=== PATIENT | female | born 1945 | race Caucasian/White ===

== ENCOUNTER → 2018-07-28 | Outpatient (CLI) | payer MEDICARE ==
--- NOTE | 2018-07-28 13:31 | XR ---
EXAMINATION TYPE: XR chest 2V DATE OF EXAM: 07/28/2018 COMPARISON: NONE HISTORY: Cough TECHNIQUE: Frontal and lateral views of the chest are obtained. FINDINGS: There is no focal air space opacity, pleural effusion, or pneumothorax seen. The cardiac silhouette size is within normal limits. There is a spinal curvature. Prominent lung volumes suggest underlying COPD. Bronchial wall thickening is present. Thoracic spondylosis is present. The aorta is dense. The osseous structures are intact. IMPRESSION: Correlate for bronchitis, reactive airways disease.
== END | disposition home or self-care (01) ==
LOC: RADXRMAIN 12:01
PROVIDERS: ATTEND Family Medicine
DX: R05 Cough (principal)
CPT/HCPCS: 71046

== ENCOUNTER → 2018-09-18 | Outpatient (CLI) | payer MEDICARE ==
--- NOTE | 2018-09-18 14:33 | MR ---
EXAMINATION TYPE: MR knee RT wo con DATE OF EXAM: 09/18/2018 COMPARISON: None HISTORY: Rt knee pain TECHNIQUE: Multiplanar, multisequence imaging of the right knee is performed without IV contrast. FINDINGS: There is extensive susceptibility artifact from postsurgical change of the patella severely limiting the examination. MEDIAL MENISCUS: There is truncation and slight blunting of the posterior horn with possible tear of the free edge of the posterior horn of the medial meniscus. LATERAL MENISCUS: The anterior horn is absent, possibly due to prior meniscectomy or tear. Posterior horn appears intact. CRUCIATE LIGAMENTS: Anterior cruciate ligament is nonvisualized on the sagittal view and uncertain to be continuous on the coronal view. Posterior cruciate ligament appears intact and unremarkable. COLLATERAL LIGAMENTS: The medial collateral ligament and lateral collateral ligament complex are inta ct and unremarkable. EXTENSOR MECHANISM: Markedly limited given susceptibility artifact EFFUSION: No significant suprapatellar joint effusion. POPLITEAL CYST: Small popliteal cyst is seen. TRICOMPARTMENT SPACES: There are marginal bicompartmental osteophytes that are moderate. Patella is n ondiagnostic. CARTILAGE: Nondiagnostic given the extensive susceptibility artifact from the prior patellar surgery. BONE MARROW SIGNAL: Focal bone marrow edema is seen of the tibial plateau to the medial tibial eminen juan. IMPRESSION: Exam is extremely limited given prior surgery of the patella/right knee creating susceptibility artif act and limiting visualization. 1. There is a probable radial tear of the free edge of the posterior horn of the medial meniscus. 2. Anterior horn of the lateral meniscus appears absent, possibly due to prior meniscectomy, correlat e with prior surgery. Alternatively displaced tear would be considered in the absence of prior surgic al intervention. 3. Anterior cruciate ligament is nondiagnostic and not well-visualized. Posterior cruciate ligament i s unremarkable. 4. Focal bone marrow edema of the tibia centrally deep to the medial tibial eminences.
== END | disposition home or self-care (01) ==
LOC: RADMRIMAIN 13:35
PROVIDERS: ATTEND Family Medicine
DX: M89.9 Disorder of bone, unspecified (principal)

== ENCOUNTER → 2018-10-07 | Outpatient (CLI) | payer MEDICARE ==
--- NOTE | 2018-10-07 13:50 | MM ---
Reason for exam: screening (asymptomatic). History: Patient is postmenopausal. Family history of breast cancer in sister at age 50. Physical Findings: A clinical breast exam by your physician is recommended on an annual basis and results should be correlated with mammographic findings. MG 3D Screening Mammo W/Cad Bilateral CC and MLO view(s) were taken. The breast tissue is heterogeneously dense. This may lower the sensitivity of mammography. There is no discrete abnormality. ASSESSMENT: Negative, BI-RAD 1 RECOMMENDATION: Routine screening mammogram of both breasts in 1 year.
== END | disposition home or self-care (01) ==
LOC: RADMAMWWP 12:52
PROVIDERS: ATTEND Family Medicine
DX: Z12.31 Encounter for screening mammogram for malignant neoplasm of breast (principal)
CPT/HCPCS: 77063; 77067

== ENCOUNTER → 2022-07-09 | Outpatient (CLI) | payer MEDICARE ==
--- NOTE | 2022-07-09 15:21 | XR ---
EXAMINATION TYPE: XR ribs bilat w pa chest xray DATE OF EXAM: 07/09/2022 CLINICAL HISTORY: Chest and bilateral rib pain after recent fall injury. TECHNIQUE: Single frontal view of the chest is obtained. A frontal and oblique images of the bilatera l ribs. COMPARISON: Chest x-ray July 28, 2018 FINDINGS: There is new right mid lung linear atelectasis and/or scarring. There is bilateral basilar opacity favoring atelectasis. No pleural effusion or pneumothorax is seen bilaterally. The cardiac si lhouette size is stable and within normal limits. The osseous structures are intact. Dedicated images of the bilateral ribs show acute minimally displaced fractures involving the anterio r left 10th rib. No acute displaced right-sided rib fractures. Overlying soft tissue is unremarkable bilaterally. IMPRESSION: 1. Acute minimally displaced fracture anterior left 10th rib. No acute displaced right-sided rib frac tures. 2. New patchy bibasilar atelectasis and right mid lung linear atelectasis and/or scarring.
== END | disposition home or self-care (01) ==
LOC: RADXRMAIN 14:37
PROVIDERS: ATTEND Internal Medicine
DX: S22.32XA Fracture of one rib, left side, initial encounter for closed fracture (principal); R07.82 Intercostal pain; J98.11 Atelectasis
CPT/HCPCS: 71111

== ENCOUNTER → 2022-07-25 | Outpatient (CLI) | payer MEDICARE ==
[2022-07-25 10:17] LABS: Basophils % (A) 0 %; Eosinophils # (A) 0.2 k/uL (0-0.7); Eosinophils % (A) 2 %; HCT 42.3 % (34.0-46.0); Lymphocytes % (A) 12 %; MCH 29.2 pg (25.0-35.0); MCHC 33.1 g/dL (31.0-37.0); Mean Platelet Volume 8.5; Monocytes # (A) 0.5 k/uL (0-1.0); Monocytes % (A) 6 %; Neutrophils # (A) 6.2 k/uL (1.3-7.7); Neutrophils % (A) 77 %; Platelet Count 261 k/uL (150-450); RBC 4.81 m/uL (3.80-5.40)
[2022-07-25 10:34] LABS: ALT 19 U/L (4-34); AST 24 U/L (14-36); African American GFR (CKD) >90 (>60 ml/min/1.73 sqM); Albumin 4.1 g/dL (3.5-5.0); Albumin/Globulin Ratio 1.5; Alkaline Phosphatase 134 U/L (38-126); Anion Gap 9 mmol/L; Blood Urea Nitrogen 13 mg/dL (7-17); Calcium 9.5 mg/dL (8.4-10.2); Carbon Dioxide 26 mmol/L (22-30); Chloride 105 mmol/L (98-107); Globulin 2.7 g/dL; Glucose 95 mg/dL (74-99); Non-African American GFR(CKD) 86 (>60 ml/min/1.73 sqM); Potassium 4.5 mmol/L (3.5-5.1); Sodium 140 mmol/L (137-145); Total Bilirubin 0.9 mg/dL (0.2-1.3); Total Protein 6.8 g/dL (6.3-8.2)
== END | disposition home or self-care (01) ==
LOC: LABWHC1 09:26
PROVIDERS: ATTEND Internal Medicine
DX: R07.81 Pleurodynia (principal)
CPT/HCPCS: 36415; 80053; 84484; 85025; 85379

== ENCOUNTER → 2022-07-25 | Outpatient (CLI) | payer MEDICARE ==
--- NOTE | 2022-07-25 12:57 | CT ---
EXAMINATION TYPE: CT angio chest DATE OF EXAM: 07/25/2022 12:29 PM COMPARISON: X-ray 07/09/2022 HISTORY: elevated d-dimer, recent rib fx CT DLP: 251.9 mGycm Automated exposure control for dose reduction was used. CONTRAST: CTA scan of the thorax is performed with IV Contrast, patient injected with 60cc mL of Isovue 370, pu lmonary embolism protocol. . FINDINGS: LUNGS: The lungs are grossly clear, there is no concerning pneumonia identified. There is no pleura l effusion or pneumothorax seen. The tracheobronchial tree is patent. Benign calcified granuloma rig ht lower lobe. Areas of subsegmental consolidation most typical of scarring or atelectasis bilaterall y lower lobes. One Gonzáles subpleural nodule image 54 right upper lobe mild biapical pleural thickenin g. There is a 4 mm nodule right upper lobe. MEDIASTINUM: There is satisfactory enhancement of the pulmonary artery and its branches, there is no CT evidence for pulmonary embolism. There are no greater than 1 cm hilar or mediastinal lymph nodes. Calcified lymph nodes are seen involving the hilum. No pericardial effusion is seen. OTHER: Multilevel hypertrophic and degenerative changes. There is splenic granuloma. There is a larg e hiatal hernia and there is a scoliosis.. IMPRESSION: 1. Mildly displaced acute fracture anterolateral left 10th rib 2. Subsegmental consolidation bilaterally most typical of scarring or atelectasis. 3. Calcified granuloma right lower lobe. Additional calcified 4 mm which is 103 4. Large hiatal hernia.
== END | disposition home or self-care (01) ==
LOC: RADCTMAIN 11:48
PROVIDERS: ATTEND Internal Medicine
DX: S22.32XA Fracture of one rib, left side, initial encounter for closed fracture (principal); K44.9 Diaphragmatic hernia without obstruction or gangrene; J84.10 Pulmonary fibrosis, unspecified; R79.1 Abnormal coagulation profile
CPT/HCPCS: 71275; Q9967

== ENCOUNTER → 2022-08-16 | Outpatient (CLI) | payer MEDICARE ==
--- NOTE | 2022-08-17 06:17 | XR ---
EXAMINATION TYPE: XR chest 2V DATE OF EXAM: 08/16/2022 COMPARISON: CTA chest May 27, 2022 HISTORY: Difficulty in breathing. TECHNIQUE: Frontal and lateral views of the chest are obtained. FINDINGS: There is mild chronic parenchymal changes bilaterally without suspicious focal air space o pacity, pleural effusion, or pneumothorax seen. The cardiac silhouette size is stable and within nor mal limits. Small to moderate sized hiatal hernia is redemonstrated. Underlying scoliosis is redemons trated. IMPRESSION: No suspicious acute pulmonary process.
== END | disposition home or self-care (01) ==
LOC: RADXRMAIN 16:18
PROVIDERS: ATTEND Internal Medicine
DX: R07.82 Intercostal pain (principal); R06.00 Dyspnea, unspecified
CPT/HCPCS: 71046

== ENCOUNTER → 2022-09-06 | Outpatient (CLI) | payer MEDICARE ==
--- NOTE | 2022-09-07 18:28 | MM ---
Reason for Exam: Screening (asymptomatic). Last mammogram was performed 3 year(s) and 11 month(s) ago. Patient History: Menarche at age 13. First Full-Term at age 15. Postmenopausal. Patient has history of breast feeding. Sister had breast cancer, age 50. Risk Values: Lory 5 year model risk: 2.9%. NCI Lifetime model risk: 4.8%. Prior Study Comparison: 10/07/2018 Bilateral Screening Mammogram, [facility]. Tissue Density: There are scattered fibroglandular densities. Findings: Analyzed By CAD. There is no suspicious group of microcalcifications or new suspicious mass in either breast. Overall Assessment: Negative, BI-RAD 1 Management: Screening Mammogram of both breasts in 1 year. . Patient should continue monthly self-breast exams. A clinical breast exam by your physician is recommended on an annual basis. This exam should not preclude additional follow-up of suspicious palpable abnormalities. Note on Lory scores and lifetime risk: 1. A Lory score greater than 3% is considered moderate risk. If this is the case, consider specialist referral to assess eligibility for a risk reducing agent. 2. If overall lifetime risk for the development of breast cancer is 20% or higher, the patient may qualify for future screening with alternating mammogram and breast MRI. Electronically signed and approved by: Jessika Hadley M.D. Radiologist
== END | disposition home or self-care (01) ==
LOC: RADMAMWWP 15:47
PROVIDERS: ATTEND Internal Medicine
DX: Z12.31 Encounter for screening mammogram for malignant neoplasm of breast (principal); I10 Essential (primary) hypertension; Z80.3 Family history of malignant neoplasm of breast; Z78.0 Asymptomatic menopausal state
CPT/HCPCS: 77063; 77067

== ENCOUNTER → 2023-02-25 | Outpatient (CLI) | payer MEDICARE ==
--- NOTE | 2023-02-25 15:01 | XR ---
EXAMINATION TYPE: XR thoracic spine 2V DATE OF EXAM: 02/25/2023 COMPARISON: None HISTORY: Thoracic spine pain, fall TECHNIQUE: 3 view thoracic spine FINDINGS: Mild degenerative disc changes are present. Spondylosis is present. A scoliosis is present. There are 12 thoracic type vertebral bodies. Pedicles are intact. Vertebral body heights are preserv ed IMPRESSION: 1. Chronic changes with scoliosis and degenerative disc changes. No acute osseous abnormality eviden t
== END | disposition home or self-care (01) ==
LOC: RADXRMAIN 14:26
PROVIDERS: ATTEND Internal Medicine
DX: M51.34 Other intervertebral disc degeneration, thoracic region (principal); M47.814 Spondylosis without myelopathy or radiculopathy, thoracic region; M41.84 Other forms of scoliosis, thoracic region
CPT/HCPCS: 72070

== ENCOUNTER → 2023-03-22 | Outpatient (CLI) | payer MEDICARE ==
[~2023-03-22] MED LIST: SODIUM CHLORIDE 0.9% 500 ML 500 ML in EMPTY BAG 1 BAG IV PRN; ZOLEDRONIC ACID 5 MG in SODIUM CHLORIDE 0.9% 100 ML IV NR
[2023-03-22 13:31] VITALS: BP 126/72; PULSE 93; RESP 16; TEMP 98.1
== END ==
LOC: PROCWHC3 12:50
PROVIDERS: ATTEND Internal Medicine
DX: M81.0 Age-related osteoporosis without current pathological fracture (principal)
CPT/HCPCS: 96365; J3489

== ENCOUNTER → 2023-07-11 | Outpatient (CLI) | payer MEDICARE ==
[2023-07-12 03:01] LABS: Reticulocyte % 1.08 % (0.10-1.80)
[2023-07-12 03:39] LABS: % Iron Saturation 3.39 (12.00-45.00); Carcinoembryonic Antigen 2.1 ng/mL (0.0-4.9); Ferritin 12.2 ng/mL (10.0-291.0)
[2023-07-12 12:33] LABS: Free Kappa Lt Chain Qnt, Serum 2.26 mg/dL (0.33-1.94); Free Lambda Lt Chain Qnt, Seru 1.99 mg/dL (0.57-2.63)
== END | disposition home or self-care (01) ==
LOC: LABWHC1 15:10
PROVIDERS: ATTEND Internal Medicine
DX: I34.0 Nonrheumatic mitral (valve) insufficiency (principal); M81.0 Age-related osteoporosis without current pathological fracture; M17.9 Osteoarthritis of knee, unspecified; E78.2 Mixed hyperlipidemia; K21.9 Gastro-esophageal reflux disease without esophagitis; R91.1 Solitary pulmonary nodule
CPT/HCPCS: 36415; 82378; 82607; 82728; 82746; 83010; 83540; 83550; 83615; 83880; 83883; 84165; 85045

== ENCOUNTER → 2023-07-17 | Outpatient (CLI) | payer MEDICARE ==
[2023-07-17 09:30] LABS: African American GFR (CKD) >90 (>60 ml/min/1.73 sqM); Blood Urea Nitrogen 12 mg/dL (7-17); Non-African American GFR(CKD) 88 (>60 ml/min/1.73 sqM)
--- NOTE | 2023-07-17 21:27 | NM ---
EXAMINATION TYPE: NM bone scan whole body DATE OF EXAM: 07/17/2023 COMPARISON: CT chest, CT abdomen and pelvis HISTORY: Anemia Delayed whole-body scanning was performed following the injection of 22.6 mCi Tc 99m MDP. Images wer e acquired 3.5 hours post injection. FINDINGS: There is a left hip prosthesis. Some uptake at the distal stem of the left hip prosthesis c an be normal with a prosthesis present. There is increased radiotracer at the lateral greater trochan ter. Underlying fracture is not excluded. No definite abnormality identified on the CT abdomen and pe lvis images. However, a series very limited due to significant beam hardening artifact at this level. There is a right knee prosthesis. There is a focus of radiotracer accumulation within the medial posterior 11th right rib. 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 There is increased radiotracer within the posterior right L3-4 and L4-5 region likely degenerative in nature within the scoliotic lumbar spine. Some focal uptake appears to be within the proximal sternu m near the sternomanubrial junction. This appears to correlate with a prior fracture which may have i ncomplete healing. IMPRESSION: 1. Radiotracer accumulation within the sternum and posterior right medial 11th rib correlate with arielle or fractures. 2. Uptake within the left greater trochanter of uncertain etiology.
--- NOTE | 2023-07-19 16:32 | CT ---
EXAMINATION TYPE: CT chest wo con CT DLP: combined 1025.6 mGycm, Automated exposure control for dose reduction was used. DATE OF EXAM: 07/17/2023 11:50 AM COMPARISON: Chest radiograph from same day. Multiple CTs of the chest with most recent on . CLINICAL INDICATION:Female, 78 years old with history of R91.1 RUL pulmonary nodule; PHH, anemia, ruben g nodule TECHNIQUE: Multiple axial images were obtained through the chest. Sagittal and coronal reformats were created for review. Contrast used: mL of (None if empty) Oral contrast used: (None if empty) FINDINGS: LUNGS/ PLEURA: 2 mm nodule identified on acquisition. Previously discussed 4 mm nodules are reidentif ied. Calcified granulomas reidentified in the right lung. Right lower lobe. 3 mm nodule, Image 28 in the right middle lobe appears substantially smaller AIRWAY: Patent and unremarkable. HEART: Size within normal limits. MEDIASTINUM: No gross evidence of adenopathy. VASCULATURE: No aortic aneurysm. MUSCULOSKELETAL: No acute osseous abnormalities SOFT TISSUES/LYMPH NODES: Unremarkable. LOWER NECK: No significant findings. UPPER ABDOMEN: Gastric pull-through versus IMPRESSION: Stable tiny nodules. No further follow-up required per guidelines Follow up recommendations for incidental pulmonary nodules, if there are any, are per Fleischner?s [employer] or [employer]. [email or web address]=us
--- NOTE | 2023-07-22 17:15 | CT ---
EXAMINATION TYPE: CT abdomen pelvis w con CT DLP: combined 1025.6 mGycm, Automated exposure control for dose reduction was used. DATE OF EXAM: 07/17/2023 11:50 AM COMPARISON: CT abdomen pelvis most recent from CLINICAL INDICATION:Female, 78 years old with history of D64.9 anemia; anemia TECHNIQUE: Axial CT abdomen pelvis w con;Sagittal and coronal reformats were created on a separate w orkstation. Contrast used:100 mL of Isovue 300 with IV Contrast, (none if empty) Oral contrast used: with Oral Contrast (none if empty) FINDINGS: LOWER CHEST: Calcified granuloma right lung base. Platelike atelectasis right base posteriorly. ABDOMEN LIVER: Faintly seen calcified granuloma In the right lung. Calcified granulomas spleen indicating hea led granulomatous disease. No active process. GALLBLADDER AND BILE DUCTS: Unremarkable. PANCREAS: Unremarkable. SPLEEN: Healed Granulomatous disease. Acute process. ADRENAL GLANDS: Unremarkable. KIDNEYS AND URETERS: No evidence of hydronephrosis or renal calculus. The ureters are unremarkable. PELVIS BLADDER: Unremarkable REPRODUCTIVE: Unremarkable. ABDOMEN & PELVIS STOMACH AND BOWEL: Stomach and duodenum are unremarkable. No evidence of bowel obstruction. Divertic ulosis. PERITONEUM/RETROPERITONEUM: No evidence of pneumoperitoneum or free fluid. VASCULATURE: No evidence of aortic aneurysm. MUSCULOSKELETAL: No acute osseous abnormalities. Left Hip arthroplasty. Multilevel vacuum disc and en dplate spondylosis. Disc osteophyte complexes LYMPH NODES: No gross evidence for lymphadenopathy. SOFT TISSUE/ABDOMINAL WALL: Unremarkable IMPRESSION: 1. No acute process detected.
== END | disposition home or self-care (01) ==
LOC: RADNMMAIN 08:44
PROVIDERS: ATTEND Internal Medicine
DX: D64.9 Anemia, unspecified (principal); R91.1 Solitary pulmonary nodule; R91.8 Other nonspecific abnormal finding of lung field; Z96.642 Presence of left artificial hip joint; Z96.651 Presence of right artificial knee joint
CPT/HCPCS: 82565; 84520; 71250; 74177; 36415; 78306; A9503; Q9967

== ENCOUNTER → 2023-07-18 | Outpatient (CLI) | payer MEDICARE ==
--- NOTE | 2023-07-18 20:19 | US ---
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 TECHNIQUE: Carotid duplex ultrasound examination. Indirect Doppler criteria was utilized. FINDINGS: EXAM MEASUREMENTS: RIGHT: Peak Systolic Velocity (PSV) cm/sec ----- Right CCA: 72.4 ----- Right ICA: 81.2 ----- Right ECA: 149.5 ICA/CCA ratio: 1.1 RIGHT: End Diastole cm/sec ----- Right CCA: 13.1 ----- Right ICA: 21.9 ----- Right ECA: 9.7 LEFT: Peak Systolic Velocity (PSV) cm/sec ----- Left CCA: 79.8 ----- Left ICA: 96.8 ----- Left ECA: 79.7 ICA/CCA ratio: 1.2 LEFT: End Diastole cm/sec ----- Left CCA: 17.1 ----- Left ICA: 20.8 ----- Left ECA: 11.1 VERTEBRALS (direction of flow): Right Vertebral: Antegrade Left Vertebral: Antegrade Rhythm: Normal CREDIT OPERATIONS SPECIALIST NOTES: Mild plaque bilateral bifurcation. Elevated velocity seen right ECA. IMPRESSION: 1. Atheromatous plaquing without significant flow-limiting stenosis internal carotid arteries. 2. There may be some moderate narrowing of the right external carotid artery based on velocities Criteria for Assigning % of Stenosis / Diameter reduction (Estimation based on the indirect measurements of the internal carotid artery velocities (ICA PSV). 1. Normal (no stenosis)=ICA PSV < 125 cm/s: ratio < 2.0: ICA EDV<40 cm/s. 2. Less than 50% stenosis=ICA PSV < 125 cm/s: ratio < 2.0: ICA EDV<40 cm/s. 3. 50 to 69% stenosis=ICA PSV of 125 to 230 cm/s: ration 2.0 ? 4.0: ICA EDV 40-100 cm/s. 4. Greater than 70% stenosis to near occlusion= ICA PSV > 230 cm/s: ratio > 4.0: ICA EDV > 100 cm/s. 5. Near occlusion= ICA PSV velocities may be low or undetectable: variable ratio and ICA EDV. 6. Total occlusion=unable to detect flow.
== END | disposition home or self-care (01) ==
LOC: RADUSWWP 14:01
PROVIDERS: ATTEND Internal Medicine
DX: I65.23 Occlusion and stenosis of bilateral carotid arteries (principal); I34.0 Nonrheumatic mitral (valve) insufficiency
CPT/HCPCS: 93880

== ENCOUNTER → 2023-09-10 | Outpatient (CLI) | payer MEDICARE ==
--- NOTE | 2023-09-19 13:37 | MM ---
Reason for Exam: Screening (asymptomatic). Last screening mammogram was performed 12 month(s) ago. Patient History: Menarche at age 13. First Full-Term at age 15. Postmenopausal. Patient has history of breast feeding. Sister had breast cancer, age 50. Risk Values: Lory 5 year model risk: 2.8%. NCI Lifetime model risk: 4.3%. Prior Study Comparison: 10/07/2018 Bilateral Screening Mammogram, [facility]. 09/06/2022 Bilateral MG 3D screening mammo w/cad, [facility]. Tissue Density: There are scattered areas of fibroglandular density. Findings: Analyzed By CAD. Subareolar focal asymmetry on the right remains unchanged. No significant change from prior exams. There is no suspicious group of microcalcifications or new suspicious mass in either breast. Overall Assessment: Benign, BI-RAD 2 Management: Screening Mammogram of both breasts in 1 year. . Patient should continue monthly self-breast exams. A clinical breast exam by your physician is recommended on an annual basis. This exam should not preclude additional follow-up of suspicious palpable abnormalities. Note on Lory scores and lifetime risk: 1. A Lory score greater than 3% is considered moderate risk. If this is the case, consider specialist referral to assess eligibility for a risk reducing agent. 2. If overall lifetime risk for the development of breast cancer is 20% or higher, the patient may qualify for future screening with alternating mammogram and breast MRI. Electronically signed and approved by: Jessika Hadley M.D. Radiologist
== END | disposition home or self-care (01) ==
LOC: RADMAMWWP 13:37
PROVIDERS: ATTEND Internal Medicine
DX: Z12.31 Encounter for screening mammogram for malignant neoplasm of breast (principal); Z80.3 Family history of malignant neoplasm of breast; Z78.0 Asymptomatic menopausal state
CPT/HCPCS: 77067

== ENCOUNTER → 2023-09-19 | Outpatient (CLI) | payer MEDICARE | END | disposition home or self-care (01) | LOC: RADMAMWWP 12:48 | PROVIDERS: ATTEND Internal Medicine | DX: R92.8 Other abnormal and inconclusive findings on diagnostic imaging of breast (principal) ==

== ENCOUNTER 2023-10-06 04:57 | Inpatient (IN) | payer MEDICARE ==
[2023-10-06] MEDS: PIPERACILLIN-TAZOBACTAM 3.375 GM in SODIUM CHLORIDE 0.9% 100 ML IVPB STA (05:29)
[2023-10-06 06:17] LABS: Prothrombin Time 10.8 sec (10.0-12.5)
[2023-10-06 06:19] LABS: Basophils % (A) 0 %; Eosinophils % (A) 1 %; HCT 37.3 % (34.0-46.0); HGB 11.8 gm/dL (11.4-16.0); Hypochromasia Marked; Lymphocytes # (A) 1.7 k/uL (1.0-4.8); Lymphocytes % (A) 31 %; MCH 27.3 pg (25.0-35.0); MCHC 31.6 g/dL (31.0-37.0); MCV 86.4 fL (80.0-100.0); Mean Platelet Volume 11.3; Monocytes # (A) 0.1 k/uL (0-1.0); Monocytes % (A) 2 %; Neutrophils # (A) 3.3 k/uL (1.3-7.7); Neutrophils % (A) 61 %; Platelet Count 174 k/uL (150-450); RBC 4.32 m/uL (3.80-5.40); RDW 15.6 % (11.5-15.5); WBC 5.3 k/uL (3.8-10.6)
[2023-10-06 06:39] LABS: ALT 23 U/L (4-34); African American GFR (CKD) 84 (>60 ml/min/1.73 sqM); Anion Gap 14 mmol/L; Blood Urea Nitrogen 18 mg/dL (7-17); Calcium 8.7 mg/dL (8.4-10.2); Carbon Dioxide 19 mmol/L (22-30); Chloride 104 mmol/L (98-107); Glucose 116 mg/dL (74-99); Non-African American GFR(CKD) 73 (>60 ml/min/1.73 sqM); Sodium 137 mmol/L (137-145)
[2023-10-06 06:41] LABS: AST 61 U/L (14-36); Albumin 4.5 g/dL (3.5-5.0); Alkaline Phosphatase 101 U/L (38-126); Potassium 5.1 mmol/L (3.5-5.1); Total Bilirubin 1.1 mg/dL (0.2-1.3); Total Protein 7.3 g/dL (6.3-8.2)
[2023-10-06 06:42] LABS: Partial Thromboplastin Time 16.7 sec (22.0-30.0)
[2023-10-06 06:47] LABS: NT-Pro-B-Type Natriuretic Pept 60 pg/mL
[2023-10-06] MEDS: AZITHROMYCIN 500 MG in SODIUM CHLORIDE 0.9% 250 ML IVPB STA (06:52)
[2023-10-06] MEDS: SODIUM CHLORIDE 0.9% 1,000 ML IV ONE (06:58)
[2023-10-06] MEDS: SODIUM CHLORIDE 0.9% 500 ML 500 ML IV STA (06:58)
--- NOTE | 2023-10-06 07:18 | XR ---
EXAMINATION TYPE: XR chest 1V portable DATE OF EXAM: 10/06/2023 5:13 AM CLINICAL INDICATION:Female, 78 years old with history of dyspnea; COMPARISON: Chest radiographs from 11/09/2022. TECHNIQUE: XR chest 1V portable Frontal view of the chest. FINDINGS: Lungs/Pleura: Left-sided airspace opacities. There is no evidence of pleural effusion, right focal co nsolidation, or pneumothorax. Pulmonary vascularity: Unremarkable. Heart/mediastinum: Cardiomediastinal silhouette is unremarkable. Musculoskeletal: No acute osseous pathology. IMPRESSION: Left predominant airspace opacities correlate for pneumonia.
[2023-10-06] MEDS: SODIUM CHLORIDE 0.9% 1,000 ML IV STA (07:34)
--- NOTE | 2023-10-06 08:17 | ED ---
SOB HPI - General Chief Complaint: Shortness of Breath Stated Complaint: HAYDE Time Seen by Provider: 10/06/23 05:02 Source: patient, EMS Mode of arrival: EMS Limitations: altered mental status - History of Present Illness Initial Comments: Patient is an 78-year-old woman arriving by ambulance to have evaluation for cough and shortness of breath. History comes from both the patient and her . She started to have a cough approximately 1 week ago. Over the past few days she was coughing more frequently and starting to bring up some sputum. Over the course of last night into this morning she was becoming progressively more short of breath. The patient denies history of previous pulmonary disease. Denies history of congestive heart failure or heart disease. She was not sure if she had fever or not. MD Complaint: shortness of breath, cough Onset/Timin -: week(s) Consistency: constant Improves With: nothing Worsens With: nothing Associated Symptoms: cough, sputum production Treatments Prior to Arrival: oxygen - Related Data Home Oxygen Therapy: No Home Medications Medication Instructions Recorded Confirmed Atorvastatin [Lipitor] 40 mg PO DAILY 11/06/22 10/06/23 Bimatoprost [[place]umigan 0.01% Ophth 1 drop BOTH EYES HS 11/06/22 10/06/23 Soln] Calcium Carbonate [Calcium] 600 mg PO HS 11/06/22 10/06/23 Cholecalciferol [Vitamin D3 (25 25 mcg PO DAILY 11/06/22 10/06/23 Mcg = 1000 Iu)] Cranberry 4200 Mg 4,200 mg PO DAILY 11/06/22 10/06/23 Escitalopram [Lexapro] 5 mg PO HS 11/06/22 10/06/23 Gabapentin 300 mg PO TID 11/06/22 10/06/23 Ezetimibe [Zetia] 10 mg PO DAILY 10/06/23 10/06/23 HYDROcodone/APAP 5-325MG [[place] 1 tab PO BID PRN 10/06/23 10/06/23 5-325] Lansoprazole [Prevacid] 30 mg PO DAILY 10/06/23 10/06/23 Zoledronic Acid 5Mg/100Ml Pmx 1 dose IVPB Q365D 10/06/23 10/06/23 [Reclast] Previous Rx's Medication Instructions Recorded Amoxic-Pot Clav 875-125Mg 1 tab PO Q12HR 7 Days #14 tab 10/13/23 [Augmentin 875-125] Apixaban [Eliquis] 5 mg PO BID #60 tab 10/13/23 Aspirin 81 mg PO HS tab 10/13/23 Diltiazem Oral [Cardizem*] 30 mg PO TID 30 Days #90 tab 10/13/23 Furosemide [Lasix] 40 mg PO DAILY #30 tab 10/13/23 Nystatin 100,000 Unit/ml Susp 500,000 unit PO QID 7 Days #473 ml 10/13/23 [Mycostatin Oral Susp] Allergies Allergy/AdvReac Type Severity Reaction Status Date / Time No Known Allergies Allergy Verified 10/06/23 11:20 Review of Systems ROS Statement: Those systems with pertinent positive or pertinent negative responses have been documented in the HPI. ROS Other: All systems not noted in ROS Statement are negative. Constitutional: Reports: weakness Respiratory: Reports: cough, dyspnea Cardiovascular: Denies: chest pain, palpitations, edema, syncope Gastrointestinal: Denies: abdominal pain, nausea, vomiting, diarrhea Genitourinary: Denies: dysuria, hematuria Musculoskeletal: Denies: back pain Skin: Denies: rash Neurological: Denies: headache, weakness, numbness Past Medical History Past Medical History: Hyperlipidemia Additional Past Medical History / Comment(s): chronic back pain History of Any Multi-Drug Resistant Organisms: None Reported Past Surgical History: Hysterectomy, Orthopedic Surgery, Tonsillectomy Additional Past Surgical History / Comment(s): bilat knee sx, foot sx x2 Past Anesthesia/Blood Transfusion Reactions: No Reported Reaction Past Psychological History: Depression Smoking Status: Former smoker - Past Family History Sister(s) Family Medical History: Cancer General Exam Limitations: altered mental status General appearance: obtunded, in distress Head exam: Present: atraumatic, normocephalic Eye exam: Present: normal appearance. Absent: scleral icterus, conjunctival injection ENT exam: Present: mucous membranes dry Neck exam: Present: normal inspection Respiratory exam: Present: respiratory distress, rales (Left greater than right), rhonchi. Absent: wheezes, stridor, accessory muscle use Cardiovascular Exam: Present: normal rhythm, tachycardia, normal heart sounds. Absent: systolic murmur, diastolic murmur, rubs, gallop GI/Abdominal exam: Present: soft. Absent: distended, tenderness, guarding, rebound, rigid, mass Extremities exam: Present: normal inspection, normal capillary refill. Absent: pedal edema, calf tenderness Back exam: Present: normal inspection. Absent: CVA tenderness (R), CVA tenderness (L) Neurological exam: Present: altered, CN II-XII intact, other (Patient is somnolent but arousable.). Absent: motor sensory deficit Skin exam: Present: warm, dry, intact, normal color. Absent: rash Course Vital Signs 10/06/23 10/06/23 10/06/23 04:58 05:16 05:21 Temperature 100.2 F H Pulse Rate 121 H 122 H Pulse Rate [ Ash Handler ] Respiratory 27 H 23 Rate Blood Pressure 144/119 128/85 Blood Pressure [Right Arm] O2 Sat by Pulse 89 L 100 Oximetry Fraction of 100 Inspired Oxygen (FIO2) 10/06/23 10/06/23 10/06/23 06:00 06:29 07:02 Temperature 101.3 F H 99.2 F Pulse Rate 126 H 99 Pulse Rate [ Ash Handler ] Respiratory 24 20 Rate Blood Pressure 125/63 108/59 Blood Pressure [Right Arm] O2 Sat by Pulse 98 100 Oximetry Fraction of Inspired Oxygen (FIO2) 10/06/23 10/06/23 10/06/23 07:31 07:59 09:25 Temperature 99 F Pulse Rate 97 90 Pulse Rate [ Ash Handler ] Respiratory 18 15 Rate Blood Pressure 112/63 115/64 Blood Pressure [Right Arm] O2 Sat by Pulse 100 96 Oximetry Fraction of 100 Inspired Oxygen (FIO2) 10/06/23 10/06/23 10/06/23 11:24 11:59 12:09 Temperature 99.3 F Pulse Rate 94 91 Pulse Rate [ 92 Ash Handler ] Respiratory 18 18 18 Rate Blood Pressure Blood Pressure 111/57 [Right Arm] O2 Sat by Pulse 95 Oximetry Fraction of Inspired Oxygen (FIO2) 10/06/23 10/06/23 10/06/23 14:00 15:24 15:34 Temperature Pulse Rate 93 91 Pulse Rate [ Ash Handler ] Respiratory 18 18 18 Rate Blood Pressure Blood Pressure [Right Arm] O2 Sat by Pulse Oximetry Fraction of Inspired Oxygen (FIO2) 10/06/23 10/06/23 10/07/23 16:00 21:48 00:01 Temperature 98.4 F 99.7 F H 97.7 F Pulse Rate 86 85 Pulse Rate [ 96 Ash Handler ] Respiratory 18 18 21 Rate Blood Pressure 115/44 106/52 Blood Pressure 112/55 [Right Arm] O2 Sat by Pulse 93 L 96 97 Oximetry Fraction of Inspired Oxygen (FIO2) 10/07/23 02:02 Temperature Pulse Rate 80 Pulse Rate [ Ash Handler ] Respiratory 20 Rate Blood Pressure 105/52 Blood Pressure [Right Arm] O2 Sat by Pulse 99 Oximetry Fraction of Inspired Oxygen (FIO2) Medical Decision Making - Medical Decision Making Patient is an 78-year-old woman arriving for cough, shortness of breath getting progressively worse. On arrival she is in respiratory distress and initially placed on BiPAP. The patient's vital signs began to improve, she became less tachypneic, the tachycardia resolved, and her oxygen saturations improved. The patient did subsequently have an episode of vomiting and as her level of consciousness was fluctuating, it was not safe to keep her on the BiPAP with vomiting. The patient's Chest x-ray did show left-sided pneumonia, as interpreted by myself. The patient started on antibiotics and sepsis bolus. Case discussed with admitting physician Was pt. sent in by a medical professional or institution (, PA, [facility], urgent care, hospital, or half-way...) When possible be specific @ -[No] Did you speak to anyone other than the patient for history (EMS, parent, family, police, friend...)? What history was obtained from this source @ -[The patient's gave considerable portion of the history Did you review nursing and triage notes (agree or disagree)? Why? @ -[I reviewed and agree with nursing and triage notes] Were old charts reviewed (outside hosp., previous admission, EMS record, old EKG, old radiological studies, urgent care reports/EKG's, half-way records)? Report findings @ -[No old charts were reviewed] Differential Diagnosis (chest pain, altered mental status, abdominal pain women, abdominal pain men, vaginal bleeding, weakness, fever, dyspnea, syncope, headache, dizziness, GI bleed, back pain, seizure, CVA, palpatations, mental health, musculoskeletal)? @ -[Differential Dyspnea: Coronary syndrome, arrhythmia, tamponade, asthma, COPD, pulmonary embolism, pneumonia, pneumothorax, pulmonary effusion, anaphylaxis, diabetic ketoacidosis, flailed chest, pulmonary contusion, diaphragmatic rupture, anemia, neuromuscular, this is not meant to be an all-inclusive list. EKG interpreted by me (3pts min.). @ -[I interpreted acute pneumonia as above] X-rays interpreted by me (1pt min.). @ -[I interpreted as above CT interpreted by me (1pt min.). @ -[None done] U/S interpreted by me (1pt. min.). @ -[None done] What testing was considered but not performed or refused? (CT, X-rays, U/S, labs)? Why? @ -[None] What meds were considered but not given or refused? Why? @ -[None] Did you discuss the management of the patient with other professionals (professionals i.e. , PA, [facility], lab, RT, psych nurse, forensic social worker, research computing specialist, teacher, truant officer, case advocate)? Give summary @ -[Case discussed with admitting physician and also with the mule spinner service and their treatment recommendations are incorporated Was smoking cessation discussed for >3mins.? @ -[No] Was critical care preformed (if so, how long)? @ -[Yes 30 minutes Were there social determinants of health that impacted care today? How? (Homelessness, low income, unemployed, alcoholism, drug addiction, transportation, low edu. Level, literacy, decrease access to med. care, half-way, rehab)? @ -[No] Was there de-escalation of care discussed even if they declined (Discuss DNR or withdrawal of care, Hospice)? DNR status @ -[No] What co-morbidities impacted this encounter? (DM, HTN, Smoking, COPD, CAD, Cancer, CVA, ARF, Chemo, Hep., AIDS, mental health diagnosis, sleep apnea, morbid obesity)? @ -[None] Was patient admitted / discharged? Hospital course, mention meds given and route, prescriptions, significant lab abnormalities, going to OR and other pertinent info. @ -[As above Undiagnosed new problem with uncertain prognosis? @ -[No] Drug Therapy requiring intensive monitoring for toxicity (Heparin, Nitro, Insulin, Cardizem)? @ -[No] Were any procedures done? @ -[No] Diagnosis/symptom? @ -[Acute pneumonia Sepsis Lactic acidosis Acute, or Chronic, or Acute on Chronic? @ -[Acute Uncomplicated (without systemic symptoms) or Complicated (systemic symptoms)? @ -[Complicated by mental status change Side effects of treatment? @ -[No] Exacerbation, Progression, or Severe Exacerbation? @ -[No] Poses a threat to life or bodily function? How? (Chest pain, [place], [place], pneumonia, PE, COPD, DKA, ARF, appy, cholecystitis, CVA, Diverticulitis, Homicidal, Suicidal, threat to staff... and all critical care pts) @ -[Yes - Lab Data Result diagrams: 10/13/23 05:50 10/13/23 05:50 Lab Results 10/06/23 10/06/23 10/06/23 Range/Units 05:16 05:16 05:16 WBC 5.3 (3.8-10.6) k/uL RBC 4.32 (3.80-5.40) m/uL Hgb 11.8 (11.4-16.0) gm/dL Hct 37.3 (34.0-46.0) % MCV 86.4 (80.0-100.0) fL MCH 27.3 (25.0-35.0) pg MCHC 31.6 (31.0-37.0) g/dL RDW 15.6 H (11.5-15.5) % Plt Count 174 (150-450) k/uL MPV 11.3 Neutrophils % 61 % Lymphocytes % 31 % Monocytes % 2 % Eosinophils % 1 % Basophils % 0 % Neutrophils # 3.3 (1.3-7.7) k/uL Lymphocytes # 1.7 (1.0-4.8) k/uL Monocytes # 0.1 (0-1.0) k/uL Eosinophils # 0.0 (0-0.7) k/uL Basophils # 0.0 (0-0.2) k/uL Hypochromasia Marked PT 10.8 (10.0-12.5) sec INR 1.0 (<1.2) APTT 16.7 L (22.0-30.0) sec Sodium 137 (137-145) mmol/L Potassium 5.1 (3.5-5.1) mmol/L Chloride 104 (98-107) mmol/L Carbon Dioxide 19 L (22-30) mmol/L Anion Gap 14 mmol/L BUN 18 H (7-17) mg/dL Creatinine 0.77 (0.52-1.04) mg/dL Est GFR (CKD-EPI)AfAm 84 (>60 ml/min/1.73 sqM) Est GFR (CKD-EPI)NonAf 73 (>60 ml/min/1.73 sqM) Glucose 116 H (74-99) mg/dL Lactic Ac Sepsis Rflx Plasma Lactic Acid Ayo (0.7-2.0) mmol/L Calcium 8.7 (8.4-10.2) mg/dL Total Bilirubin 1.1 (0.2-1.3) mg/dL AST 61 H (14-36) U/L ALT 23 (4-34) U/L Alkaline Phosphatase 101 (38-126) U/L Troponin I (0.000-0.034) ng/mL NT-Pro-B Natriuret Pep 60 pg/mL Total Protein 7.3 (6.3-8.2) g/dL Albumin 4.5 (3.5-5.0) g/dL Influenza Type A (PCR) (Not Detectd) Influenza Type B (PCR) (Not Detectd) RSV (PCR) (Not Detectd) SARS-CoV-2 (PCR) (Not Detectd) 10/06/23 10/06/23 10/06/23 Range/Units 05:16 05:16 05:16 WBC (3.8-10.6) k/uL RBC (3.80-5.40) m/uL Hgb (11.4-16.0) gm/dL Hct (34.0-46.0) % MCV (80.0-100.0) fL MCH (25.0-35.0) pg MCHC (31.0-37.0) g/dL RDW (11.5-15.5) % Plt Count (150-450) k/uL MPV Neutrophils % % Lymphocytes % % Monocytes % % Eosinophils % % Basophils % % Neutrophils # (1.3-7.7) k/uL Lymphocytes # (1.0-4.8) k/uL Monocytes # (0-1.0) k/uL Eosinophils # (0-0.7) k/uL Basophils # (0-0.2) k/uL Hypochromasia PT (10.0-12.5) sec INR (<1.2) APTT (22.0-30.0) sec Sodium (137-145) mmol/L Potassium (3.5-5.1) mmol/L Chloride (98-107) mmol/L Carbon Dioxide (22-30) mmol/L Anion Gap mmol/L BUN (7-17) mg/dL Creatinine (0.52-1.04) mg/dL Est GFR (CKD-EPI)AfAm (>60 ml/min/1.73 sqM) Est GFR (CKD-EPI)NonAf (>60 ml/min/1.73 sqM) Glucose (74-99) mg/dL Lactic Ac Sepsis Rflx Plasma Lactic Acid Ayo 5.2 H* (0.7-2.0) mmol/L Calcium (8.4-10.2) mg/dL Total Bilirubin (0.2-1.3) mg/dL AST (14-36) U/L ALT (4-34) U/L Alkaline Phosphatase (38-126) U/L Troponin I <0.012 (0.000-0.034) ng/mL NT-Pro-B Natriuret Pep pg/mL Total Protein (6.3-8.2) g/dL Albumin (3.5-5.0) g/dL Influenza Type A (PCR) Not Detected (Not Detectd) Influenza Type B (PCR) Not Detected (Not Detectd) RSV (PCR) Not Detected (Not Detectd) SARS-CoV-2 (PCR) Not Detected (Not Detectd) 10/06/23 Range/Units 06:45 WBC (3.8-10.6) k/uL RBC (3.80-5.40) m/uL Hgb (11.4-16.0) gm/dL Hct (34.0-46.0) % MCV (80.0-100.0) fL MCH (25.0-35.0) pg MCHC (31.0-37.0) g/dL RDW (11.5-15.5) % Plt Count (150-450) k/uL MPV Neutrophils % % Lymphocytes % % Monocytes % % Eosinophils % % Basophils % % Neutrophils # (1.3-7.7) k/uL Lymphocytes # (1.0-4.8) k/uL Monocytes # (0-1.0) k/uL Eosinophils # (0-0.7) k/uL Basophils # (0-0.2) k/uL Hypochromasia PT (10.0-12.5) sec INR (<1.2) APTT (22.0-30.0) sec Sodium (137-145) mmol/L Potassium (3.5-5.1) mmol/L Chloride (98-107) mmol/L Carbon Dioxide (22-30) mmol/L Anion Gap mmol/L BUN (7-17) mg/dL Creatinine (0.52-1.04) mg/dL Est GFR (CKD-EPI)AfAm (>60 ml/min/1.73 sqM) Est GFR (CKD-EPI)NonAf (>60 ml/min/1.73 sqM) Glucose (74-99) mg/dL Lactic Ac Sepsis Rflx Y Plasma Lactic Acid Ayo (0.7-2.0) mmol/L Calcium (8.4-10.2) mg/dL Total Bilirubin (0.2-1.3) mg/dL AST (14-36) U/L ALT (4-34) U/L Alkaline Phosphatase (38-126) U/L Troponin I (0.000-0.034) ng/mL NT-Pro-B Natriuret Pep pg/mL Total Protein (6.3-8.2) g/dL Albumin (3.5-5.0) g/dL Influenza Type A (PCR) (Not Detectd) Influenza Type B (PCR) (Not Detectd) RSV (PCR) (Not Detectd) SARS-CoV-2 (PCR) (Not Detectd) Disposition Clinical Impression: Pneumonia, Sepsis Disposition: ADMITTED IP TO THIS HOSP Condition: Stable Is patient prescribed a controlled substance at d/c from ED?: No
[2023-10-06] MEDS: FAMOTIDINE 20 MG/2 ML VIAL IV SCH (08:46)
[2023-10-06] MEDS: CHOLECALCIFEROL 25 MCG (1000 IU) TABLET PO SCH (08:47)
[2023-10-06] MEDS: DOCUSATE 100 MG CAP PO SCH (08:47)
[2023-10-06] MEDS: ATORVASTATIN 40 MG TAB PO SCH (08:47)
[2023-10-06] MEDS: GABAPENTIN 300 MG CAP PO PRN (10:07)
[2023-10-06] MEDS: ALBUTEROL NEBULIZED 2.5 MG/3 ML INHALATION SCH (11:58)
--- NOTE | 2023-10-06 12:20 | P.HPIM ---
History of Present Illness H&P Date: 10/06/23 Chief Complaint: Left sided pneumonia. HISTORY OF PRESENT ILLNESS: This is an 78 -year-old female with a previous medical history significant for hyperlipidemia, GERD with esophagitis, osteoarthritis, patient was in her usual state of health till about 2 days ago when she had a coughing episode while she was eating, according to her she probably choked on her food, and she was complaining of some indigestion at that time, patient felt better after few hours, and last night she was having fever and chills and she was coughing quite a bit of phlegm associated with increased sore throat, so she was brought into the emergency department at [facility] today because of shortness of breath, and because is not feeling good, she appeared to be quite drowsy, she denies any sick contact, she denies any diarrhea, she did have 1 episode of vomiting, she does cough up some black stuff, she did receive Pepto- Bismol from her earlier yesterday, patient was seen and evaluated in the emergency department, she was in respiratory distress, she did have lactic acidosis with a lactic acid of 5.6, she was given IV fluid resuscitation, her chest x-ray showed significant pneumonia in the left side involving the upper lobe and lower lobe, patient was started on oxygen at 4 L nasal cannula, her oxygen saturation was around 95%, patient appears to be breathing shallower, pulmonary consultation was obtained from Dr. Peng, patient did receive Zithromax as well as Zosyn in the ER, she will need to be admitted to the hospital for further evaluation recommendation she will be started nebulized treatment in the form of Albuterol 3ml nebulization 4 times every day, also she will be started on Mucinex 600 mg orally twice every day, she will have sputum culture, we will check urine Legionella antigen, mycoplasma antibody IgG and IgM, I will broaden the antibiotic to rule out any MRSA pneumonia started on vancomycin 1000 mg x 1 and pharmacy to dose its peak and trough, and as stated earlier pulmonary consultation for further evaluation and recommendation for possible ICU care, I will consult infectious disease as well Dr. Mo. REVIEW OF SYSTEMS: Constitutional: positive for fever, positive for chills, no night sweats. No weight change. positive for weakness, positive for fatigue and lethargy lethargy. No daytime sleepiness. HEENT: No headache. No blurred vision or double vision, no loss of vision. No loss of Hearing, no ringing in the ears, no dizziness. No nasal drainage or congestion. No epistaxis. No sore throat. Lungs: positive for shortness of breath, positive for coughing , positive for sputum production. No wheezing. Reports dyspnea with activity. Cardiovascular: No chest pain, no lower extremity edema. No palpitations. No paroxysmal nocturnal dyspnea. No orthopnea. No lightheadedness or dizziness. No syncopal episodes. Abdominal: Reports no abdominal pain. No nausea, vomiting. No diarrhea. No constipation. No bloody or tarry stools reports loss of appetite. Genitourinary: No dysuria, increased frequency, urgency. No urinary retention. Musculoskeletal: No myalgias. No muscle weakness, no gait dysfunction, no frequent falls. positive for back pain. No neck pain, positive for left hip pain Integumentary: No wounds, no lesions. No rash or pruritus. No unusual bruising. No change in hair or nails. Neurologic: No aphasia. No facial droop. positive for change in mentation. No head injury. No headache. No paralysis. No paresthesia. Psychiatric: No depression. No anxiety. No mood swings. Endocrine: No abnormal blood sugars. No weight change. PAST MEDICAL HISTORY: Hyperlipidemia. GERD Osteoarthritis Hiatal Hernia Moderate AI Moderate MR PAST SURGICAL HISTORY: Right total knee arthroplasty 2016 Partial hysterectomy. Tonsillectomy. Lrft Hemiarthroplasty 2022 SOCIAL HISTORY: Patient used to smoke about half a pack every day since the age of 9 and she quit at the age of 18 she denies any alcohol ingestion no drug use or abuse, she lives with her . FAMILY HISTORY: Father at age of 63 from congestive heart failure, mother at age of 85 from natural causes, patient patient had 4 brothers one at 6 month old one at age of 63 from some sort of cancer and one an extended care facility due to MS and one still living in [facility]. Patient had 6 sisters one of lung cancer and one of breast cancer with bone metastases, one from diabetes complications with coma and one with SLE patient has 2 sons one with spinal surgery and had pituitary tumor as well status post surgery and one with hypertension. Patient had 2 daughters one at the age of 58 from Covid and COPD and one lives in [place] with chronic medical illnesses, Fibromyalgia, scoliosis. PHYSICAL EXAMINATION: General: 78-year-old female laying down in bed in respiratory distress. HEENT: Head is atraumatic, normocephalic, pupils were equal round reactive to light and recommendation, extraocular muscle movement were intact, sclera nonict akira, conjunctivae were pale, mucous membranes of the mouth are somewhat dry. Neck: Supple, no JVP, normal carotid upstroke bilaterally, no lymphadenopathy. Chest: Decreased breath sounds at the bases, few rhonchi, positive for egophony to the left lung, positive for rapid shallow breathing, positive for minimal intercostal retractions. Heart: First heart sound is normal, second heart sounds normal there is DARREN 2/6 located at the left sternal border Abdomen: Soft, nontender, nondistended, positive bowel sounds. Extremities: There is no edema no calf tenderness DP +2 bilaterally Neurologic examination: Patient is stuporous, opens her eyes in response to verbal stimuli, she is moving all her extremities, but appears to have metabolic encephalopathy likely to underlying sepsis. ASSESSMENT AND PLAN: 1. Acute hypoxemic respiratory failure due to multilobar left sided pneumonia likely gram-negative pneumonia rule out MRSA pneumonia with sepsis present on admission. Start the patient on vancomycin 1 g pharmacy to dose its peak and trough, continue Zosyn 3.375 g IV piggyback every 8 hours, sputum culture, mycoplasma IgG and IgM, urine Legionella antigen, start the patient on Mucinex 6 00 mg orally twice every day, continue oxygen support, pulmonary consultation appreciated, infectious disease consultation, we will monitor the patient very closely in a telemetry unit. 2. Lactic acidosis likely due to pneumonia with severe sepsis. Continue IV fluid resuscitation, continue IV antibiotic, we will broaden the spectrum of antibiotic in the form of vancomycin and Zosyn for now, we will await infectious disease consultation continue to monitor the patient very closely repeat lactic acid in the next 6 hours. 3. Hyperlipidemia. Continue patient on atorvastatin 40 mg once every day, monitor the patient with a panel keep the patient LDL 55-70. 4. Anxiety/depressive disorder. Continue patient on Lexapro 5 mg orally once every day. 5. Vitamin D deficiency. Continue vitamin D supplement. 6. Osteoarthritis. Continue current pain management. 7. GERD with hiatal hernia. Continue patient on famotidine 20 mg IV push every 12 hours, Protonix 40 mg orally once every day. 8. Spondylosis of the lumbar spine. Continue current pain management with gabapentin 300 mg orally 3 times every day. 9. DVT prophylaxis. Start the patient on Lovenox 40 mg subcutaneous every 24 hours. 10. GI prophylaxis. Continue Protonix 40 mg orally once every day as well as famotidine 20 mg IV push every 12 hours. 11. Admit to inpatient. Estimated length of stay 2 midnights. 12. Patient is full code. Past Medical History Past Medical History: Hyperlipidemia Additional Past Medical History / Comment(s): chronic back pain, hiatal hernia, hyperlipidemia, Previous hip fracure and chronic nerve pain History of Any Multi-Drug Resistant Organisms: None Reported Past Surgical History: Hysterectomy, Orthopedic Surgery, Tonsillectomy Additional Past Surgical History / Comment(s): bilat knee sx, foot sx x2 Past Anesthesia/Blood Transfusion Reactions: No Reported Reaction Past Psychological History: Depression Smoking Status: Former smoker - Past Family History Sister(s) Family Medical History: Cancer Medications and Allergies Home Medications Medication Instructions Recorded Confirmed Type Atorvastatin [Lipitor] 40 mg PO DAILY 11/06/22 10/06/23 History Bimatoprost [Lumigan 0.01% Ophth 1 drop BOTH EYES HS 11/06/22 10/06/23 History Soln] Calcium Carbonate [Calcium] 600 mg PO HS 11/06/22 10/06/23 History Cholecalciferol [Vitamin D3 (25 25 mcg PO DAILY 11/06/22 10/06/23 History Mcg = 1000 Iu)] Cranberry 4200 Mg 4,200 mg PO DAILY 11/06/22 10/06/23 History Escitalopram [Lexapro] 5 mg PO HS 11/06/22 10/06/23 History Gabapentin 300 mg PO TID 11/06/22 10/06/23 History Ezetimibe [Zetia] 10 mg PO DAILY 10/06/23 10/06/23 History HYDROcodone/APAP 5-325MG [Ensign 1 tab PO BID PRN 10/06/23 10/06/23 History 5-325] Lansoprazole [Prevacid] 30 mg PO DAILY 10/06/23 10/06/23 History Zoledronic Acid 5Mg/100Ml Pmx 1 dose IVPB Q365D 10/06/23 10/06/23 History [Reclast] Allergies Allergy/AdvReac Type Severity Reaction Status Date / Time No Known Allergies Allergy Verified 10/06/23 11:20 Physical Exam Vitals: Vital Signs Temp Pulse Pulse Resp BP BP Pulse Ox 10/06/23 11:24 99.3 F 92 18 111/57 95 10/06/23 09:25 99 F 90 15 115/64 96 10/06/23 07:59 10/06/23 07:31 97 18 112/63 100 10/06/23 07:02 99.2 F 99 20 108/59 100 10/06/23 06:29 101.3 F H 10/06/23 06:00 126 H 24 125/63 98 10/06/23 05:21 122 H 23 128/85 100 10/06/23 05:16 10/06/23 04:58 100.2 F H 121 H 27 H 144/119 89 L FiO2 10/06/23 11:24 10/06/23 09:25 10/06/23 07:59 100 10/06/23 07:31 10/06/23 07:02 10/06/23 06:29 10/06/23 06:00 10/06/23 05:21 10/06/23 05:16 100 10/06/23 04:58 Intake and Output 10/05/23 10/06/23 10/06/23 22:59 06:59 14:59 Other: Weight 80 kg Results CBC & Chem 7: 10/06/23 05:16 10/06/23 05:16 Labs: Abnormal Lab Results - Last 24 Hours (Table) 10/06/23 10/06/23 10/06/23 Range/Units 05:16 05:16 05:16 RDW 15.6 H (11.5-15.5) % APTT 16.7 L (22.0-30.0) sec Carbon Dioxide 19 L (22-30) mmol/L BUN 18 H (7-17) mg/dL Glucose 116 H (74-99) mg/dL Plasma Lactic Acid Ayo (0.7-2.0) mmol/L AST 61 H (14-36) U/L 10/06/23 10/06/23 Range/Units 05:16 09:12 RDW (11.5-15.5) % APTT (22.0-30.0) sec Carbon Dioxide (22-30) mmol/L BUN (7-17) mg/dL Glucose (74-99) mg/dL Plasma Lactic Acid Ayo 5.2 H* 2.6 H* (0.7-2.0) mmol/L AST (14-36) U/L
--- NOTE | 2023-10-06 13:00 | P.CNPUL ---
History of Present Illness Consult date: 10/06/23 Reason for consult: dyspnea History of present illness: This is a 78-year-old female patient who got sick within the past 24 hours. According to the , the patient had an episode of choking on food material at home few days back. Over the past 24 hours, she felt weak, lethargic and she was also having increased congested cough. No history of lung disease. No previous episodes of pneumonia. No previous history of aspiration. Chest x-ray shows an extensive airspace disease in the left lower lobe. Hemodynamically stable. White cell 5.3, normal coagulation profile, BUN is 18 with a creatinine of 0.7. Initial lactic acid level was at 5.2 dropped down to 2.6. The viral screen has been negative. Troponins are negative. LFTs are normal. Electrolytes show a component of non-anion gap metabolic acidosis with a serum bicarb of 19, BUN of 18 with a creatinine of 0.77. The patient is currently on Zosyn and Zithromax. She is currently on oxygen at 5 L with a pulse ox of 95%. She is lethargic and she is able to communicate. Family is at the bedside. Review of Systems Constitutional: Reports fatigue Eyes: denies as per HPI, denies blurred vision, denies bulging eye, denies decreased vision, denies diplopia, denies discharge, denies dry eye, denies irritation, denies itching, denies pain, denies photophobia, denies loss of peripheral vision, denies loss of vision, denies tunnel vision/blind spots Ears: deny: decreased hearing, ear discharge, earache, tinnitus Ears, nose, mouth and throat: Reports as per HPI Breasts: absent: as per HPI, change in shape, gynecomastia, masses, nipple discharge, pain, skin changes, swelling Cardiovascular: Reports decreased exercise tolerance, Reports dyspnea on exertion Respiratory: Reports cough Gastrointestinal: Reports heartburn Genitourinary: Reports as per HPI Menstruation: Reports as per HPI Musculoskeletal: Reports as per HPI Musculoskeletal: absent: ankle pain, ankle stiffness, ankle swelling, as per HPI, elbow pain, elbow stiffness, elbow swelling, foot pain, foot stiffness, foot swelling, hand pain, hand stiffness, hand swelling, hip pain, hip sti ffness, hip swelling, knee pain, knee stiffness, knee swelling, shoulder pain, shoulder stiffness, shoulder swelling, wrist pain, wrist stiffness, wrist swelling Integumentary: Reports as per HPI Neurological: Reports as per HPI Psychiatric: Reports as per HPI Hematologic/Lymphatic: Reports as per HPI Allergic/Immunologic: Reports as per HPI Past Medical History Past Medical History: Hyperlipidemia Additional Past Medical History / Comment(s): chronic back pain, hiatal hernia, hyperlipidemia, Previous hip fracure and chronic nerve pain History of Any Multi-Drug Resistant Organisms: None Reported Past Surgical History: Hysterectomy, Orthopedic Surgery, Tonsillectomy Additional Past Surgical History / Comment(s): bilat knee sx, foot sx x2 Past Anesthesia/Blood Transfusion Reactions: No Reported Reaction Past Psychological History: Depression Smoking Status: Former smoker - Past Family History Sister(s) Family Medical History: Cancer Medications and Allergies Home Medications Medication Instructions Recorded Confirmed Type Atorvastatin [Lipitor] 40 mg PO DAILY 11/06/22 10/06/23 History Bimatoprost [Lumigan 0.01% Ophth 1 drop BOTH EYES HS 11/06/22 10/06/23 History Soln] Calcium Carbonate [Calcium] 600 mg PO HS 11/06/22 10/06/23 History Cholecalciferol [Vitamin D3 (25 25 mcg PO DAILY 11/06/22 10/06/23 History Mcg = 1000 Iu)] Cranberry 4200 Mg 4,200 mg PO DAILY 11/06/22 10/06/23 History Escitalopram [Lexapro] 5 mg PO HS 11/06/22 10/06/23 History Gabapentin 300 mg PO TID 11/06/22 10/06/23 History Ezetimibe [Zetia] 10 mg PO DAILY 10/06/23 10/06/23 History HYDROcodone/APAP 5-325MG [Maize 1 tab PO BID PRN 10/06/23 10/06/23 History 5-325] Lansoprazole [Prevacid] 30 mg PO DAILY 10/06/23 10/06/23 History Zoledronic Acid 5Mg/100Ml Pmx 1 dose IVPB Q365D 10/06/23 10/06/23 History [Reclast] Allergies Allergy/AdvReac Type Severity Reaction Status Date / Time No Known Allergies Allergy Verified 10/06/23 11:20 Physical Exam Vitals: Vital Signs Temp Pulse Resp BP Pulse Ox FiO2 10/06/23 09:25 99 F 90 15 115/64 96 10/06/23 07:59 100 10/06/23 07:31 97 18 112/63 100 10/06/23 07:02 99.2 F 99 20 108/59 100 10/06/23 06:29 101.3 F H 10/06/23 06:00 126 H 24 125/63 98 10/06/23 05:21 122 H 23 128/85 100 10/06/23 05:16 100 10/06/23 04:58 100.2 F H 121 H 27 H 144/119 89 L Intake and Output 10/05/23 10/06/23 10/06/23 22:59 06:59 14:59 Other: Weight 80 kg Currently on 5 L of oxygen by nasal cannula, lethargic and sleepy and arousable and communicates. Head exam was generally normal. There was no scleral icterus or corneal arcus. Mucous membranes were moist. Neck was supple and without jugular venous distension, thyromegaly, or carotid bruits. Carotids were easily palpable bilaterally. There was no adenopathy. Lung sounds reveal crackles in the left lung base Cardiac exam revealed the PMI to be normally situated and sized. The rhythm was regular and no extrasystoles were noted during several minutes of auscultation. The first and second heart sounds were normal and physiologic splitting of the second heart sound was noted. There were no murmurs, rubs, clicks, or gallops. Abdominal exam revealed normal bowel sounds. The abdomen was soft, non-tender, and without masses, organomegaly, or appreciable enlargement of the abdominal aorta. Examination of the extremities revealed easily palpable radial, femoral and pedal pulses. There was no cyanosis, clubbing or edema. Examination of the skin revealed no evidence of significant rashes, suspicious appearing nevi or other concerning lesions. Neurologically the patient has no focal neurological deficit. There is obvious diminished level of alertness. She is arousable. She communicates. Results - Laboratory Findings CBC and BMP: 10/06/23 05:16 10/06/23 05:16 PT/INR, D-dimer PT 10.8 sec (10.0-12.5) 10/06/23 05:16 INR 1.0 (<1.2) 10/06/23 05:16 Abnormal lab findings: Abnormal Labs 10/06/23 10/06/23 10/06/23 05:16 05:16 05:16 RDW 15.6 H APTT 16.7 L Carbon Dioxide 19 L BUN 18 H Glucose 116 H Plasma Lactic Acid Ayo AST 61 H 10/06/23 10/06/23 05:16 09:12 RDW APTT Carbon Dioxide BUN Glucose Plasma Lactic Acid Ayo 5.2 H* 2.6 H* AST - Diagnostic Findings Chest x-ray: image reviewed Assessment and Plan Plan: Acute pneumonia involving the left lower lobe. Consider bacterial pneumonia which could be either community-acquired or of an aspiration type. The patient did have an episode of choking on food material a few days prior to this current event. Acute hypoxic violet failure, the patient is currently on 5 L oxygen by nasal cannula Diminished level of consciousness secondary to above Hiatal hernia as noted on the CAT scan of the chest that was done few months back maintained on PPI Hyperlipidemia Degenerative arthritis Chronic neuropathic pain maintained on Neurontin Mild lactic acidosis, improving Plan Titrate oxygen flow to maintain saturation above 90% Sputum Gram stain and culture Blood cultures Continue Zosyn and Zithromax Obtain a follow-up chest x-ray in the morning Start the patient on Bentyl nebulized treatments 4 times a day IV fluids Monitor lactic acid level which is essentially improving Will continue to follow
[2023-10-06] MEDS: VANCOMYCIN 1,500 MG in SODIUM CHLORIDE 0.9% 500 ML 500 ML IVPB ONE (13:14)
[2023-10-06] MEDS: PIPERACILLIN-TAZOBACTAM 3.375 GM in SODIUM CHLORIDE 0.9% 100 ML IVPB SCH (16:24)
[2023-10-06] MEDS: GABAPENTIN 300 MG CAP PO SCH (16:25)
[2023-10-06] MEDS: VANCOMYCIN 1,000 MG in SODIUM CHLORIDE 0.9% 250 ML IVPB STA (20:02)
[2023-10-06] MEDS: ESCITALOPRAM 5 MG TAB PO SCH (21:57)
[2023-10-06] MEDS: CALCIUM CARBONATE 500 MG CHEWABLE PO SCH (21:58)
[2023-10-06] MEDS: ASPIRIN 81 MG PO SCH (21:59)
--- NOTE | 2023-10-06 22:35 | P.CONS ---
History of Present Illness - Reason for Consult Consult date: 10/06/23 Sepsis, pneumonia Requesting physician: Nate Betancourt - Chief Complaint Increasing shortness of breath and cough x few days - History of Present Illness Patient is a 78-year-old female with a past medical history significant for hyperlipidemia chronic back pain abdomen hernia presenting to the hospital for evaluation of increasing shortness of breath and cough symptoms has been going on for about a week cough has been moderate intensity and bringing up some sputum denies any hemoptysis or pleuritic chest pain did have worsening shortness of breath for the patient was brought into the hospital on arrival to the ER patient did have a fever of 101.3 degrees Fahrenheit patient was tachycardic but not hypotensive or hypoxic currently on 2 L nasal cannula ox ygen did have elevated lactic acid white count of 7.3 creatinine was 0.77 AST mildly elevated influenza RSV COVID testing was negative patient did have a chest x-ray left predominant airspace opacity correlate for pneumonia patient has been admitted to the hospital started on vancomycin and [place] infectious disease was consulted for further management of antibiotic therapy Review of Systems Positive point and negatives has been mentioned in the HPI, complete review of systems was performed and all other systems are negative Past Medical History Past Medical History: Hyperlipidemia Additional Past Medical History / Comment(s): chronic back pain, hiatal hernia, hyperlipidemia, Previous hip fracure and chronic nerve pain History of Any Multi-Drug Resistant Organisms: None Reported Past Surgical History: Hysterectomy, Orthopedic Surgery, Tonsillectomy Additional Past Surgical History / Comment(s): bilat knee sx, foot sx x2 Past Anesthesia/Blood Transfusion Reactions: No Reported Reaction Past Psychological History: Depression Smoking Status: Former smoker - Past Family History Sister(s) Family Medical History: Cancer Medications and Allergies Home Medications Medication Instructions Recorded Confirmed Type Atorvastatin [Lipitor] 40 mg PO DAILY 11/06/22 10/06/23 History Bimatoprost [Lumigan 0.01% Ophth 1 drop BOTH EYES HS 11/06/22 10/06/23 History Soln] Calcium Carbonate [Calcium] 600 mg PO HS 11/06/22 10/06/23 History Cholecalciferol [Vitamin D3 (25 25 mcg PO DAILY 11/06/22 10/06/23 History Mcg = 1000 Iu)] Cranberry 4200 Mg 4,200 mg PO DAILY 11/06/22 10/06/23 History Escitalopram [Lexapro] 5 mg PO HS 11/06/22 10/06/23 History Gabapentin 300 mg PO TID 11/06/22 10/06/23 History Ezetimibe [Zetia] 10 mg PO DAILY 10/06/23 10/06/23 History HYDROcodone/APAP 5-325MG [Penrose 1 tab PO BID PRN 10/06/23 10/06/23 History 5-325] Lansoprazole [Prevacid] 30 mg PO DAILY 10/06/23 10/06/23 History Zoledronic Acid 5Mg/100Ml Pmx 1 dose IVPB Q365D 10/06/23 10/06/23 History [Reclast] Amoxic-Pot Clav 875-125Mg 1 tab PO Q12HR 7 Days #14 tab 10/13/23 Rx [Augmentin 875-125] Apixaban [Eliquis] 5 mg PO BID #60 tab 10/13/23 Rx Aspirin 81 mg PO HS tab 10/13/23 Rx Diltiazem Oral [Cardizem*] 30 mg PO TID 30 Days #90 tab 10/13/23 Rx Furosemide [Lasix] 40 mg PO DAILY #30 tab 10/13/23 Rx Nystatin 100,000 Unit/ml Susp 500,000 unit PO QID 7 Days #473 ml 10/13/23 Rx [Mycostatin Oral Susp] Allergies Allergy/AdvReac Type Severity Reaction Status Date / Time No Known Allergies Allergy Verified 10/06/23 11:20 Physical Exam Vitals: Vital Signs Temp Pulse Pulse Resp BP BP Pulse Ox 10/06/23 11:24 99.3 F 92 18 111/57 95 10/06/23 09:25 99 F 90 15 115/64 96 10/06/23 07:59 10/06/23 07:31 97 18 112/63 100 10/06/23 07:02 99.2 F 99 20 108/59 100 10/06/23 06:29 101.3 F H 10/06/23 06:00 126 H 24 125/63 98 10/06/23 05:21 122 H 23 128/85 100 10/06/23 05:16 10/06/23 04:58 100.2 F H 121 H 27 H 144/119 89 L FiO2 10/06/23 11:24 10/06/23 09:25 10/06/23 07:59 100 10/06/23 07:31 10/06/23 07:02 10/06/23 06:29 10/06/23 06:00 10/06/23 05:21 10/06/23 05:16 100 10/06/23 04:58 Intake and Output 10/05/23 10/06/23 10/06/23 22:59 06:59 14:59 Other: Weight 80 kg GENERAL DESCRIPTION: Elderly female lying in bed, no distress. No tachypnea or accessory muscle of respiration use. HEENT: Shows Pallor , no scleral icterus. Oral mucous membrane is dry. No pharyngeal erythema or thrush NECK: Trachea central, no thyromegaly. LUNGS: Unlabored breathing. Coarse breath sounds bilaterally HEART: S1, S2, regular rate and rhythm. No loud murmur ABDOMEN: Soft, no tenderness , guarding or rigidity, no organomegaly EXTREMITIES: No edema of feet. SKIN: No rash, no masses palpable. NEUROLOGICAL: The patient is awake, alert, oriented x3, mood and affect normal. Results CBC & Chem 7: 10/13/23 05:50 10/13/23 05:50 Labs: Abnormal Lab Results - Last 24 Hours (Table) 10/06/23 10/06/23 10/06/23 Range/Units 05:16 05:16 05:16 RDW 15.6 H (11.5-15.5) % APTT 16.7 L (22.0-30.0) sec Carbon Dioxide 19 L (22-30) mmol/L BUN 18 H (7-17) mg/dL Glucose 116 H (74-99) mg/dL Plasma Lactic Acid Ayo (0.7-2.0) mmol/L AST 61 H (14-36) U/L 10/06/23 10/06/23 Range/Units 05:16 09:12 RDW (11.5-15.5) % APTT (22.0-30.0) sec Carbon Dioxide (22-30) mmol/L BUN (7-17) mg/dL Glucose (74-99) mg/dL Plasma Lactic Acid Ayo 5.2 H* 2.6 H* (0.7-2.0) mmol/L AST (14-36) U/L Assessment and Plan (1) Pneumonia Status: Acute Code(s): J18.9 - PNEUMONIA, UNSPECIFIED ORGANISM SNOMED Co de(s): 808543068 (2) Sepsis Status: Acute Code(s): A41.9 - SEPSIS, UNSPECIFIED ORGANISM SNOMED Code(s): 76942820 Plan: 1patient presented to hospital with sepsis in this patient who did have a fever tachycardia elevated lactic acid source likely pneumonia with a question of community-acquired versus resistant gram-negative/gram-positive pathogen 2-try to obtain a sputum for Gram stain culture check a CRP and a procalcitonin 3-continue with the vancomycin however switch Zosyn to cefepime to decrease risk of nephrotoxicity Will follow on a clinical condition and cultures to further adjust medication if needed Thank you for this consultation will follow this patient along with you Time with Patient: Greater than 30
[2023-10-06 23:34] LABS: Appearance,Urine Clear (Clear); Bilirubin,Urine Negative (Negative); Blood,Urine Negative (Negative); Color,Urine Light Yellow; Glucose,Urine (UA) Negative (Negative); Hyaline Casts,Urine 1 /lpf (0-2); Ketones,Urine Negative (Negative); Leukocyte Esterase,Urine Moderate (Negative); Nitrite,Urine Negative (Negative); Protein,Urine Negative (Negative); RBC,Urine 1 /hpf (0-5); Specific Gravity,Urine 1.018 (1.001-1.035); Squamous Epithelial Cell,Urine 2 /hpf (0-4); Urobilinogen,Urine <2.0 mg/dL (<2.0); WBC,Urine 14 /hpf (0-5)
[2023-10-07] MEDS: LATANOPROST 0.005% OPHTH DROPS 2.5 ML BTL BOTH EYES SCH (00:12)
[2023-10-07] MEDS: CEFEPIME 2 GM in SODIUM CHLORIDE 0.9% 100 ML IVPB SCH ×2 (00:24→09:20)
[2023-10-07 03:20] LABS: ALT 20 U/L (4-34); AST 42 U/L (14-36); African American GFR (CKD) 89 (>60 ml/min/1.73 sqM); Albumin 2.6 g/dL (3.5-5.0); Alkaline Phosphatase 43 U/L (38-126); Anion Gap 4 mmol/L; Blood Urea Nitrogen 20 mg/dL (7-17); Calcium 7.4 mg/dL (8.4-10.2); Carbon Dioxide 22 mmol/L (22-30); Chloride 108 mmol/L (98-107); Glucose 93 mg/dL (74-99); Non-African American GFR(CKD) 77 (>60 ml/min/1.73 sqM); Potassium 4.2 mmol/L (3.5-5.1); Sodium 134 mmol/L (137-145); Total Bilirubin 0.8 mg/dL (0.2-1.3); Total Protein 4.6 g/dL (6.3-8.2)
[2023-10-07 03:53] LABS: Basophils % (A) 0 %; Eosinophils % (A) 0 %; HCT 27.7 % (34.0-46.0); Hypochromasia Marked; Lymphocytes % (A) 7 %; MCH 26.8 pg (25.0-35.0); MCHC 31.7 g/dL (31.0-37.0); MCV 84.6 fL (80.0-100.0); Mean Platelet Volume 9.2; Monocytes # (A) 0.7 k/uL (0-1.0); Monocytes % (A) 5 %; Neutrophils % (A) 87 %; Platelet Count 183 k/uL (150-450); RBC 3.28 m/uL (3.80-5.40); RDW 15.8 % (11.5-15.5); WBC 14.9 k/uL (3.8-10.6)
[2023-10-07 03:56] LABS: HGB 8.8 gm/dL (11.4-16.0)
[2023-10-07] MEDS: SODIUM CHLORIDE 0.9% 1,000 ML IV SCH (06:08)
[2023-10-07] MEDS: VANCOMYCIN 1,500 MG in SODIUM CHLORIDE 0.9% 500 ML 500 ML IVPB SCH (06:08)
--- NOTE | 2023-10-07 07:45 | XR ---
EXAMINATION TYPE: XR chest 1V DATE OF EXAM: 10/07/2023 COMPARISON: 10/06/2023 INDICATION: Left lower lobe pneumonia, short of breath TECHNIQUE: Single frontal view of the chest is obtained. FINDINGS: The heart size is normal. The pulmonary vasculature is normal. There is an infiltrate in the left mid lung field. Infiltrate through the left lung is significantly improved over the interval. IMPRESSION: 1. Improving left lung infiltrate. Continued follow-up is recommended
[2023-10-07] MEDS ORDERED: PANTOPRAZOLE 40 MG TABLET PO SCH (09:00)
[2023-10-07] MEDS: PANTOPRAZOLE 40 MG/10 ML VIAL IVP SCH (09:21)
[2023-10-07] MEDS: ENOXAPARIN 40 MG/0.4 ML SYRINGE SQ SCH (09:21)
--- NOTE | 2023-10-07 15:34 | P.PN ---
Subjective Progress Note Date: 10/07/23 Principal diagnosis: Acute left lower lobe pneumonia: Community-acquired, although possible aspiration pneumonia is in the differential. This is a 78-year-old female patient who got sick within the past 24 hours. According to the , the patient had an episode of choking on food material at home few days back. Over the past 24 hours, she felt weak, lethargic and she was also having increased congested cough. No history of lung disease. No previous episodes of pneumonia. No previous history of aspiration. Chest x-ray shows an extensive airspace disease in the left lower lobe. Hemodynamically stable. White cell 5.3, normal coagulation profile, BUN is 18 with a creatinine of 0.7. Initial lactic acid level was at 5.2 dropped down to 2.6. The viral screen has been negative. Troponins are negative. LFTs are normal. Electrolytes show a component of non-anion gap metabolic acidosis with a serum bicarb of 19, BUN of 18 with a creatinine of 0.77. The patient is currently on Zosyn and Zithromax. She is currently on oxygen at 5 L with a pulse ox of 95%. She is lethargic and she is able to communicate. Family is at the bedside. Patient was evaluated today on 10/07/2023, feeling much better since admission, breathing a lot easier, chest x-ray is actually showing improvement in her left lower lobe infiltrate continues to have leukocytosis with WBC count of 14.9 hemoglobin is 8.8 electrolytes are normal renal profile is normal, clinically however the patient is feeling better, O2 saturation is 100% on 2 L nasal cannula it was 93% on room air sputum cultures and blood cultures remain negative so far for Objective - Vital Signs Vital signs: Vital Signs Temp 99.2 F 10/07/23 11:53 Pulse 96 10/07/23 15:25 Resp 20 10/07/23 15:25 BP 114/62 10/07/23 11:53 Pulse Ox 100 10/07/23 11:53 FiO2 100 10/06/23 07:59 Intake & Output 10/06/23 10/07/23 10/07/23 18:59 06:59 18:59 Intake Total 960 Output Total 0 650 Balance 0 -650 960 Weight 80 kg Intake: Oral 960 Output: Urine 0 650 Straight 650 Other: # Voids 1 # Bowel Movements 1 - Exam General: Revealed 78-year-old female in no distress Skin: Skin is warm and dry and no rashes or lesions are noted. Eye: Pupils are equal, round and reactive to light, extra-ocular movements are intact; there is normal conjunctiva bilaterally. Ears, nose, mouth and throat: There are moist mucous membranes and no oral lesions. Neck: The neck is supple, there is no tenderness or JVD. Cardiovascular: There is a regular rate and rhythm. No murmur, rub or gallop is appreciated. Respiratory: Minimal fine crackles at the left base no rhonchi no wheezes Gastrointestinal: Soft, non-distended, non-tender abdomen without masses or organomegaly noted. There is no rebound or guarding present. Bowel sounds are unremarkable. Back: There is no tenderness to palpation in the midline. There is no obvious deformity. Musculoskeletal: Normal ROM, no tenderness, There is no pedal edema. There is no calf tenderness or swelling. No cords were appreciated. Neurological: CN II-XII intact, Cranial nerves III through XII are intact. There are no obvious motor or sensory deficits. Coordination appears grossly intact. Speech is normal. Psychiatric: Cooperative, appropriate mood & affect, normal judgment. - Labs CBC & Chem 7: 10/07/23 02:32 10/07/23 02:32 Labs: Abnormal Lab Results - Last 24 Hours (Table) 10/06/23 10/06/23 10/06/23 Range/Units 11:47 17:28 20:14 WBC (3.8-10.6) k/uL RBC (3.80-5.40) m/uL Hgb (11.4-16.0) gm/dL Hct (34.0-46.0) % RDW (11.5-15.5) % Neutrophils # (1.3-7.7) k/uL Sodium (137-145) mmol/L Chloride (98-107) mmol/L BUN (7-17) mg/dL Plasma Lactic Acid Ayo 3.4 H* 3.4 H* (0.7-2.0) mmol/L Calcium (8.4-10.2) mg/dL AST (14-36) U/L Total Protein (6.3-8.2) g/dL Albumin (3.5-5.0) g/dL Procalcitonin 22.70 H (0.02-0.09) ng/mL Ur Leukocyte Esterase (Negative) Urine WBC (0-5) /hpf Urine WBC Clumps (None) /hpf 10/06/23 10/06/23 10/07/23 Range/Units 22:45 23:00 02:32 WBC 14.9 H (3.8-10.6) k/uL RBC 3.28 L (3.80-5.40) m/uL Hgb 8.8 L D (11.4-16.0) gm/dL Hct 27.7 L (34.0-46.0) % RDW 15.8 H (11.5-15.5) % Neutrophils # 13.0 H (1.3-7.7) k/uL Sodium (137-145) mmol/L Chloride (98-107) mmol/L BUN (7-17) mg/dL Plasma Lactic Acid Ayo 2.1 H* (0.7-2.0) mmol/L Calcium (8.4-10.2) mg/dL AST (14-36) U/L Total Protein (6.3-8.2) g/dL Albumin (3.5-5.0) g/dL Procalcitonin (0.02-0.09) ng/mL Ur Leukocyte Esterase Moderate H (Negative) Urine WBC 14 H (0-5) /hpf Urine WBC Clumps Rare H (None) /hpf 10/07/23 Range/Units 02:32 WBC (3.8-10.6) k/uL RBC (3.80-5.40) m/uL Hgb (11.4-16.0) gm/dL Hct (34.0-46.0) % RDW (11.5-15.5) % Neutrophils # (1.3-7.7) k/uL Sodium 134 L (137-145) mmol/L Chloride 108 H (98-107) mmol/L BUN 20 H (7-17) mg/dL Plasma Lactic Acid Ayo (0.7-2.0) mmol/L Calcium 7.4 L (8.4-10.2) mg/dL AST 42 H (14-36) U/L Total Protein 4.6 L (6.3-8.2) g/dL Albumin 2.6 L (3.5-5.0) g/dL Procalcitonin (0.02-0.09) ng/mL Ur Leukocyte Esterase (Negative) Urine WBC (0-5) /hpf Urine WBC Clumps (None) /hpf Microbiology - Last 24 Hours (Table) 10/06/23 05:16 Blood Culture - Preliminary Blood 10/06/23 05:01 Blood Culture - Preliminary Blood 10/06/23 18:49 Gram Stain - Preliminary Sputum Assessment and Plan Assessment: Impression: Acute left lower lobe pneumonia, possible community-acquired pneumonia although based on the clinical history I am suspecting that we may be dealing with an episode of aspiration pneumonia. Acute hypoxic respiratory failure secondary to above History of hiatal hernia Dyslipidemia Degenerative joint disease Chronic neuropathic pain Recommendation: Continue antibiotics, patient is receiving cefepime and Zithromax she did receive Zosyn on admission, still receiving vancomycin, antibiotics being addressed by ID on the case. Continue bronchodilators continue GI and DVT prophylaxis Will continue to follow repeat chest x-ray in the next 48 hours. Time with Patient: Less than 30
[2023-10-07 16:42] LABS: ABG Base Excess -2.2 mmol/L; ABG HCO3 21 mmol/L (21-25); ABG PCO2 30 mmHg (35-45); ABG PH 7.46 (7.35-7.45); ABG TCO2 22 mmol/L (19-24); Allen Test Performed? Yes
[2023-10-07 16:50] LABS: ABG PO2 43 mmHg (83-108)
--- NOTE | 2023-10-07 17:21 | P.PN ---
Subjective Progress Note Date: 10/07/23 HISTORY OF PRESENT ILLNESS: This is an 78 -year-old female with a previous medical history sign ificant for hyperlipidemia, GERD with esophagitis, osteoarthritis, patient was in her usual state of health till about 2 days ago when she had a coughing episode while she was eating, according to her she probably choked on her food, and she was complaining of some indigestion at that time, patient felt better after few hours, and last night she was having fever and chills and she was coughing quite a bit of phlegm associated with increased sore throat, so she was brought into the emergency department at [facility] today because of shortness of breath, and because is not feeling good, she appeared to be quite drowsy, she denies any sick contact, she denies any diarrhea, she did have 1 episode of vomiting, she does cough up some black stuff, she did receive Pepto- Bismol from her earlier yesterday, patient was seen and evaluated in the emergency department, she was in respiratory distress, she did have lactic acidosis with a lactic acid of 5.6, she was given IV fluid resuscitation, her chest x-ray showed significant pneumonia in the left side involving the upper lobe and lower lobe, patient was started on oxygen at 4 L nasal cannula, her oxygen saturation was around 95%, patient appears to be breathing shallower, pulmonary consultation was obtained from Dr. Peng, patient did receive Zithromax as well as Zosyn in the ER, she will need to be admitted to the hospital for further evaluation recommendation she will be started nebulized treatment in the form of Albuterol 3ml nebulization 4 times every day, also she will be started on Mucinex 600 mg orally twice every day, she will have sputum culture, we will check urine Legionella antigen, mycoplasma antibody IgG and IgM, I will broaden the antibiotic to rule out any MRSA pneumonia started on vancomycin 1000 mg x 1 and pharmacy to dose its peak and trough, and as stated earlier pulmonary consultation for further evaluation and recommendation for possible ICU care, I will consult infectious disease as well Dr. Mo. 10/06: Patient continues to be somewhat short of breath, she continues to be on o xygen support, she appears to be pale, she appears to be confused, she appears in severe sepsis, I have asked the nursing staff to order blood gases, and lactic acid, she will be transferred to the intensive care unit for further evaluation and recommendation, continue IV fluid resuscitation, continue patient on IV antibiotic in the form of vancomycin as well as cefepime per infectious disease recommendation, we will continue to monitor the patient very closely, I believe the patient will end up on the ventilator due to her altered level of consciousness. REVIEW OF SYSTEMS: Constitutional: positive for fever, positive for chills, no night sweats. No weight change. positive for weakness, positive for fatigue and lethargy lethargy. No daytime sleepiness. HEENT: No headache. No blurred vision or double vision, no loss of vision. No loss of Hearing, no ringing in the ears, no dizziness. No nasal drainage or congestion. No epistaxis. No sore throat. Lungs: positive for shortness of breath, positive for coughing , positive for sputum production. No wheezing. Reports dyspnea with activity. Cardiovascular: No chest pain, no lower extremity edema. No palpitations. No paroxysmal nocturnal dyspnea. No orthopnea. No lightheadedness or dizziness. No syncopal episodes. Abdominal: Reports no abdominal pain. No nausea, vomiting. No diarrhea. No constipation. No bloody or tarry stools reports loss of appetite. Genitourinary: No dysuria, increased frequency, urgency. No urinary retention. Musculoskeletal: No myalgias. No muscle weakness, no gait dysfunction, no dale quent falls. positive for back pain. No neck pain, positive for left hip pain Integumentary: No wounds, no lesions. No rash or pruritus. No unusual bruising. No change in hair or nails. Neurologic: No aphasia. No facial droop. positive for change in mentation. No head injury. No headache. No paralysis. No paresthesia. Psychiatric: No depression. No anxiety. No mood swings. Endocrine: No abnormal blood sugars. No weight change. PHYSICAL EXAMINATION: General: 78-year-old female laying down in bed in respiratory distress. HEENT: Head is atraumatic, normocephalic, pupils were equal round reactive to light and recommendation, extraocular muscle movement were intact, sclera nonicteric, conjunctivae were pale, mucous membranes of the mouth are somewhat dry. Neck: Supple, no JVP, normal carotid upstroke bilaterally, no lymphadenopathy. Chest: Decreased breath sounds at the bases, few rhonchi, positive for egophony to the left lung, positive for rapid shallow breathing, positive for minimal intercostal retractions. Heart: First heart sound is normal, second heart sounds normal there is DARREN 2/6 located at the left sternal border Abdomen: Soft, nontender, nondistended, positive bowel sounds. Extremities: There is no edema no calf tenderness DP +2 bilaterally Neurologic examination: Patient is stuporous, opens her eyes in response to verbal stimuli, she is moving all her extremities, but appears to have metabolic encephalopathy likely to underlying sepsis. ASSESSMENT AND PLAN: 1. Acute hypoxemic respiratory failure due to multilobar left sided pneumonia likely gram-negative pneumonia rule out MRSA pneumonia with severe sepsis present on admission. Continue vancomycin, continue cefepime 2 g IV piggyback every 12 hours, sputum culture, await for the result of the blood culture, await the further results of the mycoplasma IgG and IgM, await the result of Legionella antigen, I believe the patient may have a MRSA pneumonia, blood gases will be obtained, lactic acid will be checked again, transfer the patient in the ICU pulmonary will be notified. 2. Lactic acidosis likely due to pneumonia with severe sepsis. Continue IV fluid resuscitation, continue IV antibiotic, we will broaden the spectrum of antibiotic in the form of vancomycin and cefepime for now, we will await infectious disease consultation continue to monitor the patient very closely repeat lactic acid in the next 6 hours. 3. Metabolic encephalopathy due to severe sepsis due to underlying pneumonia. Continue IV fluid resuscitation, continue IV antibiotic, continue to monitor the patient very closely, blood gases will be obtained, patient will be transferred to the intensive care unit. 4. Hyperlipidemia. Continue patient on atorvastatin 40 mg once every day, monitor the patient with a panel keep the patient LDL 55-70. 5. Anxiety/depressive disorder. Continue patient on Lexapro 5 mg orally once every day. 6. Vitamin D deficiency. Continue vitamin D supplement. 7. Osteoarthritis. Continue current pain management. 8. GERD with hiatal hernia. Continue patient on famotidine 20 mg IV push every 12 hours, Protonix 40 mg orally once every day. 9. Spondylosis of the lumbar spine. Discontinue gabapentin due to metabolic encephalopathy. 10. DVT prophylaxis. Continue Lovenox 40 mg subcutaneous every 24 hours. 11. GI prophylaxis. Continue Protonix 40 mg IV push every 12 hours. 12. Transfer the patient in the ICU. 13. Guarded prognosis. Objective - Vital Signs Vital signs: Vital Signs Temp 99.2 F 10/07/23 16:25 Pulse 95 10/07/23 16:25 Resp 22 10/07/23 16:25 BP 118/64 10/07/23 16:25 Pulse Ox 91 L 10/07/23 16:25 FiO2 100 10/06/23 07:59 Intake & Output 10/06/23 10/07/23 10/07/23 18:59 06:59 18:59 Intake Total 960 Output Total 0 650 500 Balance 0 -650 460 Weight 80 kg Intake: Oral 960 Output: Urine 0 650 500 Straight 650 Other: Voiding Method Toilet Bedpan # Voids 1 # Bowel Movements 1 - Labs CBC & Chem 7: 10/07/23 02:32 10/07/23 02:32 Labs: Abnormal Lab Results - Last 24 Hours (Table) 10/06/23 10/06/23 10/06/23 Range/Units 11:47 17:28 20:14 WBC (3.8-10.6) k/uL RBC (3.80-5.40) m/uL Hgb (11.4-16.0) gm/dL Hct (34.0-46.0) % RDW (11.5-15.5) % Neutrophils # (1.3-7.7) k/uL ABG pH (7.35-7.45) ABG pCO2 (35-45) mmHg ABG pO2 (83-108) mmHg ABG O2 Saturation (94-97) % Sodium (137-145) mmol/L Chloride (98-107) mmol/L BUN (7-17) mg/dL Plasma Lactic Acid Ayo 3.4 H* 3.4 H* (0.7-2.0) mmol/L Calcium (8.4-10.2) mg/dL AST (14-36) U/L Total Protein (6.3-8.2) g/dL Albumin (3.5-5.0) g/dL Procalcitonin 22.70 H (0.02-0.09) ng/mL Ur Leukocyte Esterase (Negative) Urine WBC (0-5) /hpf Urine WBC Clumps (None) /hpf 10/06/23 10/06/23 10/07/23 Range/Units 22:45 23:00 02:32 WBC 14.9 H (3.8-10.6) k/uL RBC 3.28 L (3.80-5.40) m/uL Hgb 8.8 L D (11.4-16.0) gm/dL Hct 27.7 L (34.0-46.0) % RDW 15.8 H (11.5-15.5) % Neutrophils # 13.0 H (1.3-7.7) k/uL ABG pH (7.35-7.45) ABG pCO2 (35-45) mmHg ABG pO2 (83-108) mmHg ABG O2 Saturation (94-97) % Sodium (137-145) mmol/L Chloride (98-107) mmol/L BUN (7-17) mg/dL Plasma Lactic Acid Ayo 2.1 H* (0.7-2.0) mmol/L Calcium (8.4-10.2) mg/dL AST (14-36) U/L Total Protein (6.3-8.2) g/dL Albumin (3.5-5.0) g/dL Procalcitonin (0.02-0.09) ng/mL Ur Leukocyte Esterase Moderate H (Negative) Urine WBC 14 H (0-5) /hpf Urine WBC Clumps Rare H (None) /hpf 10/07/23 10/07/23 Range/Units 02:32 16:36 WBC (3.8-10.6) k/uL RBC (3.80-5.40) m/uL Hgb (11.4-16.0) gm/dL Hct (34.0-46.0) % RDW (11.5-15.5) % Neutrophils # (1.3-7.7) k/uL ABG pH 7.46 H (7.35-7.45) ABG pCO2 30 L (35-45) mmHg ABG pO2 43 L* (83-108) mmHg ABG O2 Saturation 83.0 L (94-97) % Sodium 134 L (137-145) mmol/L Chloride 108 H (98-107) mmol/L BUN 20 H (7-17) mg/dL Plasma Lactic Acid Ayo (0.7-2.0) mmol/L Calcium 7.4 L (8.4-10.2) mg/dL AST 42 H (14-36) U/L Total Protein 4.6 L (6.3-8.2) g/dL Albumin 2.6 L (3.5-5.0) g/dL Procalcitonin (0.02-0.09) ng/mL Ur Leukocyte Esterase (Negative) Urine WBC (0-5) /hpf Urine WBC Clumps (None) /hpf Microbiology - Last 24 Hours (Table) 10/06/23 05:16 Blood Culture - Preliminary Blood 10/06/23 05:01 Blood Culture - Preliminary Blood 10/06/23 18:49 Gram Stain - Preliminary Sputum
[2023-10-07 17:22] LABS: Glucose,Whole Blood 136 mg/dL (70-110)
[2023-10-07] MEDS: ACETAMINOPHEN TAB 325 MG TAB PO PRN (17:42)
[2023-10-08] MEDS: DILTIAZEM 125 MG in SODIUM CHLORIDE 0.9% 100 ML IV SCH (05:13)
[2023-10-08 06:09] LABS: Anisocytosis Slight; Basophils % (A) 0 %; Eosinophils % (A) 0 %; HCT 28.8 % (34.0-46.0); Hypochromasia Moderate; Lymphocytes # (A) 0.7 k/uL (1.0-4.8); Lymphocytes % (A) 5 %; MCH 26.1 pg (25.0-35.0); MCHC 31.1 g/dL (31.0-37.0); MCV 83.8 fL (80.0-100.0); Mean Platelet Volume 9.1; Monocytes # (A) 0.7 k/uL (0-1.0); Monocytes % (A) 5 %; Neutrophils # (A) 12.3 k/uL (1.3-7.7); Neutrophils % (A) 89 %; Platelet Count 131 k/uL (150-450); RBC 3.43 m/uL (3.80-5.40); WBC 13.8 k/uL (3.8-10.6)
[2023-10-08 06:18] LABS: ALT 21 U/L (4-34); AST 40 U/L (14-36); African American GFR (CKD) >90 (>60 ml/min/1.73 sqM); Albumin 2.7 g/dL (3.5-5.0); Alkaline Phosphatase 63 U/L (38-126); Anion Gap 6 mmol/L; Blood Urea Nitrogen 15 mg/dL (7-17); Calcium 7.5 mg/dL (8.4-10.2); Carbon Dioxide 17 mmol/L (22-30); Chloride 112 mmol/L (98-107); Glucose 97 mg/dL (74-99); Non-African American GFR(CKD) >90 (>60 ml/min/1.73 sqM); Potassium 3.6 mmol/L (3.5-5.1); Sodium 135 mmol/L (137-145); Total Protein 4.7 g/dL (6.3-8.2)
[2023-10-08] MEDS ORDERED: Potassium Replacement Protocol 1 EACH MISC MISCELLANE PRN ×2 (06:22→06:23)
[2023-10-08] MEDS: POTASSIUM CHLORIDE ER 20 MEQ TAB.ER PO SCH (06:41)
--- NOTE | 2023-10-08 07:33 | XR ---
EXAMINATION TYPE: XR chest 1V portable DATE OF EXAM: 10/08/2023 COMPARISON: 10/07/2023 INDICATION: Left lower lobe pneumonia TECHNIQUE: Single frontal view of the chest is obtained. FINDINGS: The heart size is normal. The pulmonary vasculature is indistinct. There is worsening of the left mid and lower lung field infiltrate. IMPRESSION: 1. Worsening infiltrates in the left mid and lower lung field can't be compatible with pneumonia. Con tinued follow-up is recommended
--- NOTE | 2023-10-08 07:42 | P.CRDCN ---
History of Present Illness Consult date: 10/08/23 History of present illness: History of Present Illness: The patient is an 78-year-old female with no prior documented history of CAD who presented with symptoms of cough, aspiration pneumonia and weakness. She was transferred to the ICU and had atrial fibrillation with episodes of rapid ventricular response. She is not aware of the arrhythmia. She has no prior cardiac history. She has fractured her hip about a year ago but prior to that has been active without any symptoms of chest discomfort or dyspnea. She denies any history of dizziness, palpitations or syncope. Her breathing is better. She denies any significant peripheral edema, no PND or orthopnea. She was started on IV Cardizem. On admission she was lethargic but appears to be awake and alert today with no complaints. She is a non-smoker, she has a history of hyperlipidemia. Medications: At home she is on Zetia 10 mg daily, Lipitor 40 mg daily, calcium carbonate, Prevacid, Lexapro, gabapentin Review of Systems: Respiratory: No history of asthma, bronchitis or recent cough. GI: No nausea or vomiting . No history of peptic ulcer disease. No recent GI bleed. : No hematuria or dysuria. Nervous System: No stroke or seizure. Physical Examination: 78-year-old female, alert oriented no apparent distress,Blood pressure 118/80, Heart rate 90 Head: Normocephalic. Eyes: Sclerae nonicteric. Neck: Good carotid upstroke, no bruit, no jugular venous distention. Lungs: Few crackles at the base on the left side Heart: Irregular rate and rhythm, S1-S2, no S3, no rub. Systolic ejection murmur at the base. Abdomen: Soft nontender, positive bowel sounds no organomegaly. Extremities: No edema, intact distal pulses. Labs: WBC 13.8, hemoglobin 9.0, platelets 131. Potassium 3.6, BUN 15, creatinine 1.49. Plasma lactic acid 1.7. On admission it was 5.2. Her troponin less than 0.012 on admission and NT proBNP of 60. Procalcitonin 22.7. Chest x-ray with infiltrate in the left mid and lower lung EKG: On admission sinus tachycardia with left axis deviation and poor R wave progression Impression: 1. Aspiration pneumonia, hemodynamically stable 2. Atrial fibrillation, new onset with rapid ventricle response. [id number] score 3 3. History of hyperlipidemia Plan: 1. Change to oral Cardizem 2. Initiate anticoagulation 3. Obtain an echocardiogram with Doppler 4. Check thyroid function test 5. Her atrial fibrillation could be related to her pneumonia, if she persists in atrial fibrillation the option of rhythm control can be addressed after stabilization. 6. Depending on her progress further recommendations will be made. Thank you for this consult we will follow with you. Past Medical History Past Medical History: Hyperlipidemia Additional Past Medical History / Comment(s): chronic back pain, hiatal hernia, hyperlipidemia, Previous hip fracure and chronic nerve pain History of Any Multi-Drug Resistant Organisms: None Reported Past Surgical History: Hysterectomy, Orthopedic Surgery, Tonsillectomy Additional Past Surgical History / Comment(s): bilat knee sx, foot sx x2 Past Anesthesia/Blood Transfusion Reactions: No Reported Reaction Past Psychological History: Depression Smoking Status: Former smoker - Past Family History Sister(s) Family Medical History: Cancer Medications and Allergies Home Medications Medication Instructions Recorded Confirmed Type Atorvastatin [Lipitor] 40 mg PO DAILY 11/06/22 10/06/23 History Bimatoprost [Lumigan 0.01% Ophth 1 drop BOTH EYES HS 11/06/22 10/06/23 History Soln] Calcium Carbonate [Calcium] 600 mg PO HS 11/06/22 10/06/23 History Cholecalciferol [Vitamin D3 (25 25 mcg PO DAILY 11/06/22 10/06/23 History Mcg = 1000 Iu)] Cranberry 4200 Mg 4,200 mg PO DAILY 11/06/22 10/06/23 History Escitalopram [Lexapro] 5 mg PO HS 11/06/22 10/06/23 History Gabapentin 300 mg PO TID 11/06/22 10/06/23 History Ezetimibe [Zetia] 10 mg PO DAILY 10/06/23 10/06/23 History HYDROcodone/APAP 5-325MG [[place] 1 tab PO BID PRN 10/06/23 10/06/23 History 5-325] Lansoprazole [Prevacid] 30 mg PO DAILY 10/06/23 10/06/23 History Zoledronic Acid 5Mg/100Ml Pmx 1 dose IVPB Q365D 10/06/23 10/06/23 History [Reclast] Allergies Allergy/AdvReac Type Severity Reaction Status Date / Time No Known Allergies Allergy Verified 10/06/23 11:20 Physical Exam Vitals: Vital Signs Temp Pulse Pulse Resp BP BP Pulse Ox 10/08/23 07:00 96 26 H 118/80 95 10/08/23 06:00 104 H 27 H 110/78 95 10/08/23 05:00 118 H 32 H 135/71 96 10/08/23 04:00 81 28 H 133/69 97 10/08/23 03:00 24 132/62 10/08/23 02:00 75 15 124/63 96 10/08/23 01:00 71 23 118/58 97 10/08/23 00:02 70 13 118/58 97 10/08/23 00:00 79 79 16 117/59 96 10/07/23 23:30 69 25 H 117/59 97 10/07/23 23:00 98.3 F 73 23 115/52 98 10/07/23 22:30 85 31 H 115/52 95 10/07/23 22:00 78 22 122/54 10/07/23 21:30 90 19 122/54 96 10/07/23 21:00 80 26 H 116/55 10/07/23 20:30 98.6 F 81 18 111/61 10/07/23 20:25 76 18 10/07/23 20:19 78 18 10/07/23 20:00 78 79 19 116/72 10/07/23 19:30 98.0 F 78 16 116/70 10/07/23 19:00 81 11 L 120/54 10/07/23 18:30 86 23 125/52 98 10/07/23 18:00 92 20 119/55 99 10/07/23 17:30 90 27 H 126/57 98 10/07/23 17:19 101.2 F H 96 28 H 10/07/23 16:25 99.2 F 95 22 118/64 91 L 10/07/23 15:36 99 18 10/07/23 15:25 96 20 10/07/23 14:00 95 22 10/07/23 11:53 99.2 F 100 16 114/62 100 10/07/23 11:35 84 18 10/07/23 11:26 88 18 10/07/23 08:00 100.3 F H 95 22 112/53 93 L 10/07/23 07:57 88 18 10/07/23 07:45 84 18 Intake and Output 10/07/23 10/08/23 10/08/23 22:59 06:59 14:59 Intake Total 1000 1050 100 Output Total 750 600 1 Balance 250 450 99 Intake: IV 500 800 100 0.9 500 800 100 Intake, IV Titration 500 Amount Vancomycin 1,500 mg In 500 Sodium Chloride 0.9% 500 ml 500 ml @ 167 mls/hr IVPB Q16H [facility] Rx#: [id number] Oral 250 Output: Urine 750 600 1 Other: Voiding Method External Catheter External Catheter # Bowel Movements 1 Weight 84.005 kg Results 10/08/23 05:33 10/08/23 05:33 Cardiac Enzymes 10/08/23 Range/Units 05:33 AST 40 H (14-36) U/L CBC 10/08/23 Range/Units 05:33 WBC 13.8 H (3.8-10.6) k/uL RBC 3.43 L (3.80-5.40) m/uL Hgb 9.0 L (11.4-16.0) gm/dL Hct 28.8 L (34.0-46.0) % Plt Count 131 L (150-450) k/uL Comprehensive Metabolic Panel 10/08/23 Range/Units 05:33 Sodium 135 L (137-145) mmol/L Potassium 3.6 (3.5-5.1) mmol/L Chloride 112 H (98-107) mmol/L Carbon Dioxide 17 L (22-30) mmol/L BUN 15 (7-17) mg/dL Creatinine 0.49 L (0.52-1.04) mg/dL Glucose 97 (74-99) mg/dL Calcium 7.5 L (8.4-10.2) mg/dL AST 40 H (14-36) U/L ALT 21 (4-34) U/L Alkaline Phosphatase 63 (38-126) U/L Total Protein 4.7 L (6.3-8.2) g/dL Albumin 2.7 L (3.5-5.0) g/dL Current Medications Generic Name Dose Route Start Last Admin Trade Name Freq PRN Reason Stop Dose Admin Acetaminophen 650 mg 10/07/23 17:38 10/08/23 05:15 Acetaminophen Tab 325 Mg Tab PO 650 mg Q4HR PRN Administration Fever and/ or Pain Albuterol Sulfate 2.5 mg 10/06/23 12:00 10/07/23 20:19 Albuterol Nebulized 2.5 Mg/3 Ml INHALATION 2.5 mg RT-QID [facility] Administration Aspirin 81 mg 10/06/23 21:00 10/07/23 20:38 Aspirin 81 Mg PO 81 mg HS D[facility] Administration Atorvastatin Calcium 40 mg 10/06/23 09:00 10/07/23 09:21 Atorvastatin 40 Mg Tab PO 40 mg DAILY [facility] Administration Calcium Carbonate/Glycine 500 mg 10/06/23 21:00 10/06/23 22:00 Calcium Carbonate 500 Mg Chewable PO 500 mg HS D[facility] Administration Cholecalciferol 25 mcg 10/06/23 09:00 10/07/23 09:21 Cholecalciferol 25 Mcg (1000 Iu) Tablet PO 25 mcg DAILY [facility] Administration Docusate Sodium 100 mg 10/06/23 09:00 10/07/23 20:38 Docusate 100 Mg Cap PO 100 mg BID D[facility] Administration Enoxaparin Sodium 40 mg 10/07/23 09:00 10/07/23 09:21 Enoxaparin 40 Mg/0.4 Ml Syringe SQ 40 mg DAILY D[facility] Administration Escitalopram Oxalate 5 mg 10/06/23 21:00 10/07/23 20:39 Escitalopram 5 Mg Tab PO 5 mg HS DULCE Administration Famotidine 20 mg 10/06/23 09:00 10/07/23 20:40 Famotidine 20 Mg/2 Ml Vial IV 20 mg BID DULCE Administration Vancomycin HCl 1,500 mg/ 500 mls @ 167 mls/hr 10/07/23 05:00 10/07/23 20:38 Sodium Chloride IVPB 167 mls/hr Q16H [facility] Administration Sodium Chloride 1,000 mls @ 100 mls/hr 10/07/23 05:45 10/08/23 06:43 Saline 0.9% IV 100 mls/hr .Q10H [facility] Administration Cefepime HCl 2 gm/ Sodium 100 mls @ 25 mls/hr 10/07/23 12:00 10/07/23 23:52 Chloride IVPB 25 mls/hr Q12H [facility] Administration Protocol Diltiazem HCl 125 mg/ Sodium 125 mls @ 0 mls/hr 10/08/23 05:00 10/08/23 05:13 Chloride IV 5 mls/hr .Q0M DULCE 5 mls/hr Administration Protocol Per Protocol Latanoprost 1 drops 10/06/23 21:00 10/07/23 20:38 Latanoprost 0.005% Ophth Drops 2.5 Ml Btl BOTH EYES 1 drops HS DULCE Administration Miscellaneous Information 0 each 10/08/23 12:00 Vancomycin Trough Due 1 Each Misc MISCELLANE 10/08/23 12:01 DIRECTED ONE Miscellaneous Information 1 each 10/08/23 06:22 Potassium Replacement Protocol 1 Each Misc MISCELLANE DAILY PRN Per Protocol Protocol Miscellaneous Information 1 each 10/08/23 06:23 Potassium Replacement Protocol 1 Each Misc MISCELLANE DAILY PRN Per Protocol Protocol Pantoprazole Sodium 40 mg 10/07/23 09:00 10/07/23 20:47 Pantoprazole 40 Mg/10 Ml Vial IVP 40 mg BID DULCE Administration Intake and Output 10/07/23 10/08/23 10/08/23 22:59 06:59 14:59 Intake Total 1000 1050 100 Output Total 750 600 1 Balance 250 450 99 Intake: IV 500 800 100 0.9 500 800 100 Intake, IV Titration 500 Amount Vancomycin 1,500 mg In 500 Sodium Chloride 0.9% 500 ml 500 ml @ 167 mls/hr IVPB Q16H [facility] Rx#: [id number] Oral 250 Output: Urine 750 600 1 Other: Voiding Method External Catheter External Catheter # Bowel Movements 1 Weight 84.005 kg 10/08/23 05:33 10/08/23 05:33
--- NOTE | 2023-10-08 09:07 | P.PN ---
Subjective Progress Note Date: 10/07/23 Principal diagnosis: Reason for follow-up is pneumonia and Patient is a 78-year-old female with a past medical history significant for hyperlipidemia chronic back pain abdomen hernia presenting to the hospital for evaluation of increasing shortness of breath and cough patient has been diagnosed with sepsis secondary pneumonia and admitted to hospital. On today's evaluation that is 10/07/2023, the patient did have improvement her fever pattern did have a low-grade fever 100.3 F this morning patient is currently on a 2 L nasal cannula oxygen patient complains of some shortness of breath but no worsening cough or sputum production no nausea vomiting abdominal pain or diarrhea. Patient white count is up to 14.9 today creatinine is 0.74, procalcitonin is 22.70 blood and sputum cultures currently pending Objective - Vital Signs Vital signs: Vital Signs Temp 99.2 F 10/07/23 11:53 Pulse 100 10/07/23 11:53 Resp 16 10/07/23 11:53 BP 114/62 10/07/23 11:53 Pulse Ox 100 10/07/23 11:53 FiO2 100 10/06/23 07:59 Intake & Output 10/06/23 10/07/23 10/07/23 18:59 06:59 18:59 Intake Total 780 Output Total 0 650 Balance 0 -650 780 Weight 80 kg Intake: Oral 780 Output: Urine 0 650 Straight 650 Other: # Voids 1 # Bowel Movements 1 - Exam GENERAL DESCRIPTION: An elderly female lying in bed in no distress RESPIRATORY SYSTEM: Unlabored breathing , decreased breath sounds at bases HEART: S1 S2 regular rate and rhythm , ABDOMEN: Soft , no tenderness EXTREMITIES: No edema feet - Labs CBC & Chem 7: 10/08/23 05:33 10/08/23 05:33 Labs: Abnormal Lab Results - Last 24 Hours (Table) 10/06/23 10/06/23 10/06/23 Range/Units 11:47 14:31 17:28 WBC (3.8-10.6) k/uL RBC (3.80-5.40) m/uL Hgb (11.4-16.0) gm/dL Hct (34.0-46.0) % RDW (11.5-15.5) % Neutrophils # (1.3-7.7) k/uL Sodium (137-145) mmol/L Chloride (98-107) mmol/L BUN (7-17) mg/dL Plasma Lactic Acid Ayo 3.0 H* 3.4 H* (0.7-2.0) mmol/L Calcium (8.4-10.2) mg/dL AST (14-36) U/L Total Protein (6.3-8.2) g/dL Albumin (3.5-5.0) g/dL Procalcitonin 22.70 H (0.02-0.09) ng/mL Ur Leukocyte Esterase (Negative) Urine WBC (0-5) /hpf Urine WBC Clumps (None) /hpf 10/06/23 10/06/23 10/06/23 Range/Units 20:14 22:45 23:00 WBC (3.8-10.6) k/uL RBC (3.80-5.40) m/uL Hgb (11.4-16.0) gm/dL Hct (34.0-46.0) % RDW (11.5-15.5) % Neutrophils # (1.3-7.7) k/uL Sodium (137-145) mmol/L Chloride (98-107) mmol/L BUN (7-17) mg/dL Plasma Lactic Acid Ayo 3.4 H* 2.1 H* (0.7-2.0) mmol/L Calcium (8.4-10.2) mg/dL AST (14-36) U/L Total Protein (6.3-8.2) g/dL Albumin (3.5-5.0) g/dL Procalcitonin (0.02-0.09) ng/mL Ur Leukocyte Esterase Moderate H (Negative) Urine WBC 14 H (0-5) /hpf Urine WBC Clumps Rare H (None) /hpf 10/07/23 10/07/23 Range/Units 02:32 02:32 WBC 14.9 H (3.8-10.6) k/uL RBC 3.28 L (3.80-5.40) m/uL Hgb 8.8 L D (11.4-16.0) gm/dL Hct 27.7 L (34.0-46.0) % RDW 15.8 H (11.5-15.5) % Neutrophils # 13.0 H (1.3-7.7) k/uL Sodium 134 L (137-145) mmol/L Chloride 108 H (98-107) mmol/L BUN 20 H (7-17) mg/dL Plasma Lactic Acid Ayo (0.7-2.0) mmol/L Calcium 7.4 L (8.4-10.2) mg/dL AST 42 H (14-36) U/L Total Protein 4.6 L (6.3-8.2) g/dL Albumin 2.6 L (3.5-5.0) g/dL Procalcitonin (0.02-0.09) ng/mL Ur Leukocyte Esterase (Negative) Urine WBC (0-5) /hpf Urine WBC Clumps (None) /hpf Microbiology - Last 24 Hours (Table) 10/06/23 18:49 Gram Stain - Preliminary Sputum Assessment and Plan (1) Leukocytosis Current Visit: Yes Status: Acute Code(s): D72.829 - ELEVATED WHITE BLOOD CELL COUNT, UNSPECIFIED SNOMED Code(s): 923567312 (2) Pneumonia Current Visit: Yes Status: Acute Code(s): J18.9 - PNEUMONIA, UNSPECIFIED ORGANISM SNOMED Code(s): 356361953 Plan: 1patient presented to hospital with sepsis in this patient who did have a fever tachycardia elevated lactic acid source likely pneumonia with a question of community-acquired versus resistant gram-negative/gram-positive pathogen 2-did have elevated procalcitonin of 22 blood and sputum cultures currently pe nding 3-patient to continue with the vancomycin and cefepime while waiting for the culture to finalize Dictation was produced using [employer] dictation software. please excuse any grammatical, word or spelling errors. Time with Patient: Less than 30
[2023-10-08] MEDS: APIXABAN 5 MG TAB PO SCH (09:16)
[2023-10-08] MEDS: DILTIAZEM ORAL 30 MG TAB PO SCH (09:16)
--- NOTE | 2023-10-08 11:28 | P.GSCN ---
History of Present Illness Consult date: 10/08/23 History of present illness: CHIEF COMPLAINT: Shortness of breath HISTORY OF PRESENT ILLNESS: This is a 78-year-old female who presented with cough and shortness of breath x 1 week. She was found to have evidence of pneumonia with sepsis. She required transfer to the ICU yesterday due to A-fib with RVR. Patient has converted to sinus rhythm. She is followed by cardiology service. Patient apparently had 1 episode of coffee-ground emesis in the ER. She did have a 3 g drop of hemoglobin. Hemoglobin 11.8 on admission down to 8.8. Currently 9.0. She denies any abdominal pain. Patient did receive IV fluid bolus and has been on IV maintenance fluids. Patient does report taking Pepto-Bismol at home. She denies any black stools. Denies any blood in her sto ols. She has never had a EGD. She denies having colonoscopy. She has had Cologuard testing which patient reports has been normal. She denies any NSAID use. She did have a brown bowel movement. She was febrile yesterday. She is on antibiotics for pneumonia. PAST MEDICAL HISTORY: Hyperlipidemia, chronic back pain PAST SURGICAL HISTORY: Hysterectomy, orthopedic surgery, tonsillectomy MEDICATIONS: See below ALLERGIES: See below SOCIAL HISTORY: No illicit drug use. REVIEW OF SYSTEMS: CONSTITUTIONAL: Denies fever or chills. HEENT: Denies blurred vision, vision changes, or eye pain. Denies hemoptysis CARDIOVASCULAR: Denies chest pain or pressure. RESPIRATORY: No shortness of breath. GASTROINTESTINAL: See HPI for pertinent findings HEMATOLOGIC: Denies bleeding disorders. GENITOURINARY: Denies any blood in urine or increased urinary frequency. SKIN: Denies pruitis. Denies rash. PHYSICAL EXAM: VITAL SIGNS: Reviewed GENERAL: Well-developed in no acute distress. Pale HEENT: No sclera icterus. Extraocular movements grossly intact. Moist buccal mucosa. Head is atraumatic, normocephalic. No nasal drainage. ABDOMEN: Soft. Nondistended. Nontender NEUROLOGIC: Alert and oriented. Cranial nerves II through XII grossly intact. LABORATORY DATA: WBC 14.9 down to 13.8 Hgb 11.8 down to 8.8 currently 9.0 platelets 131 Sodium 135 potassium 3.6 creatinine 0.49 Lactic acid 2.1 down to 1.7 IMAGING: Chest x-ray reports worsening infiltrates in the left mid and lower lung smith. ASSESSMENT: 1. Coffee-ground emesis x 1 2. Anemia 3. Pneumonia 4. New onset of A-fib PLAN: -Patient scheduled for EGD tomorrow with Dr. Nelson -Hold on starting Eliquis -Continue to monitor for any signs or symptoms of bleeding -Continue to monitor hemoglobin -Continue IV Protonix -Continue IV fluids Physician Installation Manager note has been reviewed by physician. Signing provider agrees with the documented findings, assessment, and plan of care. Past Medical History Past Medical History: Hyperlipidemia Additional Past Medical History / Comment(s): chronic back pain, hiatal hernia, hyperlipidemia, Previous hip fracure and chronic nerve pain History of Any Multi-Drug Resistant Organisms: None Reported Past Surgical History: Hysterectomy, Orthopedic Surgery, Tonsillectomy Additional Past Surgical History / Comment(s): bilat knee sx, foot sx x2 Past Anesthesia/Blood Transfusion Reactions: No Reported Reaction Past Psychological History: Depression Smoking Status: Former smoker - Past Family History Sister(s) Family Medical History: Cancer Medications and Allergies Home Medications Medication Instructions Recorded Confirmed Type Atorvastatin [Lipitor] 40 mg PO DAILY 11/06/22 10/06/23 History Bimatoprost [Lumigan 0.01% Ophth 1 drop BOTH EYES HS 11/06/22 10/06/23 History Soln] Calcium Carbonate [Calcium] 600 mg PO HS 11/06/22 10/06/23 History Cholecalciferol [Vitamin D3 (25 25 mcg PO DAILY 11/06/22 10/06/23 History Mcg = 1000 Iu)] Cranberry 4200 Mg 4,200 mg PO DAILY 11/06/22 10/06/23 History Escitalopram [Lexapro] 5 mg PO HS 11/06/22 10/06/23 History Gabapentin 300 mg PO TID 11/06/22 10/06/23 History Ezetimibe [Zetia] 10 mg PO DAILY 10/06/23 10/06/23 History HYDROcodone/APAP 5-325MG [[place] 1 tab PO BID PRN 10/06/23 10/06/23 History 5-325] Lansoprazole [Prevacid] 30 mg PO DAILY 10/06/23 10/06/23 History Zoledronic Acid 5Mg/100Ml Pmx 1 dose IVPB Q365D 10/06/23 10/06/23 History [Reclast] Allergies Allergy/AdvReac Type Severity Reaction Status Date / Time No Known Allergies Allergy Verified 10/06/23 11:20 Surgical - Exam Vital Signs Temp Pulse Resp BP Pulse Ox 100.2 F H 121 H 27 H 144/119 89 L 10/06/23 04:58 10/06/23 04:58 10/06/23 04:58 10/06/23 04:58 10/06/23 04:58 Results - Labs 10/08/23 05:33 10/08/23 05:33 Abnormal Lab Results - Last 24 Hours (Table) 10/07/23 10/07/23 10/08/23 Range/Units 16:36 17:20 05:33 WBC 13.8 H (3.8-10.6) k/uL RBC 3.43 L (3.80-5.40) m/uL Hgb 9.0 L (11.4-16.0) gm/dL Hct 28.8 L (34.0-46.0) % RDW 16.0 H (11.5-15.5) % Plt Count 131 L (150-450) k/uL Neutrophils # 12.3 H (1.3-7.7) k/uL Lymphocytes # 0.7 L (1.0-4.8) k/uL ABG pH 7.46 H (7.35-7.45) ABG pCO2 30 L (35-45) mmHg ABG pO2 43 L* (83-108) mmHg ABG O2 Saturation 83.0 L (94-97) % Sodium (137-145) mmol/L Chloride (98-107) mmol/L Carbon Dioxide (22-30) mmol/L Creatinine (0.52-1.04) mg/dL POC Glucose (mg/dL) 136 H (70-110) mg/dL Calcium (8.4-10.2) mg/dL AST (14-36) U/L Total Protein (6.3-8.2) g/dL Albumin (3.5-5.0) g/dL 10/08/23 Range/Units 05:33 WBC (3.8-10.6) k/uL RBC (3.80-5.40) m/uL Hgb (11.4-16.0) gm/dL Hct (34.0-46.0) % RDW (11.5-15.5) % Plt Count (150-450) k/uL Neutrophils # (1.3-7.7) k/uL Lymphocytes # (1.0-4.8) k/uL ABG pH (7.35-7.45) ABG pCO2 (35-45) mmHg ABG pO2 (83-108) mmHg ABG O2 Saturation (94-97) % Sodium 135 L (137-145) mmol/L Chloride 112 H (98-107) mmol/L Carbon Dioxide 17 L (22-30) mmol/L Creatinine 0.49 L (0.52-1.04) mg/dL POC Glucose (mg/dL) (70-110) mg/dL Calcium 7.5 L (8.4-10.2) mg/dL AST 40 H (14-36) U/L Total Protein 4.7 L (6.3-8.2) g/dL Albumin 2.7 L (3.5-5.0) g/dL Microbiology - Last 24 Hours (Table) 10/06/23 18:49 Gram Stain - Preliminary Sputum Sputum Culture - Preliminary Gram Neg Bacilli 10/06/23 18:49 Nasal Screen MRSA/MSSA - Final Nasopharyngeal Swab 10/07/23 07:56 Gram Stain - Preliminary Sputum 10/06/23 05:16 Blood Culture - Preliminary Blood 10/06/23 05:01 Blood Culture - Preliminary Blood Diabetes panel 10/08/23 Range/Units 05:33 Sodium 135 L (137-145) mmol/L Potassium 3.6 (3.5-5.1) mmol/L Chloride 112 H (98-107) mmol/L Carbon Dioxide 17 L (22-30) mmol/L BUN 15 (7-17) mg/dL Creatinine 0.49 L (0.52-1.04) mg/dL Glucose 97 (74-99) mg/dL Calcium 7.5 L (8.4-10.2) mg/dL AST 40 H (14-36) U/L ALT 21 (4-34) U/L Alkaline Phosphatase 63 (38-126) U/L Total Protein 4.7 L (6.3-8.2) g/dL Albumin 2.7 L (3.5-5.0) g/dL Thyroid panel 10/08/23 Range/Units 05:33 TSH 0.887 (0.465-4.680) mIU/L Calcium panel 10/08/23 Range/Units 05:33 Calcium 7.5 L (8.4-10.2) mg/dL Albumin 2.7 L (3.5-5.0) g/dL Pituitary panel 10/08/23 10/08/23 Range/Units 05:33 05:33 Sodium 135 L (137-145) mmol/L Potassium 3.6 (3.5-5.1) mmol/L Chloride 112 H (98-107) mmol/L Carbon Dioxide 17 L (22-30) mmol/L BUN 15 (7-17) mg/dL Creatinine 0.49 L (0.52-1.04) mg/dL Glucose 97 (74-99) mg/dL Calcium 7.5 L (8.4-10.2) mg/dL TSH 0.887 (0.465-4.680) mIU/L Adrenal panel 10/08/23 Range/Units 05:33 Sodium 135 L (137-145) mmol/L Potassium 3.6 (3.5-5.1) mmol/L Chloride 112 H (98-107) mmol/L Carbon Dioxide 17 L (22-30) mmol/L BUN 15 (7-17) mg/dL Creatinine 0.49 L (0.52-1.04) mg/dL Glucose 97 (74-99) mg/dL Calcium 7.5 L (8.4-10.2) mg/dL Total Bilirubin 1.0 (0.2-1.3) mg/dL AST 40 H (14-36) U/L ALT 21 (4-34) U/L Alkaline Phosphatase 63 (38-126) U/L Total Protein 4.7 L (6.3-8.2) g/dL Albumin 2.7 L (3.5-5.0) g/dL
[2023-10-08] MEDS: CEFEPIME 2 GM in SODIUM CHLORIDE 0.9% 100 ML IVPB SCH (11:43)
[2023-10-08] MEDS: VANCOMYCIN TROUGH DUE 1 EACH MISC MISCELLANE ONE (11:43)
--- NOTE | 2023-10-08 11:58 | P.PN ---
Subjective Progress Note Date: 10/08/23 Principal diagnosis: Acute left lower lobe pneumonia: Community-acquired, although possible aspiration pneumonia is in the differential. This is a 78-year-old female patient who got sick within the past 24 hours. According to the , the patient had an episode of choking on food material at home few days back. Over the past 24 hours, she felt weak, lethargic and she was also having increased congested cough. No history of lung disease. No previous episodes of pneumonia. No previous history of aspiration. Chest x-ray shows an extensive airspace disease in the left lower lobe. Hemodynamically stable. White cell 5.3, normal coagulation profile, BUN is 18 with a creatinine of 0.7. Initial lactic acid level was at 5.2 dropped down to 2.6. The viral screen has been negative. Troponins are negative. LFTs are normal. Electrolytes show a component of non-anion gap metabolic acidosis with a serum bicarb of 19, BUN of 18 with a creatinine of 0.77. The patient is currently on Zosyn and Zithromax. She is currently on oxygen at 5 L with a pulse ox of 95%. She is lethargic and she is able to communicate. Family is at the bedside. Patient was evaluated today on 10/07/2023, feeling much better since admission, breathing a lot easier, chest x-ray is actually showing improvement in her left lower lobe infiltrate continues to have leukocytosis with WBC count of 14.9 hemoglobin is 8.8 electrolytes are normal renal profile is normal, clinically however the patient is feeling better, O2 saturation is 100% on 2 L nasal cannula it was 93% on room air sputum cultures and blood cultures remain negative so far Patient was evaluated today on 10/08/2023, I saw this patient yesterday, and she was doing quite well. She was on 2 L nasal cannula, was not in any distress. However couple of hours after I saw the patient, I was notified by the nurse that her primary care physician is concerned about the patient and she was looking pale she was short of breath, and he recommended immediate transfer to the ICU. I did not get a chance to go and evaluate the patient on the floor again, however based on the insistence of her primary care, I recommended tra nsfer to the ICU, check ABG, and to monitor the patient in the ICU overnight. Shortly after she arrived to the ICU, her pO2 did not seem quite bad, she was relatively hypoxic which is expected considering her pneumonia this was done on 2 L nasal cannula and her ABG showed a pO2 of 43 pCO2 of 3 0 pH of 7.46, remind you patient had extensive pneumonia. In the ICU she was placed on 6 L nasal cannula, she looked very comfortable, she was hemodynamically stable, and in no distress. Hence I kept the patient in the ICU overnight, saw the patient today, she is doing much better, not in any distress, patient had an episode of atrial fibrillation, seen by cardiology, placed on Cardizem, and plan to transition Cardizem to oral instead of IV. Patient did not seem to be in any distress to me, hence I plan to transfer the patient back to the medical floor/3 S. Labs today show WBC of 13.8 hemoglobin of 9, Basic metabolic profile is relatively normal bicarb is 17 BUN is 15 creatinine 0.49 chest x-ray today continues to show extensive left-sided pneumonia involving the left lower lobe, lingula, and to some extent the left upper lobe Objective - Vital Signs Vital signs: Vital Signs Temp 98.0 F 10/08/23 08:00 Pulse 77 10/08/23 11:00 Resp 20 10/08/23 11:00 BP 128/73 10/08/23 11:00 Pulse Ox 99 10/08/23 09:23 FiO2 100 10/06/23 07:59 Intake & Output 10/07/23 10/08/23 10/08/23 18:59 06:59 18:59 Intake Total 1060 1950 300 Output Total 500 850 1 Balance 560 1100 299 Weight 84.005 kg Intake: IV 100 1200 300 0.9 100 1200 300 Intake, IV Titration 500 Amount Vancomycin 1,500 mg In 500 Sodium Chloride 0.9% 500 ml 500 ml @ 167 mls/hr IVPB Q16H [facility] Rx#: [id number] Oral 960 250 Output: Urine 500 850 1 Other: Voiding Method Toilet External Catheter Bedpan # Voids 1 # Bowel Movements 1 1 - Exam General: Revealed 78-year-old female in no distress Skin: Skin is warm and dry and no rashes or lesions are noted. Eye: Pupils are equal, round and reactive to light, extra-ocular movements are intact; there is normal conjunctiva bilaterally. Ears, nose, mouth and throat: There are moist mucous membranes and no oral lesions. Neck: The neck is supple, there is no tenderness or JVD. Cardiovascular: There is a regular rate and rhythm. No murmur, rub or gallop is appreciated. Respiratory: Minimal fine crackles at the left base no rhonchi no wheezes Gastrointestinal: Soft, non-distended, non-tender abdomen without masses or organomegaly noted. There is no rebound or guarding present. Bowel sounds are unremarkable. Back: There is no tenderness to palpation in the midline. There is no obvious deformity. Musculoskeletal: Normal ROM, no tenderness, There is no pedal edema. There is no calf tenderness or swelling. No cords were appreciated. Neurological: CN II-XII intact, Cranial nerves III through XII are intact. There are no obvious motor or sensory deficits. Coordination appears grossly intact. Speech is normal. Psychiatric: Cooperative, appropriate mood & affect, normal judgment. - Labs CBC & Chem 7: 10/08/23 05:33 10/08/23 05:33 Labs: Abnormal Lab Results - Last 24 Hours (Table) 10/07/23 10/07/23 10/08/23 Range/Units 16:36 17:20 05:33 WBC 13.8 H (3.8-10.6) k/uL RBC 3.43 L (3.80-5.40) m/uL Hgb 9.0 L (11.4-16.0) gm/dL Hct 28.8 L (34.0-46.0) % RDW 16.0 H (11.5-15.5) % Plt Count 131 L (150-450) k/uL Neutrophils # 12.3 H (1.3-7.7) k/uL Lymphocytes # 0.7 L (1.0-4.8) k/uL ABG pH 7.46 H (7.35-7.45) ABG pCO2 30 L (35-45) mmHg ABG pO2 43 L* (83-108) mmHg ABG O2 Saturation 83.0 L (94-97) % Sodium (137-145) mmol/L Chloride (98-107) mmol/L Carbon Dioxide (22-30) mmol/L Creatinine (0.52-1.04) mg/dL POC Glucose (mg/dL) 136 H (70-110) mg/dL Calcium (8.4-10.2) mg/dL AST (14-36) U/L Total Protein (6.3-8.2) g/dL Albumin (3.5-5.0) g/dL 10/08/23 Range/Units 05:33 WBC (3.8-10.6) k/uL RBC (3.80-5.40) m/uL Hgb (11.4-16.0) gm/dL Hct (34.0-46.0) % RDW (11.5-15.5) % Plt Count (150-450) k/uL Neutrophils # (1.3-7.7) k/uL Lymphocytes # (1.0-4.8) k/uL ABG pH (7.35-7.45) ABG pCO2 (35-45) mmHg ABG pO2 (83-108) mmHg ABG O2 Saturation (94-97) % Sodium 135 L (137-145) mmol/L Chloride 112 H (98-107) mmol/L Carbon Dioxide 17 L (22-30) mmol/L Creatinine 0.49 L (0.52-1.04) mg/dL POC Glucose (mg/dL) (70-110) mg/dL Calcium 7.5 L (8.4-10.2) mg/dL AST 40 H (14-36) U/L Total Protein 4.7 L (6.3-8.2) g/dL Albumin 2.7 L (3.5-5.0) g/dL Microbiology - Last 24 Hours (Table) 10/06/23 18:49 Gram Stain - Preliminary Sputum Sputum Culture - Preliminary Gram Neg Bacilli 10/06/23 18:49 Nasal Screen MRSA/MSSA - Final Nasopharyngeal Swab 10/07/23 07:56 Gram Stain - Preliminary Sputum 10/06/23 05:16 Blood Culture - Preliminary Blood 10/06/23 05:01 Blood Culture - Preliminary Blood Assessment and Plan Assessment: Impression: Acute left lower lobe pneumonia, possible community-acquired pneumonia although based on the clinical history I am suspecting that we may be dealing with an episode of aspiration pneumonia. Acute hypoxic respiratory failure secondary to above History of hiatal hernia Dyslipidemia Degenerative joint disease Chronic neuropathic pain Coffee-ground emesis, suspect some component of upper GI bleeding New onset atrial fibrillation Recommendation: Will transfer the patient back to the cardiac floor today. Continue Cardizem, patient is now on oral Cardizem as ordered by cardiology Echocardiogram is pending Thyroid studies are pending Patient was seen by general surgery for EGD because of her coffee-ground emesis Continue antibiotics for her left lower lobe pneumonia Continue bronchodilators continue GI and DVT prophylaxis Will continue to follow-up with Time with Patient: Less than 30
--- NOTE | 2023-10-08 12:45 | P.PN ---
Subjective Progress Note Date: 10/08/23 HISTORY OF PRESENT ILLNESS: This is an 78 -year-old female with a previous medical history sign ificant for hyperlipidemia, GERD with esophagitis, osteoarthritis, patient was in her usual state of health till about 2 days ago when she had a coughing episode while she was eating, according to her she probably choked on her food, and she was complaining of some indigestion at that time, patient felt better after few hours, and last night she was having fever and chills and she was coughing quite a bit of phlegm associated with increased sore throat, so she was brought into the emergency department at [facility] today because of shortness of breath, and because is not feeling good, she appeared to be quite drowsy, she denies any sick contact, she denies any diarrhea, she did have 1 episode of vomiting, she does cough up some black stuff, she did receive Pepto- Bismol from her earlier yesterday, patient was seen and evaluated in the emergency department, she was in respiratory distress, she did have lactic acidosis with a lactic acid of 5.6, she was given IV fluid resuscitation, her chest x-ray showed significant pneumonia in the left side involving the upper lobe and lower lobe, patient was started on oxygen at 4 L nasal cannula, her oxygen saturation was around 95%, patient appears to be breathing shallower, pulmonary consultation was obtained from Dr. Peng, patient did receive Zithromax as well as Zosyn in the ER, she will need to be admitted to the hospital for further evaluation recommendation she will be started nebulized treatment in the form of Albuterol 3ml nebulization 4 times every day, also she will be started on Mucinex 600 mg orally twice every day, she will have sputum culture, we will check urine Legionella antigen, mycoplasma antibody IgG and IgM, I will broaden the antibiotic to rule out any MRSA pneumonia started on vancomycin 1000 mg x 1 and pharmacy to dose its peak and trough, and as stated earlier pulmonary consultation for further evaluation and recommendation for possible ICU care, I will consult infectious disease as well Dr. Mo. 10/06: Patient continues to be somewhat short of breath, she continues to be on o xygen support, she appears to be pale, she appears to be confused, she appears in severe sepsis, I have asked the nursing staff to order blood gases, and lactic acid, she will be transferred to the intensive care unit for further evaluation and recommendation, continue IV fluid resuscitation, continue patient on IV antibiotic in the form of vancomycin as well as cefepime per infectious disease recommendation, we will continue to monitor the patient very closely, I believe the patient will end up on the ventilator due to her altered level of consciousness. 10/07: Patient is laying down in bed in no apparent distress, yesterday she went into atrial fibrillation with rapid ventricular response, she initially was started on a Cardizem drip, and after that she was converted back to sinus rhythm, she was seen in consultation by cardiology, she will be started on Eliquis 5 mg orally twice every day for stroke prevention, patient is at 3 L nasal cannula, her oxygen saturation 98%, she is doing better, chest x-ray appears worse, commercial horticulture instructor recommended for the patient to be transferred to the telemetry unit at this time, patient appears in better spirits today, will continue current treatment plan, continue the patient on IV antibiotic in the form of vancomycin as well as cefepime, infectious and pulmonary medicine are following. REVIEW OF SYSTEMS: Constitutional: positive for fever, positive for chills, no night sweats. No weight change. positive for weakness, positive for fatigue and lethargy lethargy. No daytime sleepiness. HEENT: No headache. No blurred vision or double vision, no loss of vision. No loss of Hearing, no ringing in the ears, no dizziness. No nasal drainage or congestion. No epistaxis. No sore throat. Lungs: positive for shortness of breath, positive for coughing , positive for sputum production. No wheezing. Reports dyspnea with activity. Cardiovascular: No chest pain, no lower extremity edema. No palpitations. No paroxysmal nocturnal dyspnea. No orthopnea. No lightheadedness or dizziness. No syncopal episodes. Abdominal: Reports no abdominal pain. No nausea, vomiting. No diarrhea. No constipation. No bloody or tarry stools reports loss of appetite. Genitourinary: No dysuria, increased frequency, urgency. No urinary retention. Musculoskeletal: No myalgias. No muscle weakness, no gait dysfunction, no frequent falls. positive for back pain. No neck pain, positive for left hip pain Integumentary: No wounds, no lesions. No rash or pruritus. No unusual bruising. No change in hair or nails. Neurologic: No aphasia. No facial droop. positive for change in mentation. No head injury. No headache. No paralysis. No paresthesia. Psychiatric: No depression. No anxiety. No mood swings. Endocrine: No abnormal blood sugars. No weight change. PHYSICAL EXAMINATION: General: 78-year-old female laying down in bed in respiratory distress. HEENT: Head is atraumatic, normocephalic, pupils were equal round reactive to light and recommendation, extraocular muscle movement were intact, sclera nonicteric, conjunctivae were pale, mucous membranes of the mouth are somewhat dry. Neck: Supple, no JVP, normal carotid upstroke bilaterally, no lymphadenopathy. Chest: Decreased breath sounds at the bases, few rhonchi, positive for egophony to the left lung, positive for rapid shallow breathing, positive for minimal intercostal retractions. Heart: First heart sound is normal, second heart sounds normal there is DARREN 2/6 located at the left sternal border Abdomen: Soft, nontender, nondistended, positive bowel sounds. Extremities: There is no edema no calf tenderness DP +2 bilaterally Neurologic examination: Patient is stuporous, opens her eyes in response to verbal stimuli, she is moving all her extremities, but appears to have metabolic encephalopathy likely to underlying sepsis. ASSESSMENT AND PLAN: 1. Acute hypoxemic respiratory failure due to multilobar left sided pneumonia likely gram-negative pneumonia rule out MRSA pneumonia with severe sepsis present on admission. Continue vancomycin, continue cefepime 2 g IV piggyback every 12 hours, sputum culture, await for the result of the blood culture, await the further results of the mycoplasma IgG and IgM, await the result of Legionella antigen, I believe the patient may have a MRSA pneumonia, monitor the patient very closely, she is down to 3 L nasal cannula, she can be transferred to a telemetry unit. 2. Lactic acidosis likely due to pneumonia with severe sepsis. Lactic acid is back to normal. 3. Metabolic encephalopathy due to severe sepsis due to underlying pneumonia. She is back to normal discontinue gabapentin. 4. Atrial fibrillation with rapid ventricle response back to sinus rhythm continue with Cardizem 30 mg orally 3 times every day, hold off Eliquis until after EGD tomorrow morning. 5. Coffee-ground emesis with acute symptomatic anemia. Hold off Eliquis for now, patient is scheduled to go for EGD tomorrow morning. 6. Hyperlipidemia. Continue patient on atorvastatin 40 mg once every day, monitor the patient with a panel keep the patient LDL 55-70. 7. Anxiety/depressive disorder. Continue patient on Lexapro 5 mg orally once every day. 8. Vitamin D deficiency. Continue vitamin D supplement. 9. Osteoarthritis. Continue current pain management. 10. GERD with hiatal hernia. Continue patient on Protonix 40 mg IV push every 12 hours, discontinue famotidine. 11. Spondylosis of the lumbar spine. Discontinue gabapentin due to metabolic encephalopathy. 12. DVT prophylaxis. Continue Lovenox for now 40 mg subcutaneous every 24 hours. 13. GI prophylaxis. Continue Protonix 40 mg IV push every 12 hours. 14. Transfer the patient to a telemetry unit. 15. Guarded prognosis. Objective - Vital Signs Vital signs: Vital Signs Temp 98.0 F 10/08/23 08:00 Pulse 77 10/08/23 11:00 Resp 20 10/08/23 11:00 BP 128/73 10/08/23 11:00 Pulse Ox 99 10/08/23 09:23 FiO2 100 10/06/23 07:59 Intake & Output 10/07/23 10/08/23 10/08/23 18:59 06:59 18:59 Intake Total 1060 1950 300 Output Total 500 850 1 Balance 560 1100 299 Weight 84.005 kg Intake: IV 100 1200 300 0.9 100 1200 300 Intake, IV Titration 500 Amount Vancomycin 1,500 mg In 500 Sodium Chloride 0.9% 500 ml 500 ml @ 167 mls/hr IVPB Q16H [facility] Rx#: [id number] Oral 960 250 Output: Urine 500 850 1 Other: Voiding Method Toilet External Catheter Bedpan # Voids 1 # Bowel Movements 1 1 - Labs CBC & Chem 7: 10/08/23 05:33 10/08/23 05:33 Labs: Abnormal Lab Results - Last 24 Hours (Table) 10/07/23 10/07/23 10/08/23 Range/Units 16:36 17:20 05:33 WBC 13.8 H (3.8-10.6) k/uL RBC 3.43 L (3.80-5.40) m/uL Hgb 9.0 L (11.4-16.0) gm/dL Hct 28.8 L (34.0-46.0) % RDW 16.0 H (11.5-15.5) % Plt Count 131 L (150-450) k/uL Neutrophils # 12.3 H (1.3-7.7) k/uL Lymphocytes # 0.7 L (1.0-4.8) k/uL ABG pH 7.46 H (7.35-7.45) ABG pCO2 30 L (35-45) mmHg ABG pO2 43 L* (83-108) mmHg ABG O2 Saturation 83.0 L (94-97) % Sodium (137-145) mmol/L Chloride (98-107) mmol/L Carbon Dioxide (22-30) mmol/L Creatinine (0.52-1.04) mg/dL POC Glucose (mg/dL) 136 H (70-110) mg/dL Calcium (8.4-10.2) mg/dL AST (14-36) U/L Total Protein (6.3-8.2) g/dL Albumin (3.5-5.0) g/dL 10/08/23 Range/Units 05:33 WBC (3.8-10.6) k/uL RBC (3.80-5.40) m/uL Hgb (11.4-16.0) gm/dL Hct (34.0-46.0) % RDW (11.5-15.5) % Plt Count (150-450) k/uL Neutrophils # (1.3-7.7) k/uL Lymphocytes # (1.0-4.8) k/uL ABG pH (7.35-7.45) ABG pCO2 (35-45) mmHg ABG pO2 (83-108) mmHg ABG O2 Saturation (94-97) % Sodium 135 L (137-145) mmol/L Chloride 112 H (98-107) mmol/L Carbon Dioxide 17 L (22-30) mmol/L Creatinine 0.49 L (0.52-1.04) mg/dL POC Glucose (mg/dL) (70-110) mg/dL Calcium 7.5 L (8.4-10.2) mg/dL AST 40 H (14-36) U/L Total Protein 4.7 L (6.3-8.2) g/dL Albumin 2.7 L (3.5-5.0) g/dL Microbiology - Last 24 Hours (Table) 10/06/23 18:49 Gram Stain - Preliminary Sputum Sputum Culture - Preliminary Gram Neg Bacilli 10/06/23 18:49 Nasal Screen MRSA/MSSA - Final Nasopharyngeal Swab 10/07/23 07:56 Gram Stain - Preliminary Sputum 10/06/23 05:16 Blood Culture - Preliminary Blood 10/06/23 05:01 Blood Culture - Preliminary Blood
[2023-10-08 18:29] LABS: Glucose,Whole Blood 111 mg/dL (70-110)
--- NOTE | 2023-10-08 18:43 | XR ---
EXAMINATION TYPE: XR chest 1V portable DATE OF EXAM: 10/08/2023 COMPARISON: 10/08/2023 earlier exam INDICATION: Pneumonia TECHNIQUE: Single frontal view of the chest is obtained semiupright position. FINDINGS: The heart size is normal. The pulmonary vasculature is normal. Consolidation is through the mid and lower lung field. There is may be extending towards the upper lo be and worsening from earlier exam IMPRESSION: 1. Worsening left mid and lower lung field consolidation
[2023-10-08 19:27] LABS: ABG Base Excess -3.8 mmol/L; ABG HCO3 19 mmol/L (21-25); ABG Oxygen Saturation 99.3 % (94-97); ABG PCO2 27 mmHg (35-45); ABG PH 7.46 (7.35-7.45); ABG PO2 120 mmHg (83-108); ABG TCO2 20 mmol/L (19-24); Allen Test Performed? Yes
[2023-10-08] MEDS: GABAPENTIN 300 MG CAP PO SCH (20:05)
[2023-10-08] MEDS: MELATONIN 3 MG TABLET PO SCH (20:05)
[2023-10-09] MEDS: VANCOMYCIN 1,500 MG in SODIUM CHLORIDE 0.9% 500 ML 500 ML IVPB SCH (00:57)
[2023-10-09 05:05] LABS: Mycoplasma IgG Antibody (EIA) 0.88 INDEX (<=0.90); Mycoplasma IgM Antibody 0.04 INDEX (<=0.90)
[2023-10-09 06:11] LABS: Basophils % (A) 0 %; Eosinophils # (A) 0.1 k/uL (0-0.7); Eosinophils % (A) 1 %; HCT 28.5 % (34.0-46.0); HGB 8.8 gm/dL (11.4-16.0); Hypochromasia Moderate; Lymphocytes # (A) 0.5 k/uL (1.0-4.8); Lymphocytes % (A) 4 %; MCH 25.9 pg (25.0-35.0); MCHC 30.9 g/dL (31.0-37.0); MCV 83.9 fL (80.0-100.0); Mean Platelet Volume 9.7; Monocytes # (A) 0.6 k/uL (0-1.0); Monocytes % (A) 5 %; Neutrophils % (A) 88 %; Platelet Count 173 k/uL (150-450); RDW 15.8 % (11.5-15.5); WBC 12.5 k/uL (3.8-10.6)
[2023-10-09 06:25] LABS: African American GFR (CKD) >90 (>60 ml/min/1.73 sqM); Anion Gap 4 mmol/L; Blood Urea Nitrogen 13 mg/dL (7-17); Calcium 7.4 mg/dL (8.4-10.2); Carbon Dioxide 19 mmol/L (22-30); Chloride 113 mmol/L (98-107); Glucose 93 mg/dL (74-99); Non-African American GFR(CKD) >90 (>60 ml/min/1.73 sqM); Potassium 3.4 mmol/L (3.5-5.1); Sodium 136 mmol/L (137-145)
[2023-10-09] MEDS: POTASSIUM CHLORIDE 10 MEQ in WATER FOR INJECTION 1 100ML.BAG IVPB SCH (06:34)
--- NOTE | 2023-10-09 07:27 | CA ---
Transthoracic Echo Report Name: Kristi Espinoza Age: 78 Gender: F : 1945 Exam Date: 10/08/2023 08:51 Exam Location: [facility] Ht (in): 67 Wt (lb): 185 Ordering Physician: Gideon Schmitz MD ([id number]) Attending/Referring Phys: Accessibility Lift Technician Marci Lopez RDCS Procedure CPT: Indications: afib Cardiac Hx: Technical Quality: Technically difficult study Contrast 1: Definity Total Dose (mL): 2 Contrast 2: Total Dose (mL): MEASUREMENTS (Male / Female) Normal Values 2D ECHO LVOT Diameter 2.3 cm LV Diastolic Volume MOD BP 97.4 cm??? 67 - 155 / 56 - 104 cm??? LV Systolic Volume MOD BP 34.7 cm??? 22 - 58 / 19 - 49 cm??? LV Ejection Fraction MOD BP 64.4 % >= 55 % LV Cardiac Index MOD BP 2305.6 cm???/min???m??? LV Diastolic Volume MOD 4C 102.6 cm??? LV Systolic Volume MOD 4C 30.3 cm??? LV Ejection Fraction MOD 4C 70.4 % LV Cardiac Index MOD 4C 2656.9 cm???/min???m??? LV Diastolic Length 4C 7.6 cm LV Systolic Length 4C 6.2 cm LV Diastolic Volume MOD 2C 87.0 cm??? LV Systolic Volume MOD 2C 37.8 cm??? LV Ejection Fraction MOD 2C 56.5 % LV Cardiac Index MOD 2C 1808.8 cm???/min???m??? LV Diastolic Length 2C 8.1 cm LV Systolic Length 2C 6.5 cm LA Volume 61.9 cm??? 18 - 58 / 22 - 52 cm??? LA Volume Index 30.7 cm???/m??? 16 - 28 cm???/m??? DOPPLER AV Peak Velocity 148.1 cm/s AV Peak Gradient 8.8 mmHg AV Mean Velocity 101.9 cm/s AV Mean Gradient 4.6 mmHg AV Velocity Time Integral 34.3 cm LVOT Peak Velocity 117.3 cm/s LVOT Peak Gradient 5.5 mmHg LVOT Velocity Time Integral 25.7 cm LVOT Stroke Volume 105.5 cm??? LVOT Stroke Volume Index 53.9 ml/m??? LVOT Cardiac Index 3877.6 cm???/min???m??? AV Area Cont Eq vti 3.1 cm??? AV Area Cont Eq pk 3.3 cm??? MV Area PHT 4.9 cm??? Mitral E Point Velocity 93.3 cm/s Mitral A Point Velocity 63.1 cm/s Mitral E to A Ratio 1.5 MV Deceleration Time 156.1 ms TR Peak Velocity 259.4 cm/s TR Peak Gradient 26.9 mmHg Right Atrial Pressure 10.0 mmHg Pulmonary Artery Systolic Pressu 36.9 mmHg Right Ventricular Systolic Press 36.9 mmHg PV Peak Velocity 86.1 cm/s PV Peak Gradient 3.0 mmHg FINDINGS Left Ventricle Left ventricular ejection fraction is estimated at 55-60 %. Left ventricular cavity size normal. No obvious regional wall motion abnormalities. Right Ventricle Normal right ventricular size and function. Mildly elevated right ventricular systolic pressure. Right Atrium Normal right atrial size. Left Atrium Mildly increased left atrial volume. Mitral Valve Structurally normal mitral valve. No evidence for mitral valve prolapse. No mitral stenosis. Moderate mitral regurgitation. Aortic Valve Trileaflet aortic valve. No aortic stenosis. Mild aortic regurgitation. Tricuspid Valve Structurally normal tricuspid valve. No tricuspid stenosis. Mild tricuspid regurgitation. Pulmonic Valve Pulmonic valve not well visualized. No pulmonic stenosis. Mild pulmonic regurgitation. Pericardium Trace pericardial effusion. Aorta Aortic annulus normal. Ascending aorta not well visualized. CONCLUSIONS Normal LV systolic function Moderate mitral regurgitation Trace pericardial effusion Previewed by: Dr. Valerio Savage MD (Electronically Signed) Final Date: 09 October 2023 07:26
--- NOTE | 2023-10-09 07:30 | P.PN ---
Subjective Progress Note Date: 10/09/23 PROGRESS NOTE The patient is an 78-year-old female with no prior documented history of CAD who presented with symptoms of cough, aspiration pneumonia and weakness. She was transferred to the ICU and had atrial fibrillation with episodes of rapid ventricular response. She is not aware of the arrhythmia. She has no prior cardiac history. She has fractured her hip about a year ago but prior to that has been active without any symptoms of chest discomfort or dyspnea. She denies any history of dizziness, palpitations or syncope. Her breathing is better. She denies any significant peripheral edema, no PND or orthopnea. She was started on IV Cardizem. On admission she was lethargic but appears to be awake and alert today with no complaints. She is a non-smoker, she has a history of hyperlipidemia. October 08: The patient is feeling well this morning, she feels tired but otherwise has no chest discomfort. She continues to be in sinus mechanism. She continues to have dyspnea and some cough. She had upper GI bleeding and she is scheduled to undergo endoscopy. She had no further episodes of atrial fibrillation. Her echocardiogram revealed a preserved systolic function with moderate mitral regurgitation. Her urinary output has been good. Medications: Aspirin, Lipitor 40 mg daily, cefepime, diltiazem 30 mg p.o. 3 times daily, Neurontin, Protonix, vancomycin PHYSICAL EXAMINATION: Blood pressure 140/70 heart rate 70 LUNGS: Bibasilar crackles more on the left side HEART: Regular rate and rhythm, S1, S2. No S3. Systolic ejection murmur ABDOMEN: Soft, nontender, no organomegaly EXTREMETIES: No edema LAB: Hemoglobin 8.8, WBC 12.5, platelets 173. Potassium 3.4, BUN 13, creatinine 0.48. IMPRESSION: 1. Aspiration pneumonia with hypoxemia, improving 2. Paroxysmal atrial fibrillation, back in sinus mechanism 3. GI bleeding, scheduled for endoscopy. Anticoagulation on hold 4. History of hyperlipidemia PLAN: 1. Depending on the results of her endoscopy the decision will be made regarding anticoagulation 2. Continue oral Cardizem 3. Continue to monitor rhythm 4. Depending on her progress further recommendations will be made Objective - Vital Signs Vital signs: Vital Signs Temp 98.3 F 10/09/23 04:00 Pulse 71 10/09/23 07:00 Resp 26 H 10/09/23 07:00 BP 146/71 10/09/23 07:00 Pulse Ox 99 10/09/23 06:00 FiO2 100 10/06/23 07:59 Intake & Output 10/08/23 10/09/23 10/09/23 18:59 06:59 18:59 Intake Total 1300 1200 Output Total 301 500 Balance 999 700 Weight 86.2 kg Intake: IV 1300 1200 0.9 700 500 Cefepime 2 gm In Sodium 100 200 Chloride 0.9% 100 ml @ 25 mls/hr IVPB Q12H [facility] Rx# :[id number] Vancomycin 1,500 mg In 500 500 Sodium Chloride 0.9% 500 ml 500 ml @ 167 mls/hr IVPB Q16H [facility] Rx#: [id number] Output: Urine 301 500 Other: Voiding Method Bedpan Bedpan # Voids 2 1 # Bowel Movements 1 2 - Labs CBC & Chem 7: 10/09/23 05:45 10/09/23 05:45 Labs: Abnormal Lab Results - Last 24 Hours (Table) 10/08/23 10/08/23 10/09/23 Range/Units 18:28 19:22 05:45 WBC (3.8-10.6) k/uL RBC (3.80-5.40) m/uL Hgb (11.4-16.0) gm/dL Hct (34.0-46.0) % MCHC (31.0-37.0) g/dL RDW (11.5-15.5) % Neutrophils # (1.3-7.7) k/uL Lymphocytes # (1.0-4.8) k/uL ABG pH 7.46 H (7.35-7.45) ABG pCO2 27 L (35-45) mmHg ABG pO2 120 H (83-108) mmHg ABG HCO3 19 L (21-25) mmol/L ABG O2 Saturation 99.3 H (94-97) % Sodium 136 L (137-145) mmol/L Potassium 3.4 L (3.5-5.1) mmol/L Chloride 113 H (98-107) mmol/L Carbon Dioxide 19 L (22-30) mmol/L Creatinine 0.48 L (0.52-1.04) mg/dL POC Glucose (mg/dL) 111 H (70-110) mg/dL Calcium 7.4 L (8.4-10.2) mg/dL 10/09/23 Range/Units 05:45 WBC 12.5 H (3.8-10.6) k/uL RBC 3.40 L (3.80-5.40) m/uL Hgb 8.8 L (11.4-16.0) gm/dL Hct 28.5 L (34.0-46.0) % MCHC 30.9 L (31.0-37.0) g/dL RDW 15.8 H (11.5-15.5) % Neutrophils # 11.0 H (1.3-7.7) k/uL Lymphocytes # 0.5 L (1.0-4.8) k/uL ABG pH (7.35-7.45) ABG pCO2 (35-45) mmHg ABG pO2 (83-108) mmHg ABG HCO3 (21-25) mmol/L ABG O2 Saturation (94-97) % Sodium (137-145) mmol/L Potassium (3.5-5.1) mmol/L Chloride (98-107) mmol/L Carbon Dioxide (22-30) mmol/L Creatinine (0.52-1.04) mg/dL POC Glucose (mg/dL) (70-110) mg/dL Calcium (8.4-10.2) mg/dL Microbiology - Last 24 Hours (Table) 10/07/23 17:58 Blood Culture - Preliminary Blood 10/07/23 07:56 Gram Stain - Preliminary Sputum Sputum Culture - Preliminary Escherichia coli 10/06/23 05:16 Blood Culture - Preliminary Blood 10/06/23 05:01 Blood Culture - Preliminary Blood 10/06/23 18:49 Gram Stain - Preliminary Sputum Sputum Culture - Preliminary Gram Neg Bacilli 10/06/23 18:49 Nasal Screen MRSA/MSSA - Final Nasopharyngeal Swab
--- NOTE | 2023-10-09 07:47 | XR ---
EXAMINATION TYPE: XR chest 1V portable DATE OF EXAM: 10/09/2023 COMPARISON: 10/08/2023 HISTORY: Shortness of breath TECHNIQUE: Frontal and lateral views of the chest are obtained. FINDINGS: Scattered senescent parenchymal changes noted. Hyperinflation compatible with COPD. Patchy infiltrates throughout both lung smith appear to have increased particularly within the right lung. Correlate for underlying pneumonia or aspiration pneumonia. Heart size is stable. Mediastinal structures are stable and grossly unremarkable. No evidence for hilar prominence. Degenerative changes dorsal spine. IMPRESSION: 1. Patchy infiltrates throughout both lung smith appear to have increased particularly within the ri ght lung. Correlate for underlying pneumonia or aspiration pneumonia.
[2023-10-09] MEDS ORDERED: PROPOFOL 10 MG/ML 20 ML VIAL IV ONE (08:19)
[2023-10-09] MEDS ORDERED: LIDOCAINE 1% INJ 10MG/ML (20 ML MDV) ONE (08:19)
[2023-10-09] MEDS: IV FLUID CONTINUATION 1,000 ML IV ONE (08:21)
[2023-10-09] MEDS: LACTATED RINGERS 1,000 ML IV ONE (08:26)
--- NOTE | 2023-10-09 08:38 | P.OP ---
Date of Procedure: 10/09/23 Preoperative Diagnosis: anemia GI bleed Postoperative Diagnosis: antral gastritis Large paraesophageal hiatal hernia Mild esophagitis Procedure(s) Performed: EGD Anesthesia: MAC Surgeon: Yakov Nelson Pathology: other (antrum, esophagus) Condition: stable Disposition: PACU Description of Procedure: the patient's placed on the endoscopy table in the lateral position. She received IV sedation. The gastroscope placed oropharynx passed in the esophagus and into the stomach. Scope some placed through the pylorus. The first and second portion of the duodenum appeared normal. Scope summer back the antrum this. Mildly inflamed. A biopsies performed. Scope was then retroflexed and the remainder the stomach appeared normal. The patient had a large paraesophageal hernia. The hiatal hernia could be seen moving with respiration. The GE junction was at 36 cm. The distal esophagus appeared mildly inflamed. This was biopsied. The proximal esophagus appeared normal. Scope withdrawn for patient.
[2023-10-09] MEDS: FUROSEMIDE 10 MG/ML 4 ML VIAL IV SCH (08:50)
--- NOTE | 2023-10-09 10:43 | P.PN ---
Subjective Progress Note Date: 10/09/23 Principal diagnosis: Acute left lower lobe pneumonia: Community-acquired, although possible aspiration pneumonia is in the differential. This is a 78-year-old female patient who got sick within the past 24 hours. According to the , the patient had an episode of choking on food material at home few days back. Over the past 24 hours, she felt weak, lethargic and she was also having increased congested cough. No history of lung disease. No previous episodes of pneumonia. No previous history of aspiration. Chest x-ray shows an extensive airspace disease in the left lower lobe. Hemodynamically stable. White cell 5.3, normal coagulation profile, BUN is 18 with a creatinine of 0.7. Initial lactic acid level was at 5.2 dropped down to 2.6. The viral screen has been negative. Troponins are negative. LFTs are normal. Electrolytes show a component of non-anion gap metabolic acidosis with a serum bicarb of 19, BUN of 18 with a creatinine of 0.77. The patient is currently on Zosyn and Zithromax. She is currently on oxygen at 5 L with a pulse ox of 95%. She is lethargic and she is able to communicate. Family is at the bedside. Patient was evaluated today on 10/07/2023, feeling much better since admission, breathing a lot easier, chest x-ray is actually showing improvement in her left lower lobe infiltrate continues to have leukocytosis with WBC count of 14.9 hemoglobin is 8.8 electrolytes are normal renal profile is normal, clinically however the patient is feeling better, O2 saturation is 100% on 2 L nasal cannula it was 93% on room air sputum cultures and blood cultures remain negative so far Patient was evaluated today on 10/08/2023, I saw this patient yesterday, and she was doing quite well. She was on 2 L nasal cannula, was not in any distress. However couple of hours after I saw the patient, I was notified by the nurse that her primary care physician is concerned about the patient and she was looking pale she was short of breath, and he recommended immediate transfer to the ICU. I did not get a chance to go and evaluate the patient on the floor again, however based on the insistence of her primary care, I recommended tra nsfer to the ICU, check ABG, and to monitor the patient in the ICU overnight. Shortly after she arrived to the ICU, her pO2 did not seem quite bad, she was relatively hypoxic which is expected considering her pneumonia this was done on 2 L nasal cannula and her ABG showed a pO2 of 43 pCO2 of 3 0 pH of 7.46, remind you patient had extensive pneumonia. In the ICU she was placed on 6 L nasal cannula, she looked very comfortable, she was hemodynamically stable, and in no distress. Hence I kept the patient in the ICU overnight, saw the patient today, she is doing much better, not in any distress, patient had an episode of atrial fibrillation, seen by cardiology, placed on Cardizem, and plan to transition Cardizem to oral instead of IV. Patient did not seem to be in any distress to me, hence I plan to transfer the patient back to the medical floor/3 S. Labs today show WBC of 13.8 hemoglobin of 9, Basic metabolic profile is relatively normal bicarb is 17 BUN is 15 creatinine 0.49 chest x-ray today continues to show extensive left-sided pneumonia involving the left lower lobe, lingula, and to some extent the left upper lobe Patient was evaluated today on 10/09/2023, patient remains in the ICU, patient just came back from EGD which showed mostly erosive gastritis and hiatal hernia. She is on 4 L nasal cannula, hemoglobin today is 8.8, patient remains on vancomycin and cefepime for left lower lobe extensive pneumonia, chest x-ray today is showing evidence of worsening interstitial edema, hence I cut down her IV fluid to KVO, and will give the patient a trial of diuretics/Lasix 40 mg IV push x 1. Clinically the patient seems to feel and to look better than what is noted on the chest x-ray. Echocardiogram on this admission showed good LV function 55 to 60% ejection fraction. Nonetheless the chest x-ray is concerning to me, could be a worsening aspiration pneumonia could also be some interstitial edema, patient does have history of moderate mitral regurgitation which could be a contributing factor to her interstitial edema as noted on the chest x-ray today. Objective - Vital Signs Vital signs: Vital Signs Temp 98.1 F 10/09/23 08:00 Pulse 66 10/09/23 10:00 Resp 20 10/09/23 10:00 BP 140/69 10/09/23 10:00 Pulse Ox 98 10/09/23 09:00 FiO2 100 10/06/23 07:59 Intake & Output 10/08/23 10/09/23 10/09/23 18:59 06:59 18:59 Intake Total 1300 1200 220 Output Total 920 704 8588 Balance 999 700 -805 Weight 86.2 kg Intake: IV 1300 1200 220 0.9 700 500 120 Cefepime 2 gm In Sodium 100 200 Chloride 0.9% 100 ml @ 25 mls/hr IVPB Q12H [facility] Rx# :[id number] Vancomycin 1,500 mg In 500 500 Sodium Chloride 0.9% 500 ml 500 ml @ 167 mls/hr IVPB Q16H [facility] Rx#: [id number] Output: Urine 850 599 0688 Other: Voiding Method Bedpan Bedpan Indwelling Catheter # Voids 2 1 1 # Bowel Movements 1 2 - Exam General: Revealed 78-year-old female in no distress, on 4 L nasal cannula Skin: Skin is warm and dry and no rashes or lesions are noted. Eye: Pupils are equal, round and reactive to light, extra-ocular movements are intact; there is normal conjunctiva bilaterally. Ears, nose, mouth and throat: There are moist mucous membranes and no oral lesions. Neck: The neck is supple, there is no tenderness or JVD. Cardiovascular: There is a regular rate and rhythm. 2/6 systolic murmur at the left lower sternal border Respiratory: Crackles persist bilaterally at the base. Gastrointestinal: Soft, non-distended, non-tender abdomen without masses or organomegaly noted. There is no rebound or guarding present. Bowel sounds are unremarkable. Back: There is no tenderness to palpation in the midline. There is no obvious deformity. Musculoskeletal: Normal ROM, no tenderness, There is no pedal edema. There is no calf tenderness or swelling. No cords were appreciated. Neurological: CN II-XII intact, Cranial nerves III through XII are intact. There are no obvious motor or sensory deficits. Coordination appears grossly intact. Speech is normal. Psychiatric: Cooperative, appropriate mood & affect, normal judgment. - Labs CBC & Chem 7: 10/09/23 05:45 10/09/23 05:45 Labs: Abnormal Lab Results - Last 24 Hours (Table) 10/08/23 10/08/23 10/09/23 Range/Units 18:28 19:22 05:45 WBC (3.8-10.6) k/uL RBC (3.80-5.40) m/uL Hgb (11.4-16.0) gm/dL Hct (34.0-46.0) % MCHC (31.0-37.0) g/dL RDW (11.5-15.5) % Neutrophils # (1.3-7.7) k/uL Lymphocytes # (1.0-4.8) k/uL ABG pH 7.46 H (7.35-7.45) ABG pCO2 27 L (35-45) mmHg ABG pO2 120 H (83-108) mmHg ABG HCO3 19 L (21-25) mmol/L ABG O2 Saturation 99.3 H (94-97) % Sodium 136 L (137-145) mmol/L Potassium 3.4 L (3.5-5.1) mmol/L Chloride 113 H (98-107) mmol/L Carbon Dioxide 19 L (22-30) mmol/L Creatinine 0.48 L (0.52-1.04) mg/dL POC Glucose (mg/dL) 111 H (70-110) mg/dL Calcium 7.4 L (8.4-10.2) mg/dL 10/09/23 Range/Units 05:45 WBC 12.5 H (3.8-10.6) k/uL RBC 3.40 L (3.80-5.40) m/uL Hgb 8.8 L (11.4-16.0) gm/dL Hct 28.5 L (34.0-46.0) % MCHC 30.9 L (31.0-37.0) g/dL RDW 15.8 H (11.5-15.5) % Neutrophils # 11.0 H (1.3-7.7) k/uL Lymphocytes # 0.5 L (1.0-4.8) k/uL ABG pH (7.35-7.45) ABG pCO2 (35-45) mmHg ABG pO2 (83-108) mmHg ABG HCO3 (21-25) mmol/L ABG O2 Saturation (94-97) % Sodium (137-145) mmol/L Potassium (3.5-5.1) mmol/L Chloride (98-107) mmol/L Carbon Dioxide (22-30) mmol/L Creatinine (0.52-1.04) mg/dL POC Glucose (mg/dL) (70-110) mg/dL Calcium (8.4-10.2) mg/dL Microbiology - Last 24 Hours (Table) 10/07/23 07:56 Gram Stain - Final Sputum Sputum Culture - Final Escherichia coli [place] albicans 10/06/23 18:49 Gram Stain - Final Sputum Sputum Culture - Final Escherichia coli 10/07/23 17:58 Blood Culture - Preliminary Blood 10/06/23 05:16 Blood Culture - Preliminary Blood 10/06/23 05:01 Blood Culture - Preliminary Blood 10/06/23 18:49 Nasal Screen MRSA/MSSA - Final Nasopharyngeal Swab Assessment and Plan Assessment: Impression: Acute left lower lobe pneumonia, possible community-acquired pneumonia although based on the clinical history I am suspecting that we may be dealing with an episode of aspiration pneumonia. Acute hypoxic respiratory failure secondary to above History of hiatal hernia Dyslipidemia Degenerative joint disease Chronic neuropathic pain Coffee-ground emesis, secondary to erosive gastritis as noted on EGD New onset atrial fibrillation Moderate mitral regurgitation as noted on echocardiogram Possible acute congestive heart failure, with preserved ejection fraction, Recommendation: Will keep the patient in the ICU for today, 1 more day before transferring to [address] Continue antibiotics Gentle diuresis to be given today and repeat chest x-ray in a.m. Decrease IV fluid to KVO EGD report was noted. Patient had antral gastritis and large paraesophageal hiatal hernia with mild esophagitis Continue bronchodilators continue GI and DVT prophylaxis Will continue to follow-up with Time with Patient: Less than 30
--- NOTE | 2023-10-09 11:55 | P.PN ---
Subjective Progress Note Date: 10/08/23 Principal diagnosis: Reason for follow-up is pneumonia and Patient is a 78-year-old female with a past medical history significant for hyperlipidemia chronic back pain abdomen hernia presenting to the hospital for evaluation of increasing shortness of breath and cough patient has been diagnosed with sepsis secondary pneumonia and admitted to hospital. On today's evaluation that is 10/08/2023, Patient did have resolution of her fever and is afebrile today, patient is currently on 3 L nasal cannula oxygen and denies having any shortness of breath, the patient denies any chest pain or worsening cough, the patient denies any nausea vomiting did not have any abdomin al pain and no diarrhea Patient white count is 13.8 creatinine 0.49 Objective - Vital Signs Vital signs: Vital Signs Temp 98.0 F 10/08/23 08:00 Pulse 80 10/08/23 13:18 Resp 20 10/08/23 11:00 BP 128/73 10/08/23 11:00 Pulse Ox 99 10/08/23 09:23 FiO2 100 10/06/23 07:59 Intake & Output 10/07/23 10/08/23 10/08/23 18:59 06:59 18:59 Intake Total 1060 1950 300 Output Total 500 850 1 Balance 560 1100 299 Weight 84.005 kg Intake: IV 100 1200 300 0.9 100 1200 300 Intake, IV Titration 500 Amount Vancomycin 1,500 mg In 500 Sodium Chloride 0.9% 500 ml 500 ml @ 167 mls/hr IVPB Q16H [facility] Rx#: [id number] Oral 960 250 Output: Urine 500 850 1 Other: Voiding Method Toilet External Catheter Bedpan # Voids 1 # Bowel Movements 1 1 - Exam GENERAL DESCRIPTION: An elderly female lying in bed in no distress RESPIRATORY SYSTEM: Unlabored breathing , decreased breath sounds at bases HEART: S1 S2 regular rate and rhythm , ABDOMEN: Soft , no tenderness EXTREMITIES: No edema feet - Labs CBC & Chem 7: 10/09/23 05:45 10/09/23 05:45 Labs: Abnormal Lab Results - Last 24 Hours (Table) 10/07/23 10/07/23 10/08/23 Range/Units 16:36 17:20 05:33 WBC 13.8 H (3.8-10.6) k/uL RBC 3.43 L (3.80-5.40) m/uL Hgb 9.0 L (11.4-16.0) gm/dL Hct 28.8 L (34.0-46.0) % RDW 16.0 H (11.5-15.5) % Plt Count 131 L (150-450) k/uL Neutrophils # 12.3 H (1.3-7.7) k/uL Lymphocytes # 0.7 L (1.0-4.8) k/uL ABG pH 7.46 H (7.35-7.45) ABG pCO2 30 L (35-45) mmHg ABG pO2 43 L* (83-108) mmHg ABG O2 Saturation 83.0 L (94-97) % Sodium (137-145) mmol/L Chloride (98-107) mmol/L Carbon Dioxide (22-30) mmol/L Creatinine (0.52-1.04) mg/dL POC Glucose (mg/dL) 136 H (70-110) mg/dL Calcium (8.4-10.2) mg/dL AST (14-36) U/L Total Protein (6.3-8.2) g/dL Albumin (3.5-5.0) g/dL 10/08/23 Range/Units 05:33 WBC (3.8-10.6) k/uL RBC (3.80-5.40) m/uL Hgb (11.4-16.0) gm/dL Hct (34.0-46.0) % RDW (11.5-15.5) % Plt Count (150-450) k/uL Neutrophils # (1.3-7.7) k/uL Lymphocytes # (1.0-4.8) k/uL ABG pH (7.35-7.45) ABG pCO2 (35-45) mmHg ABG pO2 (83-108) mmHg ABG O2 Saturation (94-97) % Sodium 135 L (137-145) mmol/L Chloride 112 H (98-107) mmol/L Carbon Dioxide 17 L (22-30) mmol/L Creatinine 0.49 L (0.52-1.04) mg/dL POC Glucose (mg/dL) (70-110) mg/dL Calcium 7.5 L (8.4-10.2) mg/dL AST 40 H (14-36) U/L Total Protein 4.7 L (6.3-8.2) g/dL Albumin 2.7 L (3.5-5.0) g/dL Microbiology - Last 24 Hours (Table) 10/06/23 05:16 Blood Culture - Preliminary Blood 10/06/23 05:01 Blood Culture - Preliminary Blood 10/06/23 18:49 Gram Stain - Preliminary Sputum Sputum Culture - Preliminary Gram Neg Bacilli 10/06/23 18:49 Nasal Screen MRSA/MSSA - Final Nasopharyngeal Swab 10/07/23 07:56 Gram Stain - Preliminary Sputum Assessment and Plan (1) Leukocytosis Current Visit: Yes Status: Acute Code(s): D72.829 - ELEVATED WHITE BLOOD CELL COUNT, UNSPECIFIED SNOMED Code(s): 927510424 (2) Pneumonia Current Visit: Yes Status: Acute Code(s): J18.9 - PNEUMONIA, UNSPECIFIED ORGANISM SNOMED Code(s): 883764116 Plan: 1patient presented to hospital with sepsis in this patient who did have a fever tachycardia elevated lactic acid source likely pneumonia with a question of community-acquired versus resistant gram-negative/gram-positive pathogen 2-did have elevated procalcitonin of 22 blood and sputum cultures currently pending 3-patient did have some pending improvement and will continue with the vancomycin and cefepime while waiting for the culture to finalize Dictation was produced using [employer] dictation software. please excuse any grammatical, word or spelling errors. Time with Patient: Less than 30
--- NOTE | 2023-10-09 11:56 | P.PN ---
Subjective Progress Note Date: 10/09/23 Principal diagnosis: Reason for follow-up is pneumonia and Patient is a 78-year-old female with a past medical history significant for hyperlipidemia chronic back pain abdomen hernia presenting to the hospital for evaluation of increasing shortness of breath and cough patient has been diagnosed with sepsis secondary pneumonia and admitted to hospital. On today's evaluation that is 10/09/2023, patient has been afebrile, patient is breathing comfortably and is currently on 2 L nasal cannula oxygen patient denies having any significant cough no chest pain shortness of breath, patient denies nausea vomiting or diarrhea and no abdominal pain. Patient white count of 12.5 creatinine 0.48 sputum culture with E. coli that is a sensitive pathogen blood culture negative Objective - Vital Signs Vital signs: Vital Signs Temp 98.1 F 10/09/23 08:00 Pulse 76 10/09/23 09:00 Resp 17 10/09/23 09:00 BP 140/69 10/09/23 09:00 Pulse Ox 98 10/09/23 09:00 FiO2 100 10/06/23 07:59 Intake & Output 10/08/23 10/09/23 10/09/23 18:59 06:59 18:59 Intake Total 1300 1200 200 Output Total 301 500 300 Balance 999 700 -100 Weight 86.2 kg Intake: IV 1300 1200 200 0.9 700 500 100 Cefepime 2 gm In Sodium 100 200 Chloride 0.9% 100 ml @ 25 mls/hr IVPB Q12H [facility] Rx# :[id number] Vancomycin 1,500 mg In 500 500 Sodium Chloride 0.9% 500 ml 500 ml @ 167 mls/hr IVPB Q16H [facility] Rx#: [id number] Output: Urine 301 500 300 Other: Voiding Method Bedpan Bedpan Indwelling Catheter # Voids 2 1 1 # Bowel Movements 1 2 - Exam GENERAL DESCRIPTION: An elderly female lying in bed in no distress RESPIRATORY SYSTEM: Unlabored breathing , decreased breath sounds at bases HEART: S1 S2 regular rate and rhythm , ABDOMEN: Soft , no tenderness EXTREMITIES: No edema feet - Labs CBC & Chem 7: 10/09/23 05:45 10/09/23 05:45 Labs: Abnormal Lab Results - Last 24 Hours (Table) 10/08/23 10/08/23 10/09/23 Range/Units 18:28 19:22 05:45 WBC (3.8-10.6) k/uL RBC (3.80-5.40) m/uL Hgb (11.4-16.0) gm/dL Hct (34.0-46.0) % MCHC (31.0-37.0) g/dL RDW (11.5-15.5) % Neutrophils # (1.3-7.7) k/uL Lymphocytes # (1.0-4.8) k/uL ABG pH 7.46 H (7.35-7.45) ABG pCO2 27 L (35-45) mmHg ABG pO2 120 H (83-108) mmHg ABG HCO3 19 L (21-25) mmol/L ABG O2 Saturation 99.3 H (94-97) % Sodium 136 L (137-145) mmol/L Potassium 3.4 L (3.5-5.1) mmol/L Chloride 113 H (98-107) mmol/L Carbon Dioxide 19 L (22-30) mmol/L Creatinine 0.48 L (0.52-1.04) mg/dL POC Glucose (mg/dL) 111 H (70-110) mg/dL Calcium 7.4 L (8.4-10.2) mg/dL 10/09/23 Range/Units 05:45 WBC 12.5 H (3.8-10.6) k/uL RBC 3.40 L (3.80-5.40) m/uL Hgb 8.8 L (11.4-16.0) gm/dL Hct 28.5 L (34.0-46.0) % MCHC 30.9 L (31.0-37.0) g/dL RDW 15.8 H (11.5-15.5) % Neutrophils # 11.0 H (1.3-7.7) k/uL Lymphocytes # 0.5 L (1.0-4.8) k/uL ABG pH (7.35-7.45) ABG pCO2 (35-45) mmHg ABG pO2 (83-108) mmHg ABG HCO3 (21-25) mmol/L ABG O2 Saturation (94-97) % Sodium (137-145) mmol/L Potassium (3.5-5.1) mmol/L Chloride (98-107) mmol/L Carbon Dioxide (22-30) mmol/L Creatinine (0.52-1.04) mg/dL POC Glucose (mg/dL) (70-110) mg/dL Calcium (8.4-10.2) mg/dL Microbiology - Last 24 Hours (Table) 10/07/23 07:56 Gram Stain - Final Sputum Sputum Culture - Final Escherichia coli Kanchan albicans 10/06/23 18:49 Gram Stain - Final Sputum Sputum Culture - Final Escherichia coli 10/07/23 17:58 Blood Culture - Preliminary Blood 10/06/23 05:16 Blood Culture - Preliminary Blood 10/06/23 05:01 Blood Culture - Preliminary Blood 10/06/23 18:49 Nasal Screen MRSA/MSSA - Final Nasopharyngeal Swab Assessment and Plan (1) Leukocytosis Current Visit: Yes Status: Acute Code(s): D72.829 - ELEVATED WHITE BLOOD CELL COUNT, UNSPECIFIED SNOMED Code(s): 917508184 (2) Pneumonia Current Visit: Yes Status: Acute Code(s): J18.9 - PNEUMONIA, UNSPECIFIED ORGANISM SNOMED Code(s): 143706756 Plan: 1patient presented to hospital with sepsis in this patient who did have a fever tachycardia elevated lactic acid source likely pneumonia with a question of community-acquired versus resistant gram-negative/gram-positive pathogen 2-did have elevated procalcitonin of 22 blood and sputum cultures currently growing E. coli it is a sensitive pathogen 3-keeping in mind patient did have large paraesophageal hernia with E. coli growing in the sputum question of aspiration etiology we will discontinue vancomycin and cefepime start the patient on Unasyn Dictation was produced using [employer] dictation software. please excuse any grammatical, word or spelling errors. Time with Patient: Less than 30
[2023-10-09] MEDS: AMPICILLIN-SULBACTAM 3 GM in SODIUM CHLORIDE 0.9% 100 ML IVPB SCH (12:13)
--- NOTE | 2023-10-09 13:08 | P.PN ---
Subjective Progress Note Date: 10/09/23 CHIEF COMPLAINT: Pneumonia HISTORY OF PRESENT ILLNESS: Patient mikael in the ICU. Surgical service consul kathryn for GI bleed. Patient had 1 episode of black emesis. Patient stools have been brown. She has had no further vomiting. Hemoglobin 8.8. She had EGD completed today with results reporting antral gastritis, large paraesophageal hiatal hernia and mild esophagitis. PHYSICAL EXAM: VITAL SIGNS: Reviewed. GENERAL: Well-developed in no acute distress. ABDOMEN: Soft. Nondistended. NEUROLOGIC: Alert and oriented. Cranial nerves II through XII grossly intact. ASSESSMENT: 1. Acute upper GI bleed with anemia and 1 episode of coffee-ground emesis status post EGD revealing antral gastritis, large paraesophageal hiatal hernia and mild esophagitis PLAN: -Dr. Nelson recommends hiatal hernia repair outpatient when patient is feeling better -Continue IV Protonix -Resume regular diet -Continue to monitor hemoglobin Physician Rail Car [employer]ic note has been reviewed by physician. Signing provider agrees with the documented findings, assessment, and plan of care. Objective - Vital Signs Vital signs: Vital Signs Temp 98.3 F 10/09/23 12:00 Pulse 71 10/09/23 12:00 Resp 16 10/09/23 12:00 BP 134/61 10/09/23 12:00 Pulse Ox 97 10/09/23 12:00 FiO2 100 10/06/23 07:59 Intake & Output 10/08/23 10/09/23 10/09/23 18:59 06:59 18:59 Intake Total 1300 1200 340 Output Total 048 506 2612 Balance 999 700 -2210 Weight 86.2 kg Intake: IV 1300 1200 340 0.9 700 500 140 Cefepime 2 gm In Sodium 100 200 Chloride 0.9% 100 ml @ 25 mls/hr IVPB Q12H [facility] Rx# :[id number] Cefepime 2 gm In Sodium 100 Chloride 0.9% 100 ml @ 25 mls/hr IVPB Q8H [facility] Rx#: [id number] Vancomycin 1,500 mg In 500 500 Sodium Chloride 0.9% 500 ml 500 ml @ 167 mls/hr IVPB Q16H [facility] Rx#: [id number] Output: Urine 315 705 5865 Other: Voiding Method Bedpan Bedpan Indwelling Catheter # Voids 2 1 1 # Bowel Movements 1 2 - Labs CBC & Chem 7: 10/09/23 05:45 10/09/23 05:45 Labs: Abnormal Lab Results - Last 24 Hours (Table) 10/08/23 10/08/23 10/09/23 Range/Units 18:28 19:22 05:45 WBC (3.8-10.6) k/uL RBC (3.80-5.40) m/uL Hgb (11.4-16.0) gm/dL Hct (34.0-46.0) % MCHC (31.0-37.0) g/dL RDW (11.5-15.5) % Neutrophils # (1.3-7.7) k/uL Lymphocytes # (1.0-4.8) k/uL ABG pH 7.46 H (7.35-7.45) ABG pCO2 27 L (35-45) mmHg ABG pO2 120 H (83-108) mmHg ABG HCO3 19 L (21-25) mmol/L ABG O2 Saturation 99.3 H (94-97) % Sodium 136 L (137-145) mmol/L Potassium 3.4 L (3.5-5.1) mmol/L Chloride 113 H (98-107) mmol/L Carbon Dioxide 19 L (22-30) mmol/L Creatinine 0.48 L (0.52-1.04) mg/dL POC Glucose (mg/dL) 111 H (70-110) mg/dL Calcium 7.4 L (8.4-10.2) mg/dL 10/09/23 Range/Units 05:45 WBC 12.5 H (3.8-10.6) k/uL RBC 3.40 L (3.80-5.40) m/uL Hgb 8.8 L (11.4-16.0) gm/dL Hct 28.5 L (34.0-46.0) % MCHC 30.9 L (31.0-37.0) g/dL RDW 15.8 H (11.5-15.5) % Neutrophils # 11.0 H (1.3-7.7) k/uL Lymphocytes # 0.5 L (1.0-4.8) k/uL ABG pH (7.35-7.45) ABG pCO2 (35-45) mmHg ABG pO2 (83-108) mmHg ABG HCO3 (21-25) mmol/L ABG O2 Saturation (94-97) % Sodium (137-145) mmol/L Potassium (3.5-5.1) mmol/L Chloride (98-107) mmol/L Carbon Dioxide (22-30) mmol/L Creatinine (0.52-1.04) mg/dL POC Glucose (mg/dL) (70-110) mg/dL Calcium (8.4-10.2) mg/dL Microbiology - Last 24 Hours (Table) 10/06/23 05:16 Blood Culture - Preliminary Blood 10/06/23 05:01 Blood Culture - Preliminary Blood 10/07/23 07:56 Gram Stain - Final Sputum Sputum Culture - Final Escherichia coli Kanchan albicans 10/06/23 18:49 Gram Stain - Final Sputum Sputum Culture - Final Escherichia coli 10/07/23 17:58 Blood Culture - Preliminary Blood 10/06/23 18:49 Nasal Screen MRSA/MSSA - Final Nasopharyngeal Swab
[2023-10-09] MEDS: POTASSIUM CHLORIDE ER 20 MEQ TAB.ER PO SCH ×2 (13:54→21:27)
--- NOTE | 2023-10-09 15:16 | P.PN ---
Subjective Progress Note Date: 10/09/23 HISTORY OF PRESENT ILLNESS: This is an 78 -year-old female with a previous medical history sign ificant for hyperlipidemia, GERD with esophagitis, osteoarthritis, patient was in her usual state of health till about 2 days ago when she had a coughing episode while she was eating, according to her she probably choked on her food, and she was complaining of some indigestion at that time, patient felt better after few hours, and last night she was having fever and chills and she was coughing quite a bit of phlegm associated with increased sore throat, so she was brought into the emergency department at [facility] today because of shortness of breath, and because is not feeling good, she appeared to be quite drowsy, she denies any sick contact, she denies any diarrhea, she did have 1 episode of vomiting, she does cough up some black stuff, she did receive Pepto- Bismol from her earlier yesterday, patient was seen and evaluated in the emergency department, she was in respiratory distress, she did have lactic acidosis with a lactic acid of 5.6, she was given IV fluid resuscitation, her chest x-ray showed significant pneumonia in the left side involving the upper lobe and lower lobe, patient was started on oxygen at 4 L nasal cannula, her oxygen saturation was around 95%, patient appears to be breathing shallower, pulmonary consultation was obtained from Dr. Peng, patient did receive Zithromax as well as Zosyn in the ER, she will need to be admitted to the hospital for further evaluation recommendation she will be started nebulized treatment in the form of Albuterol 3ml nebulization 4 times every day, also she will be started on Mucinex 600 mg orally twice every day, she will have sputum culture, we will check urine Legionella antigen, mycoplasma antibody IgG and IgM, I will broaden the antibiotic to rule out any MRSA pneumonia started on vancomycin 1000 mg x 1 and pharmacy to dose its peak and trough, and as stated earlier pulmonary consultation for further evaluation and recommendation for possible ICU care, I will consult infectious disease as well Dr. Mo. 10/06: Patient continues to be somewhat short of breath, she continues to be on o xygen support, she appears to be pale, she appears to be confused, she appears in severe sepsis, I have asked the nursing staff to order blood gases, and lactic acid, she will be transferred to the intensive care unit for further evaluation and recommendation, continue IV fluid resuscitation, continue patient on IV antibiotic in the form of vancomycin as well as cefepime per infectious disease recommendation, we will continue to monitor the patient very closely, I believe the patient will end up on the ventilator due to her altered level of consciousness. 10/07: Patient is laying down in bed in no apparent distress, yesterday she went into atrial fibrillation with rapid ventricular response, she initially was started on a Cardizem drip, and after that she was converted back to sinus rhythm, she was seen in consultation by cardiology, she will be started on Eliquis 5 mg orally twice every day for stroke prevention, patient is at 3 L nasal cannula, her oxygen saturation 98%, she is doing better, chest x-ray appears worse, online trader recommended for the patient to be transferred to the telemetry unit at this time, patient appears in better spirits today, will continue current treatment plan, continue the patient on IV antibiotic in the form of vancomycin as well as cefepime, infectious and pulmonary medicine are following. 10/08: Patient underwent EGD today by Dr. Nelson showed mild gastritis, no evidence of any active gastric bleed at this time, her hemoglobin is stable at t his time, will continue to hold Eliquis for another 24 hours, restarted back tomorrow morning, patient has been in sinus rhythm at this point in time, she denies any chest pain, she continues to have some coughing minimal from production, sputum cultures positive for E. coli, she was switched to Unasyn per infectious disease she was taken on vancomycin as well as cefepime, will continue to monitor the patient very closely, she will be kept in the ICU for another 24 hours, patient has been on 2 L nasal cannula, will continue with that continue with aggressive pulmonary toileting as well REVIEW OF SYSTEMS: Constitutional: positive for fever, positive for chills, no night sweats. No weight change. positive for weakness, positive for fatigue and lethargy lethargy. No daytime sleepiness. HEENT: No headache. No blurred vision or double vision, no loss of vision. No loss of Hearing, no ringing in the ears, no dizziness. No nasal drainage or congestion. No epistaxis. No sore throat. Lungs: positive for shortness of breath, positive for coughing , positive for sputum production. No wheezing. Reports dyspnea with activity. Cardiovascular: No chest pain, no lower extremity edema. No palpitations. No paroxysmal nocturnal dyspnea. No orthopnea. No lightheadedness or dizziness. No syncopal episodes. Abdominal: Reports no abdominal pain. No nausea, vomiting. No diarrhea. No constipation. No bloody or tarry stools reports loss of appetite. Genitourinary: No dysuria, increased frequency, urgency. No urinary retention. Musculoskeletal: No myalgias. No muscle weakness, no gait dysfunction, no frequent falls. positive for back pain. No neck pain, positive for left hip pain Integumentary: No wounds, no lesions. No rash or pruritus. No unusual bruising. No change in hair or nails. Neurologic: No aphasia. No facial droop. positive for change in mentation. No head injury. No headache. No paralysis. No paresthesia. Psychiatric: No depression. No anxiety. No mood swings. Endocrine: No abnormal blood sugars. No weight change. PHYSICAL EXAMINATION: General: 78-year-old female laying down in bed in respiratory distress. HEENT: Head is atraumatic, normocephalic, pupils were equal round reactive to light and recommendation, extraocular muscle movement were intact, sclera nonicteric, conjunctivae were pale, mucous membranes of the mouth are somewhat dry. Neck: Supple, no JVP, normal carotid upstroke bilaterally, no lymphadenopathy. Chest: Decreased breath sounds at the bases, few rhonchi, positive for egophony to the left lung, positive for rapid shallow breathing, positive for minimal intercostal retractions. Heart: First heart sound is normal, second heart sounds normal there is DARREN 2/6 located at the left sternal border Abdomen: Soft, nontender, nondistended, positive bowel sounds. Extremities: There is no edema no calf tenderness DP +2 bilaterally Neurologic examination: Patient is stuporous, opens her eyes in response to v erbal stimuli, she is moving all her extremities, but appears to have metabolic encephalopathy likely to underlying sepsis. ASSESSMENT AND PLAN: 1. Acute hypoxemic respiratory failure due to multilobar left sided pneumonia with E. coli likely aspiration pneumonia. Continue patient on Unasyn 3 g IV piggyback every 6 hours, monitor the patient oxygen continue 2 L nasal cannula, continue otherwise treatment [id number], continue current treatment in the intensive care unit, patient will be kept in ICU for another 24 hours. 2. Lactic acidosis likely due to pneumonia with severe sepsis. Lactic acid is back to normal. 3. Metabolic encephalopathy due to severe sepsis due to underlying pneumonia. She is back to normal patient was started back on her gabapentin 300 mg orally 3 times every day. 4. Atrial fibrillation with rapid ventricle response back to sinus rhythm continue with Cardizem 30 mg orally 3 times every day, start the patient on Eliquis 5 mg orally twice every day tomorrow morning. 5. Coffee-ground emesis with acute symptomatic anemia. Status post EGD that showed mild gastritis, post biopsies. No evidence of active bleeding. Continue Protonix restart Eliquis tomorrow morning. 6. Hyperlipidemia. Continue patient on atorvastatin 40 mg once every day, m onitor the patient with a panel keep the patient LDL 55-70. 7. Anxiety/depressive disorder. Continue patient on Lexapro 5 mg orally once every day. 8. Vitamin D deficiency. Continue vitamin D supplement. 9. Osteoarthritis. Continue current pain management. 10. GERD with hiatal hernia. Continue patient on Protonix 40 mg IV push every 12 hours, discontinue famotidine. 11. Spondylosis of the lumbar spine. Patient was started back on her gabapentin 300 mg orally 3 times every day. 12. DVT prophylaxis. Continue Lovenox for now 40 mg subcutaneous every 24 hours. 13. GI prophylaxis. Continue Protonix 40 mg IV push every 12 hours. 14. Transfer the patient to a telemetry unit tomorrow morning. 15. Guarded prognosis. Objective - Vital Signs Vital signs: Vital Signs Temp 98.3 F 10/09/23 12:00 Pulse 71 10/09/23 12:00 Resp 16 10/09/23 12:00 BP 134/61 10/09/23 12:00 Pulse Ox 97 10/09/23 12:00 FiO2 100 10/06/23 07:59 Intake & Output 10/08/23 10/09/23 10/09/23 18:59 06:59 18:59 Intake Total 1300 1200 340 Output Total 918 771 6697 Balance 999 700 -2210 Weight 86.2 kg Intake: IV 1300 1200 340 0.9 700 500 140 Cefepime 2 gm In Sodium 100 200 Chloride 0.9% 100 ml @ 25 mls/hr IVPB Q12H [facility] Rx# :[id number] Cefepime 2 gm In Sodium 100 Chloride 0.9% 100 ml @ 25 mls/hr IVPB Q8H [facility] Rx#: [id number] Vancomycin 1,500 mg In 500 500 Sodium Chloride 0.9% 500 ml 500 ml @ 167 mls/hr IVPB Q16H [facility] Rx#: [id number] Output: Urine 913 [id number] Other: Voiding Method Bedpan Bedpan Indwelling Catheter # Voids 2 1 1 # Bowel Movements 1 2 - Labs CBC & Chem 7: 10/09/23 05:45 10/09/23 12:38 Labs: Abnormal Lab Results - Last 24 Hours (Table) 10/08/23 10/08/23 10/09/23 Range/Units 18:28 19:22 05:45 WBC (3.8-10.6) k/uL RBC (3.80-5.40) m/uL Hgb (11.4-16.0) gm/dL Hct (34.0-46.0) % MCHC (31.0-37.0) g/dL RDW (11.5-15.5) % Neutrophils # (1.3-7.7) k/uL Lymphocytes # (1.0-4.8) k/uL ABG pH 7.46 H (7.35-7.45) ABG pCO2 27 L (35-45) mmHg ABG pO2 120 H (83-108) mmHg ABG HCO3 19 L (21-25) mmol/L ABG O2 Saturation 99.3 H (94-97) % Sodium 136 L (137-145) mmol/L Potassium 3.4 L (3.5-5.1) mmol/L Chloride 113 H (98-107) mmol/L Carbon Dioxide 19 L (22-30) mmol/L Creatinine 0.48 L (0.52-1.04) mg/dL POC Glucose (mg/dL) 111 H (70-110) mg/dL Calcium 7.4 L (8.4-10.2) mg/dL 10/09/23 10/09/23 Range/Units 05:45 12:38 WBC 12.5 H (3.8-10.6) k/uL RBC 3.40 L (3.80-5.40) m/uL Hgb 8.8 L (11.4-16.0) gm/dL Hct 28.5 L (34.0-46.0) % MCHC 30.9 L (31.0-37.0) g/dL RDW 15.8 H (11.5-15.5) % Neutrophils # 11.0 H (1.3-7.7) k/uL Lymphocytes # 0.5 L (1.0-4.8) k/uL ABG pH (7.35-7.45) ABG pCO2 (35-45) mmHg ABG pO2 (83-108) mmHg ABG HCO3 (21-25) mmol/L ABG O2 Saturation (94-97) % Sodium (137-145) mmol/L Potassium 3.3 L (3.5-5.1) mmol/L Chloride (98-107) mmol/L Carbon Dioxide (22-30) mmol/L Creatinine (0.52-1.04) mg/dL POC Glucose (mg/dL) (70-110) mg/dL Calcium (8.4-10.2) mg/dL Microbiology - Last 24 Hours (Table) 10/06/23 05:16 Blood Culture - Preliminary Blood 10/06/23 05:01 Blood Culture - Preliminary Blood 10/07/23 07:56 Gram Stain - Final Sputum Sputum Culture - Final Escherichia coli Kanchan albicans 10/06/23 18:49 Gram Stain - Final Sputum Sputum Culture - Final Escherichia coli 10/07/23 17:58 Blood Culture - Preliminary Blood
[2023-10-09] MEDS: NYSTATIN 100,000 UNIT/ML SUSP 500,000 UNIT/5 ML CUP PO SCH (18:21)
[2023-10-09] MEDS ORDERED: Potassium Replacement Protocol 1 EACH MISC MISCELLANE PRN (21:08)
[2023-10-10 03:56] LABS: Basophils % (A) 0 %; Eosinophils # (A) 0.2 k/uL (0-0.7); Eosinophils % (A) 2 %; HCT 27.8 % (34.0-46.0); HGB 8.5 gm/dL (11.4-16.0); Hypochromasia Moderate; Lymphocytes # (A) 0.9 k/uL (1.0-4.8); Lymphocytes % (A) 9 %; MCH 25.4 pg (25.0-35.0); MCHC 30.5 g/dL (31.0-37.0); MCV 83.2 fL (80.0-100.0); Mean Platelet Volume 9.3; Monocytes # (A) 0.8 k/uL (0-1.0); Monocytes % (A) 8 %; Neutrophils # (A) 7.8 k/uL (1.3-7.7); Neutrophils % (A) 79 %; Platelet Count 210 k/uL (150-450); RBC 3.35 m/uL (3.80-5.40); RDW 15.7 % (11.5-15.5); WBC 9.9 k/uL (3.8-10.6)
[2023-10-10 04:33] LABS: ALT 25 U/L (4-34); AST 31 U/L (14-36); African American GFR (CKD) >90 (>60 ml/min/1.73 sqM); Albumin 2.7 g/dL (3.5-5.0); Alkaline Phosphatase 75 U/L (38-126); Anion Gap 3 mmol/L; Blood Urea Nitrogen 11 mg/dL (7-17); Calcium 7.8 mg/dL (8.4-10.2); Carbon Dioxide 24 mmol/L (22-30); Chloride 107 mmol/L (98-107); Glucose 92 mg/dL (74-99); Non-African American GFR(CKD) 86 (>60 ml/min/1.73 sqM); Potassium 3.5 mmol/L (3.5-5.1); Sodium 134 mmol/L (137-145); Total Bilirubin 0.8 mg/dL (0.2-1.3); Total Protein 4.8 g/dL (6.3-8.2)
[2023-10-10] MEDS ORDERED: Potassium Replacement Protocol 1 EACH MISC MISCELLANE PRN (05:22)
[2023-10-10] MEDS: POTASSIUM CHLORIDE ER 20 MEQ TAB.ER PO SCH (06:28)
--- NOTE | 2023-10-10 07:27 | P.PN ---
Subjective Progress Note Date: 10/10/23 PROGRESS NOTE The patient is an 78-year-old female with no prior documented history of CAD who presented with symptoms of cough, aspiration pneumonia and weakness. She was transferred to the ICU and had atrial fibrillation with episodes of rapid ventricular response. She is not aware of the arrhythmia. She has no prior cardiac history. She has fractured her hip about a year ago but prior to that has been active without any symptoms of chest discomfort or dyspnea. She denies any history of dizziness, palpitations or syncope. Her breathing is better. She denies any significant peripheral edema, no PND or orthopnea. She was started on IV Cardizem. On admission she was lethargic but appears to be awake and alert today with no complaints. She is a non-smoker, she has a history of hyperlipidemia. October 08: The patient is feeling well this morning, she feels tired but otherwise has no chest discomfort. She continues to be in sinus mechanism. She continues to have dyspnea and some cough. She had upper GI bleeding and she is scheduled to undergo endoscopy. She had no further episodes of atrial fibrillation. Her echocardiogram revealed a preserved systolic function with moderate mitral regurgitation. Her urinary output has been good. October 09: The patient is feeling better today. She underwent upper endoscopy yesterday and was found to have a hiatal hernia but no active bleeding. She has not had any further episodes of GI bleeding. Hemodynamically she is stable. She is in sinus mechanism with no further atrial fibrillation. Her urinary output has been good. She is on no vasopressors. She is afebrile. She is laying supine. Medications: Aspirin, Lipitor 40 mg daily, Unasyn, diltiazem 30 mg p.o. 3 times daily, Neurontin, Protonix, Lasix 40 mg IV every 12 hours PHYSICAL EXAMINATION: Blood pressure 116/60 heart rate 72 LUNGS: Bibasilar crackles more on the left side HEART: Regular rate and rhythm, S1, S2. No S3. Systolic ejection murmur ABDOMEN: Soft, nontender, no organomegaly EXTREMETIES: No edema LAB: BUN 11, creatinine 0.61, hemoglobin 8.5, white blood cell 9.9. IMPRESSION: 1. Aspiration pneumonia with hypoxemia, improving 2. Paroxysmal atrial fibrillation, back in sinus mechanism 3. GI bleeding, stable no evidence of acute bleeding 4. History of hyperlipidemia PLAN: 1. Restart Eliquis when acceptable by surgery 2. Continue oral Cardizem 3. Continue to monitor rhythm and increase physical activity 4. Depending on her progress further recommendations will be made Objective - Vital Signs Vital signs: Vital Signs Temp 98.4 F 10/10/23 04:00 Pulse 72 10/10/23 07:00 Resp 20 10/10/23 07:00 BP 116/53 10/10/23 07:00 Pulse Ox 97 10/10/23 07:00 FiO2 100 10/06/23 07:59 Intake & Output 10/09/23 10/10/23 10/10/23 18:59 06:59 18:59 Intake Total 1600 1520 10 Output Total 3300 2930 150 Balance -1700 -1410 -140 Weight 79.7 kg Intake: IV 600 320 10 0.9 200 120 10 Ampicillin-Sulbactam 3 gm 200 200 In Sodium Chloride 0.9% 100 ml @ 200 mls/hr IVPB Q6HR [facility] Rx#:[id number] Cefepime 2 gm In Sodium 100 Chloride 0.9% 100 ml @ 25 mls/hr IVPB Q8H [facility] Rx#: [id number] Oral 1000 1200 Output: Urine 3300 2930 150 Other: Voiding Method Indwelling Catheter Indwelling Catheter # Voids 1 - Labs CBC & Chem 7: 10/10/23 03:31 10/10/23 03:31 Labs: Abnormal Lab Results - Last 24 Hours (Table) 10/09/23 10/10/23 10/10/23 Range/Units 12:38 03:31 03:31 RBC 3.35 L (3.80-5.40) m/uL Hgb 8.5 L (11.4-16.0) gm/dL Hct 27.8 L (34.0-46.0) % MCHC 30.5 L (31.0-37.0) g/dL RDW 15.7 H (11.5-15.5) % Neutrophils # 7.8 H (1.3-7.7) k/uL Lymphocytes # 0.9 L (1.0-4.8) k/uL Sodium 134 L (137-145) mmol/L Potassium 3.3 L (3.5-5.1) mmol/L Calcium 7.8 L (8.4-10.2) mg/dL Total Protein 4.8 L (6.3-8.2) g/dL Albumin 2.7 L (3.5-5.0) g/dL Microbiology - Last 24 Hours (Table) 10/07/23 17:58 Blood Culture - Preliminary Blood 10/06/23 05:16 Blood Culture - Preliminary Blood 10/06/23 05:01 Blood Culture - Preliminary Blood 10/07/23 07:56 Gram Stain - Final Sputum Sputum Culture - Final Escherichia coli Kanchan albicans 10/06/23 18:49 Gram Stain - Final Sputum Sputum Culture - Final Escherichia coli
--- NOTE | 2023-10-10 07:44 | XR ---
EXAMINATION TYPE: XR chest 1V portable DATE OF EXAM: 10/10/2023 HISTORY: Shortness of breath. COMPARISON: 10/09/2023 TECHNIQUE: Single view of the chest is submitted. FINDINGS: Demonstrated are scattered senescent parenchymal change. Patchy perihilar and basilar infiltrates left greater than right remain stable. The heart is stable. Hilar and mediastinal structures are within normal limits. Degenerative changes are seen of the dorsal spine. IMPRESSION: 1. Patchy perihilar and basilar infiltrates left greater than right remain stable.
[2023-10-10] MEDS: FUROSEMIDE 10 MG/ML 4 ML VIAL IV SCH (08:28)
--- NOTE | 2023-10-10 12:36 | P.PN ---
Subjective Progress Note Date: 10/10/23 Principal diagnosis: Acute left lower lobe pneumonia: Community-acquired, although possible aspiration pneumonia is in the differential. This is a 78-year-old female patient who got sick within the past 24 hours. According to the , the patient had an episode of choking on food material at home few days back. Over the past 24 hours, she felt weak, lethargic and she was also having increased congested cough. No history of lung disease. No previous episodes of pneumonia. No previous history of aspiration. Chest x-ray shows an extensive airspace disease in the left lower lobe. Hemodynamically stable. White cell 5.3, normal coagulation profile, BUN is 18 with a creatinine of 0.7. Initial lactic acid level was at 5.2 dropped down to 2.6. The viral screen has been negative. Troponins are negative. LFTs are normal. Electrolytes show a component of non-anion gap metabolic acidosis with a serum bicarb of 19, BUN of 18 with a creatinine of 0.77. The patient is currently on Zosyn and Zithromax. She is currently on oxygen at 5 L with a pulse ox of 95%. She is lethargic and she is able to communicate. Family is at the bedside. Patient was evaluated today on 10/07/2023, feeling much better since admission, breathing a lot easier, chest x-ray is actually showing improvement in her left lower lobe infiltrate continues to have leukocytosis with WBC count of 14.9 hemoglobin is 8.8 electrolytes are normal renal profile is normal, clinically however the patient is feeling better, O2 saturation is 100% on 2 L nasal cannula it was 93% on room air sputum cultures and blood cultures remain negative so far Patient was evaluated today on 10/08/2023, I saw this patient yesterday, and she was doing quite well. She was on 2 L nasal cannula, was not in any distress. However couple of hours after I saw the patient, I was notified by the nurse that her primary care physician is concerned about the patient and she was looking pale she was short of breath, and he recommended immediate transfer to the ICU. I did not get a chance to go and evaluate the patient on the floor again, however based on the insistence of her primary care, I recommended tra nsfer to the ICU, check ABG, and to monitor the patient in the ICU overnight. Shortly after she arrived to the ICU, her pO2 did not seem quite bad, she was relatively hypoxic which is expected considering her pneumonia this was done on 2 L nasal cannula and her ABG showed a pO2 of 43 pCO2 of 3 0 pH of 7.46, remind you patient had extensive pneumonia. In the ICU she was placed on 6 L nasal cannula, she looked very comfortable, she was hemodynamically stable, and in no distress. Hence I kept the patient in the ICU overnight, saw the patient today, she is doing much better, not in any distress, patient had an episode of atrial fibrillation, seen by cardiology, placed on Cardizem, and plan to transition Cardizem to oral instead of IV. Patient did not seem to be in any distress to me, hence I plan to transfer the patient back to the medical floor/3 S. Labs today show WBC of 13.8 hemoglobin of 9, Basic metabolic profile is relatively normal bicarb is 17 BUN is 15 creatinine 0.49 chest x-ray today continues to show extensive left-sided pneumonia involving the left lower lobe, lingula, and to some extent the left upper lobe Patient was evaluated today on 10/09/2023, patient remains in the ICU, patient just came back from EGD which showed mostly erosive gastritis and hiatal hernia. She is on 4 L nasal cannula, hemoglobin today is 8.8, patient remains on vancomycin and cefepime for left lower lobe extensive pneumonia, chest x-ray today is showing evidence of worsening interstitial edema, hence I cut down her IV fluid to KVO, and will give the patient a trial of diuretics/Lasix 40 mg IV push x 1. Clinically the patient seems to feel and to look better than what is noted on the chest x-ray. Echocardiogram on this admission showed good LV function 55 to 60% ejection fraction. Nonetheless the chest x-ray is concerning to me, could be a worsening aspiration pneumonia could also be some interstitial edema, patient does have history of moderate mitral regurgitation which could be a contributing factor to her interstitial edema as noted on the chest x-ray today. Patient was evaluated today on 10/10/2023, remains in the ICU as an overflow. Patient is feeling much better, breathing a lot easier, she is actually now on room air, and her O2 saturation is 93%. Patient responded well to Lasix yesterday, and diuresed over 3 L hardly any pulmonary symptoms, however her est x-ray continues to show bilateral infiltrates/interstitial edema. Her chest x-ray findings do not correlate with her clinical findings hence I am suggesting cutting down the Lasix to once a day instead of twice a day, and continue antibiotics for her pneumonia. In the meantime the patient could be considered to transfer to the cardiac floor instead of being in the ICU her WBC count is 9.9 hemoglobin 8.5, Basic metabolic profile is normal and renal profile is normal Objective - Vital Signs Vital signs: Vital Signs Temp 98.5 F 10/10/23 12:00 Pulse 89 10/10/23 12:00 Resp 14 10/10/23 12:00 BP 121/50 10/10/23 12:00 Pulse Ox 93 L 10/10/23 12:00 FiO2 100 10/06/23 07:59 Intake & Output 10/09/23 10/10/23 10/10/23 18:59 06:59 18:59 Intake Total 1600 1520 160 Output Total 3300 2930 1800 Balance -1700 -1410 -1640 Weight 79.7 kg Intake: IV 600 320 160 0.9 200 120 60 Ampicillin-Sulbactam 3 gm 200 200 100 In Sodium Chloride 0.9% 100 ml @ 200 mls/hr IVPB Q6HR [facility] Rx#:[id number] Cefepime 2 gm In Sodium 100 Chloride 0.9% 100 ml @ 25 mls/hr IVPB Q8H [facility] Rx#: [id number] Oral 1000 1200 Output: Urine 3300 2930 1800 Other: Voiding Method Indwelling Catheter Indwelling Catheter Indwelling Catheter # Voids 1 - Exam General: Revealed 78-year-old female in no distress, on room air Skin: Skin is warm and dry and no rashes or lesions are noted. Eye: Pupils are equal, round and reactive to light, extra-ocular movements are intact; there is normal conjunctiva bilaterally. Ears, nose, mouth and throat: There are moist mucous membranes and no oral lesions. Neck: The neck is supple, there is no tenderness or JVD. Cardiovascular: There is a regular rate and rhythm. 2/6 systolic murmur at the left lower sternal border Respiratory: Fairly clear breath sound bilaterally no rhonchi no wheezes Gastrointestinal: Soft, non-distended, non-tender abdomen without masses or organomegaly noted. There is no rebound or guarding present. Bowel sounds are unremarkable. Back: There is no tenderness to palpation in the midline. There is no obvious deformity. Musculoskeletal: Normal ROM, no tenderness, There is no pedal edema. There is no calf tenderness or swelling. No cords were appreciated. Neurological: CN II-XII intact, Cranial nerves III through XII are intact. There are no obvious motor or sensory deficits. Coordination appears grossly intact. Speech is normal. Psychiatric: Cooperative, appropriate mood & affect, normal judgment. - Labs CBC & Chem 7: 10/10/23 03:31 10/10/23 03:31 Labs: Abnormal Lab Results - Last 24 Hours (Table) 10/09/23 10/10/23 10/10/23 Range/Units 12:38 03:31 03:31 RBC 3.35 L (3.80-5.40) m/uL Hgb 8.5 L (11.4-16.0) gm/dL Hct 27.8 L (34.0-46.0) % MCHC 30.5 L (31.0-37.0) g/dL RDW 15.7 H (11.5-15.5) % Neutrophils # 7.8 H (1.3-7.7) k/uL Lymphocytes # 0.9 L (1.0-4.8) k/uL Sodium 134 L (137-145) mmol/L Potassium 3.3 L (3.5-5.1) mmol/L Calcium 7.8 L (8.4-10.2) mg/dL Total Protein 4.8 L (6.3-8.2) g/dL Albumin 2.7 L (3.5-5.0) g/dL Microbiology - Last 24 Hours (Table) 10/07/23 17:58 Blood Culture - Preliminary Blood 10/06/23 05:16 Blood Culture - Preliminary Blood 10/06/23 05:01 Blood Culture - Preliminary Blood 10/07/23 07:56 Gram Stain - Final Sputum Sputum Culture - Final Escherichia coli Kanchan albicans 10/06/23 18:49 Gram Stain - Final Sputum Sputum Culture - Final Escherichia coli Assessment and Plan Assessment: Impression: Acute left lower lobe pneumonia, serum is positive for E. coli, sensitive to all antibiotics.. Acute hypoxic respiratory failure secondary to above History of hiatal hernia Dyslipidemia Degenerative joint disease Chronic neuropathic pain Coffee-ground emesis, secondary to erosive gastritis as noted on EGD New onset atrial fibrillation Moderate mitral regurgitation as noted on echocardiogram Possible acute congestive heart failure, with preserved ejection fraction, Recommendation: Transfer patient to the medical floor today. Continue antibiotics Cut down on diuretics Keep IV fluids at O Reviewed the results of her EGD Continue bronchodilators continue GI and DVT prophylaxis Will continue to follow Time with Patient: Less than 30
--- NOTE | 2023-10-10 12:41 | P.PN ---
Subjective Progress Note Date: 10/10/23 HISTORY OF PRESENT ILLNESS: This is an 78 -year-old female with a previous medical history sign ificant for hyperlipidemia, GERD with esophagitis, osteoarthritis, patient was in her usual state of health till about 2 days ago when she had a coughing episode while she was eating, according to her she probably choked on her food, and she was complaining of some indigestion at that time, patient felt better after few hours, and last night she was having fever and chills and she was coughing quite a bit of phlegm associated with increased sore throat, so she was brought into the emergency department at [facility] today because of shortness of breath, and because is not feeling good, she appeared to be quite drowsy, she denies any sick contact, she denies any diarrhea, she did have 1 episode of vomiting, she does cough up some black stuff, she did receive Pepto- Bismol from her earlier yesterday, patient was seen and evaluated in the emergency department, she was in respiratory distress, she did have lactic acidosis with a lactic acid of 5.6, she was given IV fluid resuscitation, her chest x-ray showed significant pneumonia in the left side involving the upper lobe and lower lobe, patient was started on oxygen at 4 L nasal cannula, her oxygen saturation was around 95%, patient appears to be breathing shallower, pulmonary consultation was obtained from Dr. Peng, patient did receive Zithromax as well as Zosyn in the ER, she will need to be admitted to the hospital for further evaluation recommendation she will be started nebulized treatment in the form of Albuterol 3ml nebulization 4 times every day, also she will be started on Mucinex 600 mg orally twice every day, she will have sputum culture, we will check urine Legionella antigen, mycoplasma antibody IgG and IgM, I will broaden the antibiotic to rule out any MRSA pneumonia started on vancomycin 1000 mg x 1 and pharmacy to dose its peak and trough, and as stated earlier pulmonary consultation for further evaluation and recommendation for possible ICU care, I will consult infectious disease as well Dr. Mo. 10/06: Patient continues to be somewhat short of breath, she continues to be on o xygen support, she appears to be pale, she appears to be confused, she appears in severe sepsis, I have asked the nursing staff to order blood gases, and lactic acid, she will be transferred to the intensive care unit for further evaluation and recommendation, continue IV fluid resuscitation, continue patient on IV antibiotic in the form of vancomycin as well as cefepime per infectious disease recommendation, we will continue to monitor the patient very closely, I believe the patient will end up on the ventilator due to her altered level of consciousness. 10/07: Patient is laying down in bed in no apparent distress, yesterday she went into atrial fibrillation with rapid ventricular response, she initially was started on a Cardizem drip, and after that she was converted back to sinus rhythm, she was seen in consultation by cardiology, she will be started on Eliquis 5 mg orally twice every day for stroke prevention, patient is at 3 L nasal cannula, her oxygen saturation 98%, she is doing better, chest x-ray appears worse, international trade compliance manager recommended for the patient to be transferred to the telemetry unit at this time, patient appears in better spirits today, will continue current treatment plan, continue the patient on IV antibiotic in the form of vancomycin as well as cefepime, infectious and pulmonary medicine are following. 10/08: Patient underwent EGD today by Dr. Nelson showed mild gastritis, no evidence of any active gastric bleed at this time, her hemoglobin is stable at t his time, will continue to hold Eliquis for another 24 hours, restarted back tomorrow morning, patient has been in sinus rhythm at this point in time, she denies any chest pain, she continues to have some coughing minimal from production, sputum cultures positive for E. coli, she was switched to Unasyn per infectious disease she was taken on vancomycin as well as cefepime, will continue to monitor the patient very closely, she will be kept in the ICU for another 24 hours, patient has been on 2 L nasal cannula, will continue with that continue with aggressive pulmonary toileting as well 10/09: Patient is REVIEW OF SYSTEMS: Constitutional: Awake alert and oriented no acute distress. Gastrointestinal no abdominal pain, nausea vomiting or diarrhea she appears to be a lot stronger she is visiting with her friend.ve for fever, positive for chills, no night sweats. No weight change. positive for weakness, positive for fatigue and lethargy lethargy. No daytime sleepiness. HEENT: No headache. No blurred vision or double vision, no loss of vision. No loss of Hearing, no ringing in the ears, no dizziness. No nasal drainage or congestion. No epistaxis. No sore throat. Lungs: no shortness of breath, positive for coughing , positive for sputum production. No wheezing. Reports dyspnea with activity. Cardiovascular: No chest pain, no lower extremity edema. No palpitations. No paroxysmal nocturnal dyspnea. No orthopnea. No lightheadedness or dizziness. No syncopal episodes. Abdominal: Reports no abdominal pain. No nausea, vomiting. No diarrhea. No constipation. No bloody or tarry stools reports loss of appetite. Genitourinary: No dysuria, increased frequency, urgency. No urinary retention. Musculoskeletal: No myalgias. No muscle weakness, no gait dysfunction, no frequent falls. positive for back pain. No neck pain, positive for left hip pain Integumentary: No wounds, no lesions. No rash or pruritus. No unusual bruising. No change in hair or nails. Neurologic: No aphasia. No facial droop. positive for change in mentation. No head injury. No headache. No paralysis. No paresthesia. Psychiatric: No depression. No anxiety. No mood swings. Endocrine: No abnormal blood sugars. No weight change. PHYSICAL EXAMINATION: General: 78-year-old female laying down in bed in no respiratory distress. HEENT: Head is atraumatic, normocephalic, pupils were equal round reactive to light and recommendation, extraocular muscle movement were intact, sclera nonicteric, conjunctivae were pale, mucous membranes of the mouth are somewhat dry. Neck: Supple, no JVP, normal carotid upstroke bilaterally, no lymphadenopathy. Chest: Decreased breath sounds at the bases, few rhonchi, no expiratory wheezes, no chest wall tenderness, no intercostal retractions. Heart: First heart sound is normal, second heart sounds normal there is DARREN 2/6 located at the left sternal border Abdomen: Soft, nontender, nondistended, positive bowel sounds. Extremities: There is no edema no calf tenderness DP +2 bilaterally Neurologic examination: Patient is awake alert and oriented x 3, cranial nerves II to XII appear gross intact, muscle power 5 out of 5 in upper and lower extremities bilaterally. ASSESSMENT AND PLAN: 1. Acute hypoxemic respiratory failure due to multilobar left sided pneumonia with E. coli likely aspiration pneumonia. Continue patient on Unasyn 3 g IV piggyback every 6 hours, patient is currently off oxygen, continue senna spirometer, increase activity, transfer the patient to the undertreated. 2. Lactic acidosis likely due to pneumonia with severe sepsis. Lactic acid is back to normal. 3. Metabolic encephalopathy due to severe sepsis due to underlying pneumonia. She is back to normal patient was started back on her gabapentin 300 mg orally 3 times every day. 4. Atrial fibrillation with rapid ventricle response back to sinus rhythm continue with Cardizem 30 mg orally 3 times every day, start the patient on Eliquis 5 mg orally twice every day. 5. Coffee-ground emesis with acute symptomatic anemia. Status post EGD that showed mild gastritis, post biopsies. No evidence of active bleeding. Continue Protonix restart Eliquis tomorrow morning. 6. Hyperlipidemia. Continue patient on atorvastatin 40 mg once every day, monitor the patient with a panel keep the patient LDL 55-70. 7. Anxiety/depressive disorder. Continue patient on Lexapro 5 mg orally once every day. 8. Vitamin D deficiency. Continue vitamin D supplement. 9. Osteoarthritis. Continue current pain management. 10. GERD with hiatal hernia. Continue patient on Protonix 40 mg IV push every 12 hours, discontinue famotidine. 11. Spondylosis of the lumbar spine. Patient was started back on her gabapentin 300 mg orally 3 times every day. 12. DVT prophylaxis. Continue Lovenox for now 40 mg subcutaneous every 24 hours. 13. GI prophylaxis. Continue Protonix 40 mg IV push every 12 hours. 14. Thrush. Continue nystatin swish and swallow 4 times every day. 15. Transfer the patient to a telemetry unit tomorrow morning. Objective - Vital Signs Vital signs: Vital Signs Temp 98.5 F 10/10/23 12:00 Pulse 89 10/10/23 12:00 Resp 14 10/10/23 12:00 BP 121/50 10/10/23 12:00 Pulse Ox 93 L 10/10/23 12:00 FiO2 100 10/06/23 07:59 Intake & Output 10/09/23 10/10/23 10/10/23 18:59 06:59 18:59 Intake Total 1600 1520 160 Output Total 3300 2930 1800 Balance -1700 -1410 -1640 Weight 79.7 kg Intake: IV 600 320 160 0.9 200 120 60 Ampicillin-Sulbactam 3 gm 200 200 100 In Sodium Chloride 0.9% 100 ml @ 200 mls/hr IVPB Q6HR [facility] Rx#:[id number] Cefepime 2 gm In Sodium 100 Chloride 0.9% 100 ml @ 25 mls/hr IVPB Q8H [facility] Rx#: [id number] Oral 1000 1200 Output: Urine 3300 2930 1800 Other: Voiding Method Indwelling Catheter Indwelling Catheter Indwelling Catheter # Voids 1 - Labs CBC & Chem 7: 10/10/23 03:31 10/10/23 03:31 Labs: Abnormal Lab Results - Last 24 Hours (Table) 10/09/23 10/10/23 10/10/23 Range/Units 12:38 03:31 03:31 RBC 3.35 L (3.80-5.40) m/uL Hgb 8.5 L (11.4-16.0) gm/dL Hct 27.8 L (34.0-46.0) % MCHC 30.5 L (31.0-37.0) g/dL RDW 15.7 H (11.5-15.5) % Neutrophils # 7.8 H (1.3-7.7) k/uL Lymphocytes # 0.9 L (1.0-4.8) k/uL Sodium 134 L (137-145) mmol/L Potassium 3.3 L (3.5-5.1) mmol/L Calcium 7.8 L (8.4-10.2) mg/dL Total Protein 4.8 L (6.3-8.2) g/dL Albumin 2.7 L (3.5-5.0) g/dL Microbiology - Last 24 Hours (Table) 10/07/23 17:58 Blood Culture - Preliminary Blood 10/06/23 05:16 Blood Culture - Preliminary Blood 10/06/23 05:01 Blood Culture - Preliminary Blood 10/07/23 07:56 Gram Stain - Final Sputum Sputum Culture - Final Escherichia coli Kanchan albicans 10/06/23 18:49 Gram Stain - Final Sputum Sputum Culture - Final Escherichia coli
--- NOTE | 2023-10-10 13:33 | P.PN ---
Subjective Progress Note Date: 10/10/23 CHIEF COMPLAINT: Pneumonia HISTORY OF PRESENT ILLNESS: Patient mikael in the ICU. Surgical service consul kathryn for GI bleed. Patient has had no further nausea or vomiting. Denies any abdominal pain. Denies any dysphagia. Hemoglobin stable at 8.5. She had EGD completed today with results reporting antral gastritis, large paraesophageal hiatal hernia and mild esophagitis. Biopsies taken. PHYSICAL EXAM: VITAL SIGNS: Reviewed. GENERAL: Well-developed in no acute distress. ABDOMEN: Soft. Nondistended. Nontender NEUROLOGIC: Alert and oriented. Cranial nerves II through XII grossly intact. ASSESSMENT: 1. Acute upper GI bleed with anemia and 1 episode of coffee-ground emesis status post EGD revealing antral gastritis, large paraesophageal hiatal hernia and mild esophagitis 2. Large paraesophageal hiatal hernia PLAN: -Dr. Nelson recommends hiatal hernia repair outpatient when patient is feeling better -Continue IV Protonix -Resume regular diet -Continue to monitor hemoglobin -Okay to start Eliquis Physician Tow Truck Driver note has been reviewed by physician. Signing provider agrees with the documented findings, assessment, and plan of care. Patient found to have gastritis and hiatal hernia on EGD. No active bleeding. Will sign off. Please reconsult if needed. Objective - Vital Signs Vital signs: Vital Signs Temp 98.5 F 10/10/23 12:00 Pulse 89 10/10/23 12:00 Resp 14 10/10/23 12:00 BP 121/50 10/10/23 12:00 Pulse Ox 93 L 10/10/23 12:00 FiO2 100 10/06/23 07:59 Intake & Output 10/09/23 10/10/23 10/10/23 18:59 06:59 18:59 Intake Total 1600 1520 160 Output Total 3300 2930 1800 Balance -1700 -1410 -1640 Weight 79.7 kg Intake: IV 600 320 160 0.9 200 120 60 Ampicillin-Sulbactam 3 gm 200 200 100 In Sodium Chloride 0.9% 100 ml @ 200 mls/hr IVPB Q6HR [facility] Rx#:[id number] Cefepime 2 gm In Sodium 100 Chloride 0.9% 100 ml @ 25 mls/hr IVPB Q8H [facility] Rx#: [id number] Oral 1000 1200 Output: Urine 3300 2930 1800 Other: Voiding Method Indwelling Catheter Indwelling Catheter Indwelling Catheter # Voids 1 - Labs CBC & Chem 7: 10/10/23 03:31 10/10/23 03:31 Labs: Abnormal Lab Results - Last 24 Hours (Table) 10/09/23 10/10/23 10/10/23 Range/Units 12:38 03:31 03:31 RBC 3.35 L (3.80-5.40) m/uL Hgb 8.5 L (11.4-16.0) gm/dL Hct 27.8 L (34.0-46.0) % MCHC 30.5 L (31.0-37.0) g/dL RDW 15.7 H (11.5-15.5) % Neutrophils # 7.8 H (1.3-7.7) k/uL Lymphocytes # 0.9 L (1.0-4.8) k/uL Sodium 134 L (137-145) mmol/L Potassium 3.3 L (3.5-5.1) mmol/L Calcium 7.8 L (8.4-10.2) mg/dL Total Protein 4.8 L (6.3-8.2) g/dL Albumin 2.7 L (3.5-5.0) g/dL Microbiology - Last 24 Hours (Table) 10/07/23 17:58 Blood Culture - Preliminary Blood 10/06/23 05:16 Blood Culture - Preliminary Blood 10/06/23 05:01 Blood Culture - Preliminary Blood 10/07/23 07:56 Gram Stain - Final Sputum Sputum Culture - Final Escherichia coli Kanchan albicans 10/06/23 18:49 Gram Stain - Final Sputum Sputum Culture - Final Escherichia coli
[2023-10-10] MEDS: APIXABAN 5 MG TAB PO SCH (21:35)
[2023-10-11 04:54] LABS: Basophils % (A) 0 %; Eosinophils # (A) 0.3 k/uL (0-0.7); Eosinophils % (A) 3 %; HCT 29.4 % (34.0-46.0); Hypochromasia Slight; Lymphocytes % (A) 10 %; MCH 25.1 pg (25.0-35.0); MCHC 30.6 g/dL (31.0-37.0); MCV 82.1 fL (80.0-100.0); Mean Platelet Volume 8.7; Monocytes # (A) 1.1 k/uL (0-1.0); Monocytes % (A) 11 %; Neutrophils # (A) 7.6 k/uL (1.3-7.7); Neutrophils % (A) 75 %; Platelet Count 241 k/uL (150-450); RBC 3.59 m/uL (3.80-5.40); RDW 15.8 % (11.5-15.5); WBC 10.2 k/uL (3.8-10.6)
[2023-10-11 05:05] LABS: ALT 29 U/L (4-34); AST 32 U/L (14-36); African American GFR (CKD) >90 (>60 ml/min/1.73 sqM); Albumin 2.6 g/dL (3.5-5.0); Alkaline Phosphatase 81 U/L (38-126); Anion Gap 5 mmol/L; Blood Urea Nitrogen 11 mg/dL (7-17); Calcium 7.9 mg/dL (8.4-10.2); Carbon Dioxide 25 mmol/L (22-30); Chloride 104 mmol/L (98-107); Glucose 92 mg/dL (74-99); Non-African American GFR(CKD) 88 (>60 ml/min/1.73 sqM); Potassium 3.6 mmol/L (3.5-5.1); Sodium 134 mmol/L (137-145); Total Bilirubin 0.6 mg/dL (0.2-1.3); Total Protein 4.8 g/dL (6.3-8.2)
--- NOTE | 2023-10-11 08:00 | P.PN ---
Subjective Progress Note Date: 10/11/23 PROGRESS NOTE The patient is an 78-year-old female with no prior documented history of CAD who presented with symptoms of cough, aspiration pneumonia and weakness. She was transferred to the ICU and had atrial fibrillation with episodes of rapid ventricular response. She is not aware of the arrhythmia. She has no prior cardiac history. She has fractured her hip about a year ago but prior to that has been active without any symptoms of chest discomfort or dyspnea. She denies any history of dizziness, palpitations or syncope. Her breathing is better. She denies any significant peripheral edema, no PND or orthopnea. She was started on IV Cardizem. On admission she was lethargic but appears to be awake and alert today with no complaints. She is a non-smoker, she has a history of hyperlipidemia. October 08: The patient is feeling well this morning, she feels tired but otherwise has no chest discomfort. She continues to be in sinus mechanism. She continues to have dyspnea and some cough. She had upper GI bleeding and she is scheduled to undergo endoscopy. She had no further episodes of atrial fibrillation. Her echocardiogram revealed a preserved systolic function with moderate mitral regurgitation. Her urinary output has been good. October 09: The patient is feeling better today. She underwent upper endoscopy yesterday and was found to have a hiatal hernia but no active bleeding. She has not had any further episodes of GI bleeding. Hemodynamically she is stable. She is in sinus mechanism with no further atrial fibrillation. Her urinary output has been good. She is on no vasopressors. She is afebrile. She is laying supine. October 10: The patient feels better today, sitting up, she feels that her breathing and cough are better. She denies any chest discomfort, dizziness or palpitations. She continues to be in normal sinus rhythm with no further atrial fibrillation. She was reinitiated on anticoagulation yesterday. Urine output has been stable. Hemodynamically she is stable. Medications: Aspirin, Lipitor 40 mg daily, Unasyn, diltiazem 30 mg p.o. 3 times daily, Neurontin, Protonix, Lasix 40 mg IV daily, Eliquis 5 mg twice a day restarted yesterday PHYSICAL EXAMINATION: Blood pressure 129/60 heart rate 76 LUNGS: Few crackles in the base HEART: Regular rate and rhythm, S1, S2. No S3. Systolic ejection murmur ABDOMEN: Soft, nontender, no organomegaly EXTREMETIES: No edema LAB: BUN 11, creatinine 0.58, hemoglobin 9.0, white blood cell 10.2 IMPRESSION: 1. Aspiration pneumonia with hypoxemia, improving 2. Paroxysmal atrial fibrillation, back in sinus mechanism, back on anticoagulation 3. GI bleeding, stable no evidence of acute bleeding 4. History of hyperlipidemia PLAN: 1. Continue present therapy 2. Probable transfer to telemetry 3. Increase physical activity 4. Depending on her progress further recommendations will be made Objective - Vital Signs Vital signs: Vital Signs Temp 98.4 F 10/11/23 04:00 Pulse 76 10/11/23 04:00 Resp 22 10/11/23 04:00 BP 129/60 10/11/23 04:00 Pulse Ox 94 L 10/11/23 04:00 FiO2 99 10/10/23 16:00 Intake & Output 10/10/23 10/11/23 10/11/23 18:59 06:59 18:59 Intake Total 320 200 30 Output Total 2450 1000 200 Balance -2130 -800 -170 Intake: IV 320 200 30 0.9 120 100 30 Ampicillin-Sulbactam 3 gm 200 100 In Sodium Chloride 0.9% 100 ml @ 200 mls/hr IVPB Q6HR [facility] Rx#:[id number] Output: Urine 2450 1000 200 Other: Voiding Method Indwelling Catheter Bedside Commode # Voids 1 # Bowel Movements 1 - Labs CBC & Chem 7: 10/11/23 03:43 10/11/23 03:43 Labs: Abnormal Lab Results - Last 24 Hours (Table) 10/11/23 10/11/23 Range/Units 03:43 03:43 RBC 3.59 L (3.80-5.40) m/uL Hgb 9.0 L (11.4-16.0) gm/dL Hct 29.4 L (34.0-46.0) % MCHC 30.6 L (31.0-37.0) g/dL RDW 15.8 H (11.5-15.5) % Monocytes # 1.1 H (0-1.0) k/uL Sodium 134 L (137-145) mmol/L Calcium 7.9 L (8.4-10.2) mg/dL Total Protein 4.8 L (6.3-8.2) g/dL Albumin 2.6 L (3.5-5.0) g/dL Microbiology - Last 24 Hours (Table) 10/07/23 17:58 Blood Culture - Preliminary Blood
[2023-10-11] MEDS ORDERED: ALBUTEROL NEBULIZED 2.5 MG/3 ML INHALATION PRN (09:20)
[2023-10-11] MEDS: POTASSIUM CHLORIDE ER 20 MEQ TAB.ER PO SCH (10:07)
--- NOTE | 2023-10-11 12:09 | P.PN ---
Subjective Progress Note Date: 10/11/23 Principal diagnosis: Acute left lower lobe pneumonia: Community-acquired, although possible aspiration pneumonia is in the differential. This is a 78-year-old female patient who got sick within the past 24 hours. According to the , the patient had an episode of choking on food material at home few days back. Over the past 24 hours, she felt weak, lethargic and she was also having increased congested cough. No history of lung disease. No previous episodes of pneumonia. No previous history of aspiration. Chest x-ray shows an extensive airspace disease in the left lower lobe. Hemodynamically stable. White cell 5.3, normal coagulation profile, BUN is 18 with a creatinine of 0.7. Initial lactic acid level was at 5.2 dropped down to 2.6. The viral screen has been negative. Troponins are negative. LFTs are normal. Electrolytes show a component of non-anion gap metabolic acidosis with a serum bicarb of 19, BUN of 18 with a creatinine of 0.77. The patient is currently on Zosyn and Zithromax. She is currently on oxygen at 5 L with a pulse ox of 95%. She is lethargic and she is able to communicate. Family is at the bedside. Patient was evaluated today on 10/07/2023, feeling much better since admission, breathing a lot easier, chest x-ray is actually showing improvement in her left lower lobe infiltrate continues to have leukocytosis with WBC count of 14.9 hemoglobin is 8.8 electrolytes are normal renal profile is normal, clinically however the patient is feeling better, O2 saturation is 100% on 2 L nasal cannula it was 93% on room air sputum cultures and blood cultures remain negative so far Patient was evaluated today on 10/08/2023, I saw this patient yesterday, and she was doing quite well. She was on 2 L nasal cannula, was not in any distress. However couple of hours after I saw the patient, I was notified by the nurse that her primary care physician is concerned about the patient and she was looking pale she was short of breath, and he recommended immediate transfer to the ICU. I did not get a chance to go and evaluate the patient on the floor again, however based on the insistence of her primary care, I recommended tra nsfer to the ICU, check ABG, and to monitor the patient in the ICU overnight. Shortly after she arrived to the ICU, her pO2 did not seem quite bad, she was relatively hypoxic which is expected considering her pneumonia this was done on 2 L nasal cannula and her ABG showed a pO2 of 43 pCO2 of 3 0 pH of 7.46, remind you patient had extensive pneumonia. In the ICU she was placed on 6 L nasal cannula, she looked very comfortable, she was hemodynamically stable, and in no distress. Hence I kept the patient in the ICU overnight, saw the patient today, she is doing much better, not in any distress, patient had an episode of atrial fibrillation, seen by cardiology, placed on Cardizem, and plan to transition Cardizem to oral instead of IV. Patient did not seem to be in any distress to me, hence I plan to transfer the patient back to the medical floor/3 S. Labs today show WBC of 13.8 hemoglobin of 9, Basic metabolic profile is relatively normal bicarb is 17 BUN is 15 creatinine 0.49 chest x-ray today continues to show extensive left-sided pneumonia involving the left lower lobe, lingula, and to some extent the left upper lobe Patient was evaluated today on 10/09/2023, patient remains in the ICU, patient just came back from EGD which showed mostly erosive gastritis and hiatal hernia. She is on 4 L nasal cannula, hemoglobin today is 8.8, patient remains on vancomycin and cefepime for left lower lobe extensive pneumonia, chest x-ray today is showing evidence of worsening interstitial edema, hence I cut down her IV fluid to KVO, and will give the patient a trial of diuretics/Lasix 40 mg IV push x 1. Clinically the patient seems to feel and to look better than what is noted on the chest x-ray. Echocardiogram on this admission showed good LV function 55 to 60% ejection fraction. Nonetheless the chest x-ray is concerning to me, could be a worsening aspiration pneumonia could also be some interstitial edema, patient does have history of moderate mitral regurgitation which could be a contributing factor to her interstitial edema as noted on the chest x-ray today. Patient was evaluated today on 10/10/2023, remains in the ICU as an overflow. Patient is feeling much better, breathing a lot easier, she is actually now on room air, and her O2 saturation is 93%. Patient responded well to Lasix yesterday, and diuresed over 3 L hardly any pulmonary symptoms, however her est x-ray continues to show bilateral infiltrates/interstitial edema. Her chest x-ray findings do not correlate with her clinical findings hence I am suggesting cutting down the Lasix to once a day instead of twice a day, and continue antibiotics for her pneumonia. In the meantime the patient could be considered to transfer to the cardiac floor instead of being in the ICU her WBC count is 9.9 hemoglobin 8.5, Basic metabolic profile is normal and renal profile is normal Patient was reevaluated today on 10/11/2023, remains in the ICU, remains on antibiotics and on diuretics, clinically the patient is feeling great, her chest x-ray yesterday has not shown dramatic improvement. Patient is on room air, does not seem to be in any distress. Awaiting to be transferred to a medical floor/3 S. Her sputum has been positive for E. coli. And the patient remains on antibiotics. WBC count is 10.2 hemoglobin is 9 basic metabolic profile is normal and renal profile is normal. Patient remains in sinus rhythm, no further episodes of atrial fibrillation. Patient was kept on anticoagulation therapy, urine output has been excellent, patient remains on Lasix 40 mg IV push daily Objective - Vital Signs Vital signs: Vital Signs Temp 98.6 F 10/11/23 08:00 Pulse 80 10/11/23 08:00 Resp 18 10/11/23 08:00 BP 138/73 10/11/23 08:00 Pulse Ox 94 L 10/11/23 08:00 FiO2 99 10/10/23 16:00 Intake & Output 10/10/23 10/11/23 10/11/23 18:59 06:59 18:59 Intake Total 320 200 300 Output Total 2450 1000 800 Balance -2130 -800 -500 Intake: IV 320 200 30 0.9 120 100 30 Ampicillin-Sulbactam 3 gm 200 100 In Sodium Chloride 0.9% 100 ml @ 200 mls/hr IVPB Q6HR [facility] Rx#:[id number] Intake, IV Titration 30 Amount Sodium Chloride 0.9% 1, 30 000 ml @ 10 mls/hr IV . Q24H [facility] Rx#:[id number] Oral 240 Output: Urine 2450 1000 800 Other: Voiding Method Indwelling Catheter Bedside Commode Bedside Commode # Voids 1 1 # Bowel Movements 1 1 - Exam General: Revealed 78-year-old female in no distress, on room air Skin: Skin is warm and dry and no rashes or lesions are noted. Eye: Pupils are equal, round and reactive to light, extra-ocular movements are intact; there is normal conjunctiva bilaterally. Ears, nose, mouth and throat: There are moist mucous membranes and no oral lesions. Neck: The neck is supple, there is no tenderness or JVD. Cardiovascular: There is a regular rate and rhythm. 2/6 systolic murmur at the left lower sternal border Respiratory: Very minimal crackles at the bases no rhonchi no wheeze Gastrointestinal: Soft, non-distended, non-tender abdomen without masses or organomegaly noted. There is no rebound or guarding present. Bowel sounds are unremarkable. Back: There is no tenderness to palpation in the midline. There is no obvious deformity. Musculoskeletal: Normal ROM, no tenderness, There is no pedal edema. There is no calf tenderness or swelling. No cords were appreciated. Neurological: CN II-XII intact, Cranial nerves III through XII are intact. There are no obvious motor or sensory deficits. Coordination appears grossly intact. Speech is normal. Psychiatric: Cooperative, appropriate mood & affect, normal judgment. - Labs CBC & Chem 7: 10/11/23 03:43 10/11/23 03:43 Labs: Abnormal Lab Results - Last 24 Hours (Table) 10/11/23 10/11/23 Range/Units 03:43 03:43 RBC 3.59 L (3.80-5.40) m/uL Hgb 9.0 L (11.4-16.0) gm/dL Hct 29.4 L (34.0-46.0) % MCHC 30.6 L (31.0-37.0) g/dL RDW 15.8 H (11.5-15.5) % Monocytes # 1.1 H (0-1.0) k/uL Sodium 134 L (137-145) mmol/L Calcium 7.9 L (8.4-10.2) mg/dL Total Protein 4.8 L (6.3-8.2) g/dL Albumin 2.6 L (3.5-5.0) g/dL Microbiology - Last 24 Hours (Table) 10/07/23 17:58 Blood Culture - Preliminary Blood Assessment and Plan Assessment: Impression: Acute left lower lobe pneumonia, sputum is positive for E. coli, sensitive to all antibiotics.. Acute hypoxic respiratory failure secondary to above History of hiatal hernia Dyslipidemia Degenerative joint disease Chronic neuropathic pain Coffee-ground emesis, secondary to erosive gastritis as noted on EGD New onset atrial fibrillation Moderate mitral regurgitation as noted on echocardiogram Possible acute congestive heart failure, with preserved ejection fraction, Recommendation: Continue antibiotics Continue Lasix 40 mg IV push daily, continue to monitor electrolytes and renal profile on a daily basis Keep IV fluids at KVO Continue bronchodilators continue GI and DVT prophylaxis Will continue to follow Time with Patient: Less than 30
[2023-10-11 14:48] VITALS: BMI 27.5
[2023-10-11] MEDS: DILTIAZEM ORAL 60 MG TAB PO STA (15:16)
--- NOTE | 2023-10-11 16:38 | P.PN ---
Subjective Progress Note Date: 10/11/23 HISTORY OF PRESENT ILLNESS: This is an 78 -year-old female with a previous medical history sign ificant for hyperlipidemia, GERD with esophagitis, osteoarthritis, patient was in her usual state of health till about 2 days ago when she had a coughing episode while she was eating, according to her she probably choked on her food, and she was complaining of some indigestion at that time, patient felt better after few hours, and last night she was having fever and chills and she was coughing quite a bit of phlegm associated with increased sore throat, so she was brought into the emergency department at [facility] today because of shortness of breath, and because is not feeling good, she appeared to be quite drowsy, she denies any sick contact, she denies any diarrhea, she did have 1 episode of vomiting, she does cough up some black stuff, she did receive Pepto- Bismol from her earlier yesterday, patient was seen and evaluated in the emergency department, she was in respiratory distress, she did have lactic acidosis with a lactic acid of 5.6, she was given IV fluid resuscitation, her chest x-ray showed significant pneumonia in the left side involving the upper lobe and lower lobe, patient was started on oxygen at 4 L nasal cannula, her oxygen saturation was around 95%, patient appears to be breathing shallower, pulmonary consultation was obtained from Dr. Peng, patient did receive Zithromax as well as Zosyn in the ER, she will need to be admitted to the hospital for further evaluation recommendation she will be started nebulized treatment in the form of Albuterol 3ml nebulization 4 times every day, also she will be started on Mucinex 600 mg orally twice every day, she will have sputum culture, we will check urine Legionella antigen, mycoplasma antibody IgG and IgM, I will broaden the antibiotic to rule out any MRSA pneumonia started on vancomycin 1000 mg x 1 and pharmacy to dose its peak and trough, and as stated earlier pulmonary consultation for further evaluation and recommendation for possible ICU care, I will consult infectious disease as well Dr. Mo. 10/06: Patient continues to be somewhat short of breath, she continues to be on o xygen support, she appears to be pale, she appears to be confused, she appears in severe sepsis, I have asked the nursing staff to order blood gases, and lactic acid, she will be transferred to the intensive care unit for further evaluation and recommendation, continue IV fluid resuscitation, continue patient on IV antibiotic in the form of vancomycin as well as cefepime per infectious disease recommendation, we will continue to monitor the patient very closely, I believe the patient will end up on the ventilator due to her altered level of consciousness. 10/07: Patient is laying down in bed in no apparent distress, yesterday she went into atrial fibrillation with rapid ventricular response, she initially was started on a Cardizem drip, and after that she was converted back to sinus rhythm, she was seen in consultation by cardiology, she will be started on Eliquis 5 mg orally twice every day for stroke prevention, patient is at 3 L nasal cannula, her oxygen saturation 98%, she is doing better, chest x-ray appears worse, wheat grower recommended for the patient to be transferred to the telemetry unit at this time, patient appears in better spirits today, will continue current treatment plan, continue the patient on IV antibiotic in the form of vancomycin as well as cefepime, infectious and pulmonary medicine are following. 10/08: Patient underwent EGD today by Dr. Nelson showed mild gastritis, no evidence of any active gastric bleed at this time, her hemoglobin is stable at t his time, will continue to hold Eliquis for another 24 hours, restarted back tomorrow morning, patient has been in sinus rhythm at this point in time, she denies any chest pain, she continues to have some coughing minimal from production, sputum cultures positive for E. coli, she was switched to Unasyn per infectious disease she was taken on vancomycin as well as cefepime, will continue to monitor the patient very closely, she will be kept in the ICU for another 24 hours, patient has been on 2 L nasal cannula, will continue with that continue with aggressive pulmonary toileting as well 10/09: Patient is laying down in bed in no apparent distress, she denies any chest pain, she continues to have minimal coughing, she continues to use his incentive spirometer, she has no abdominal pain, nausea vomiting or diarrhea, she had a good bowel movement, she is awaiting to go to a telemetry note in the next 24 hours, she has not been using the oxygen today, appears to be a lot better, her x-ray continues to show pneumonia on the left side, we will continue to monitor the patient very closely, continue IV antibiotic in the form of Unasyn 3 g IV piggyback every 6 hours, sputum culture showed E. coli likely aspiration pneumonia. 10/10: Patient is being moved to a telemetry unit today, she denies any headache at this time, she appears to be somewhat upset, because she wants to go home, she went into atrial fibrillation with rapid ventricular response, she did receive an extra dose of Cardizem 60 mg by cardiology, continue Eliquis 5 mg orally twice every day for stroke prevention, monitor the patient very closely, patient continues on IV antibiotic in the form of Unasyn 3 g IV piggyback every 6 hours, patient is not requiring any oxygen, patient has been followed by pulmonary medicine and cardiology along with infectious disease, there is no new changes at this time, she did have a good bowel movement, no diarrhea, no soreness in her mouth, her thrush is much better, she has no edema in both lower extremities, her Lasix is down to 40 mg IV push every 24 hours, repeat the patient labs including CBC CMP and magnesium level tomorrow morning. REVIEW OF SYSTEMS: Constitutional: Awake alert and oriented no acute distress. Gastrointestinal no abdominal pain, nausea vomiting or diarrhea she appears to be a lot stronger she is visiting with her friend.ve for fever, positive for chills, no night sweats. No weight change. positive for weakness, positive for fatigue and lethargy lethargy. No daytime sleepiness. HEENT: No headache. No blurred vision or double vision, no loss of vision. No loss of Hearing, no ringing in the ears, no dizziness. No nasal drainage or congestion. No epistaxis. No sore throat. Lungs: no shortness of breath, positive for coughing , positive for sputum production. No wheezing. Reports dyspnea with activity. Cardiovascular: No chest pain, no lower extremity edema. No palpitations. No paroxysmal nocturnal dyspnea. No orthopnea. No lightheadedness or dizziness. No syncopal episodes. Abdominal: Reports no abdominal pain. No nausea, vomiting. No diarrhea. No constipation. No bloody or tarry stools reports loss of appetite. Genitourinary: No dysuria, increased frequency, urgency. No urinary retention. Musculoskeletal: No myalgias. No muscle weakness, no gait dysfunction, no frequent falls. positive for back pain. No neck pain, positive for left hip pain Integumentary: No wounds, no lesions. No rash or pruritus. No unusual bruising. No change in hair or nails. Neurologic: No aphasia. No facial droop. positive for change in mentation. No head injury. No headache. No paralysis. No paresthesia. Psychiatric: No depression. No anxiety. No mood swings. Endocrine: No abnormal blood sugars. No weight change. PHYSICAL EXAMINATION: General: 78-year-old female laying down in bed in no respiratory d istress. HEENT: Head is atraumatic, normocephalic, pupils were equal round reactive to light and recommendation, extraocular muscle movement were intact, sclera nonicteric, conjunctivae were pale, mucous membranes of the mouth are somewhat dry. Neck: Supple, no JVP, normal carotid upstroke bilaterally, no lymphadenopathy. Chest: Decreased breath sounds at the bases, few rhonchi, no expiratory wheezes, no chest wall tenderness, no intercostal retractions. Heart: First heart sound is normal, second heart sounds normal there is DARREN 2/6 located at the left sternal border Abdomen: Soft, nontender, nondistended, positive bowel sounds. Extremities: There is no edema no calf tenderness DP +2 bilaterally Neurologic examination: Patient is awake alert and oriented x 3, cranial nerves II to XII appear gross intact, muscle power 5 out of 5 in upper and lower extremities bilaterally. ASSESSMENT AND PLAN: 1. Acute hypoxemic respiratory failure due to multilobar left sided pneumonia with E. coli likely aspiration pneumonia. Continue patient on Unasyn 3 g IV piggyback every 6 hours, patient is currently off oxygen, continue senna spirometer, increase activity, transfer the patient to the undertreated. 2. Lactic acidosis likely due to pneumonia with severe sepsis. Lactic acid is back to normal. 3. Metabolic encephalopathy due to severe sepsis due to underlying pneumonia. She is back to normal patient was started back on her gabapentin 300 mg orally 3 times every day. 4. Atrial fibrillation with rapid ventricle response continue with Cardizem 30 mg orally 3 times every day, start the patient on Eliquis 5 mg orally twice every day. 5. Coffee-ground emesis with acute symptomatic anemia. Status post EGD that showed mild gastritis, post biopsies. No evidence of active bleeding. Continue Protonix restart Eliquis tomorrow morning. 6. Hyperlipidemia. Continue patient on atorvastatin 40 mg once every day, monitor the patient with a panel keep the patient LDL 55-70. 7. Anxiety/depressive disorder. Continue patient on Lexapro 5 mg orally once every day. 8. Vitamin D deficiency. Continue vitamin D supplement. 9. Osteoarthritis. Continue current pain management. 10. GERD with hiatal hernia. Continue patient on Protonix 40 mg IV push every 12 hours, discontinue famotidine. 11. Spondylosis of the lumbar spine. Patient was started back on her gabapentin 300 mg orally 3 times every day. 12. Acute on chronic diastolic heart failure. Continue Lasix 40 mg IV push every 24 hours, monitor the patient labs tomorrow morning, continue with Cardizem 30 mg orally 3 times every day. 13. DVT prophylaxis. Continue Lovenox for now 40 mg subcutaneous every 24 hours. 14. GI prophylaxis. Continue Protonix 40 mg IV push every 12 hours. 15. Thrush. Continue nystatin swish and swallow 4 times every day. 16. Transfer the patient to a telemetry Objective - Vital Signs Vital signs: Vital Signs Temp 98 F 10/11/23 12:00 Pulse 150 H 10/11/23 15:00 Resp 18 10/11/23 15:00 BP 122/79 10/11/23 15:00 Pulse Ox 92 L 10/11/23 12:00 FiO2 99 10/10/23 16:00 Intake & Output 10/10/23 10/11/23 10/11/23 18:59 06:59 18:59 Intake Total 320 200 540 Output Total 2450 1000 1600 Balance -2130 -800 -1060 Weight 79.7 kg Intake: IV 320 200 130 0.9 120 100 30 Ampicillin-Sulbactam 3 gm 200 100 100 In Sodium Chloride 0.9% 100 ml @ 200 mls/hr IVPB Q6HR [facility] Rx#:[id number] Intake, IV Titration 50 Amount Sodium Chloride 0.9% 1, 50 000 ml @ 10 mls/hr IV . Q24H [facility] Rx#:[id number] Oral 360 Output: Urine 2450 1000 1600 Other: Voiding Method Indwelling Catheter Bedside Commode External Catheter # Voids 1 1 # Bowel Movements 1 1 - Labs CBC & Chem 7: 10/11/23 03:43 10/11/23 03:43 Labs: Abnormal Lab Results - Last 24 Hours (Table) 10/11/23 10/11/23 Range/Units 03:43 03:43 RBC 3.59 L (3.80-5.40) m/uL Hgb 9.0 L (11.4-16.0) gm/dL Hct 29.4 L (34.0-46.0) % MCHC 30.6 L (31.0-37.0) g/dL RDW 15.8 H (11.5-15.5) % Monocytes # 1.1 H (0-1.0) k/uL Sodium 134 L (137-145) mmol/L Calcium 7.9 L (8.4-10.2) mg/dL Total Protein 4.8 L (6.3-8.2) g/dL Albumin 2.6 L (3.5-5.0) g/dL Microbiology - Last 24 Hours (Table) 10/06/23 05:16 Blood Culture - Final Blood 10/06/23 05:01 Blood Culture - Final Blood 10/07/23 17:58 Blood Culture - Preliminary Blood
--- NOTE | 2023-10-11 17:33 | P.PN ---
Subjective Progress Note Date: 10/10/23 Principal diagnosis: Reason for follow-up is pneumonia and Patient is a 78-year-old female with a past medical history significant for hyperlipidemia chronic back pain abdomen hernia presenting to the hospital for evaluation of increasing shortness of breath and cough patient has been diagnosed with sepsis secondary pneumonia and admitted to hospital. On today's evaluation that is 10/10/2023, Patient is afebrile this morning and denies any chills, patient mention breathing comfortably and is currently on 2 L current oxygen patient denies any chest pain occasional cough patient denies any abdominal pain no diarrhea no nausea no vomiting, mention feeling better. Patient white count normalized to 9.9, creatinine 0.61 Objective - Vital Signs Vital signs: Vital Signs Temp 98.5 F 10/10/23 12:00 Pulse 89 10/10/23 12:00 Resp 14 10/10/23 12:00 BP 121/50 10/10/23 12:00 Pulse Ox 93 L 10/10/23 12:00 FiO2 100 10/06/23 07:59 Intake & Output 10/09/23 10/10/23 10/10/23 18:59 06:59 18:59 Intake Total 1600 1520 160 Output Total 3300 2930 1800 Balance -1700 -1410 -1640 Weight 79.7 kg Intake: IV 600 320 160 0.9 200 120 60 Ampicillin-Sulbactam 3 gm 200 200 100 In Sodium Chloride 0.9% 100 ml @ 200 mls/hr IVPB Q6HR [facility] Rx#:[id number] Cefepime 2 gm In Sodium 100 Chloride 0.9% 100 ml @ 25 mls/hr IVPB Q8H [facility] Rx#: [id number] Oral 1000 1200 Output: Urine 3300 2930 1800 Other: Voiding Method Indwelling Catheter Indwelling Catheter Indwelling Catheter # Voids 1 - Exam GENERAL DESCRIPTION: An elderly female lying in bed in no distress RESPIRATORY SYSTEM: Unlabored breathing , decreased breath sounds at bases HEART: S1 S2 regular rate and rhythm , ABDOMEN: Soft , no tenderness EXTREMITIES: No edema feet - Labs CBC & Chem 7: 10/11/23 03:43 10/11/23 03:43 Labs: Abnormal Lab Results - Last 24 Hours (Table) 10/10/23 10/10/23 Range/Units 03:31 03:31 RBC 3.35 L (3.80-5.40) m/uL Hgb 8.5 L (11.4-16.0) gm/dL Hct 27.8 L (34.0-46.0) % MCHC 30.5 L (31.0-37.0) g/dL RDW 15.7 H (11.5-15.5) % Neutrophils # 7.8 H (1.3-7.7) k/uL Lymphocytes # 0.9 L (1.0-4.8) k/uL Sodium 134 L (137-145) mmol/L Calcium 7.8 L (8.4-10.2) mg/dL Total Protein 4.8 L (6.3-8.2) g/dL Albumin 2.7 L (3.5-5.0) g/dL Microbiology - Last 24 Hours (Table) 10/07/23 17:58 Blood Culture - Preliminary Blood 10/06/23 05:16 Blood Culture - Preliminary Blood 10/06/23 05:01 Blood Culture - Preliminary Blood Assessment and Plan (1) Leukocytosis Current Visit: Yes Status: Acute Code(s): D72.829 - ELEVATED WHITE BLOOD CELL COUNT, UNSPECIFIED SNOMED Code(s): 594257860 (2) Pneumonia Current Visit: Yes Status: Acute Code(s): J18.9 - PNEUMONIA, UNSPECIFIED ORGANISM SNOMED Code(s): 198721821 Plan: 1patient presented to hospital with sepsis in this patient who did have a fever tachycardia elevated lactic acid source likely pneumonia with a question of community-acquired versus resistant gram-negative/gram-positive pathogen 2-did have elevated procalcitonin of 22 blood and sputum cultures currently growing E. coli it is a sensitive pathogen 3-patient did have normalization of the white count and slowly clinically improving to continue with Unasyn Dictation was produced using [employer] dictation software. please excuse any grammatical, word or spelling errors. Time with Patient: Less than 30
--- NOTE | 2023-10-11 17:33 | P.PN ---
Subjective Progress Note Date: 10/11/23 Principal diagnosis: Reason for follow-up is pneumonia and Patient is a 78-year-old female with a past medical history significant for hyperlipidemia chronic back pain abdomen hernia presenting to the hospital for evaluation of increasing shortness of breath and cough patient has been diagnosed with sepsis secondary pneumonia and admitted to hospital. On today's evaluation that is 10/11/2023,the patient denies any fever or any chills, patient is breathing comfortably on room air, the patient denies chest pain shortness of breath and no significant cough, patient denies abdominal pain, no nausea vomiting or diarrhea. Patient denies any new symptom feeling better. Patient white count is 10.2, creatinine 0.58 blood culture has been negative Objective - Vital Signs Vital signs: Vital Signs Temp 98 F 10/11/23 12:00 Pulse 150 H 10/11/23 15:00 Resp 18 10/11/23 15:00 BP 122/79 10/11/23 15:00 Pulse Ox 92 L 10/11/23 12:00 FiO2 99 10/10/23 16:00 Intake & Output 10/10/23 10/11/23 10/11/23 18:59 06:59 18:59 Intake Total 320 200 520 Output Total 2450 1000 1300 Balance -2130 -800 -780 Weight 79.7 kg Intake: IV 320 200 130 0.9 120 100 30 Ampicillin-Sulbactam 3 gm 200 100 100 In Sodium Chloride 0.9% 100 ml @ 200 mls/hr IVPB Q6HR [facility] Rx#:[id number] Intake, IV Titration 30 Amount Sodium Chloride 0.9% 1, 30 000 ml @ 10 mls/hr IV . Q24H [facility] Rx#:[id number] Oral 360 Output: Urine 2450 1000 1300 Other: Voiding Method Indwelling Catheter Bedside Commode External Catheter # Voids 1 1 # Bowel Movements 1 1 - Exam GENERAL DESCRIPTION: An elderly female lying in bed in no distress RESPIRATORY SYSTEM: Unlabored breathing , decreased breath sounds at bases HEART: S1 S2 regular rate and rhythm , ABDOMEN: Soft , no tenderness EXTREMITIES: No edema feet - Labs CBC & Chem 7: 10/11/23 03:43 10/11/23 03:43 Labs: Abnormal Lab Results - Last 24 Hours (Table) 10/11/23 10/11/23 Range/Units 03:43 03:43 RBC 3.59 L (3.80-5.40) m/uL Hgb 9.0 L (11.4-16.0) gm/dL Hct 29.4 L (34.0-46.0) % MCHC 30.6 L (31.0-37.0) g/dL RDW 15.8 H (11.5-15.5) % Monocytes # 1.1 H (0-1.0) k/uL Sodium 134 L (137-145) mmol/L Calcium 7.9 L (8.4-10.2) mg/dL Total Protein 4.8 L (6.3-8.2) g/dL Albumin 2.6 L (3.5-5.0) g/dL Microbiology - Last 24 Hours (Table) 10/06/23 05:16 Blood Culture - Final Blood 10/06/23 05:01 Blood Culture - Final Blood 10/07/23 17:58 Blood Culture - Preliminary Blood Assessment and Plan (1) Leukocytosis Current Visit: Yes Status: Acute Code(s): D72.829 - ELEVATED WHITE BLOOD CELL COUNT, UNSPECIFIED SNOMED Code(s): 746944388 (2) Pneumonia Current Visit: Yes Status: Acute Code(s): J18.9 - PNEUMONIA, UNSPECIFIED ORGANISM SNOMED Code(s): 210405319 Plan: 1patient presented to hospital with sepsis in this patient who did have a fever tachycardia elevated lactic acid source likely pneumonia with a question of community-acquired versus resistant gram-negative/gram-positive pathogen 2-did have elevated procalcitonin of 22 blood and sputum cultures currently growing E. coli it is a sensitive pathogen 3-patient did have normalization of the white count and slowly clinically improving to continue with Unasyn while inpatient will be able to finish therapy with oral Augmentin Dictation was produced using [employer] dictation software. please excuse any grammatical, word or spelling errors. Time with Patient: Less than 30
[2023-10-12 07:46] LABS: Basophils % (A) 1 %; Eosinophils # (A) 0.3 k/uL (0-0.7); Eosinophils % (A) 4 %; HCT 30.5 % (34.0-46.0); HGB 9.5 gm/dL (11.4-16.0); Hypochromasia Slight; Lymphocytes # (A) 0.7 k/uL (1.0-4.8); Lymphocytes % (A) 8 %; MCH 25.3 pg (25.0-35.0); MCV 81.6 fL (80.0-100.0); Mean Platelet Volume 8.4; Monocytes # (A) 0.7 k/uL (0-1.0); Monocytes % (A) 8 %; Neutrophils # (A) 6.7 k/uL (1.3-7.7); Neutrophils % (A) 77 %; Platelet Count 264 k/uL (150-450); RBC 3.74 m/uL (3.80-5.40); RDW 15.7 % (11.5-15.5); WBC 8.6 k/uL (3.8-10.6)
[2023-10-12 08:11] LABS: ALT 41 U/L (4-34); AST 43 U/L (14-36); African American GFR (CKD) >90 (>60 ml/min/1.73 sqM); Albumin 2.7 g/dL (3.5-5.0); Alkaline Phosphatase 82 U/L (38-126); Anion Gap 4 mmol/L; Blood Urea Nitrogen 10 mg/dL (7-17); Calcium 8.3 mg/dL (8.4-10.2); Carbon Dioxide 28 mmol/L (22-30); Chloride 105 mmol/L (98-107); Glucose 93 mg/dL (74-99); Magnesium 1.9 mg/dL (1.6-2.3); Non-African American GFR(CKD) >90 (>60 ml/min/1.73 sqM); Potassium 3.3 mmol/L (3.5-5.1); Sodium 137 mmol/L (137-145); Total Bilirubin 0.8 mg/dL (0.2-1.3)
[2023-10-12] MEDS: POTASSIUM CHLORIDE ER 20 MEQ TAB.ER PO ONE (11:17)
--- NOTE | 2023-10-12 12:11 | P.PN ---
Subjective Progress Note Date: 10/12/23 Principal diagnosis: Acute left lower lobe pneumonia: Community-acquired, although possible aspiration pneumonia is in the differential. This is a 78-year-old female patient who got sick within the past 24 hours. According to the , the patient had an episode of choking on food material at home few days back. Over the past 24 hours, she felt weak, lethargic and she was also having increased congested cough. No history of lung disease. No previous episodes of pneumonia. No previous history of aspiration. Chest x-ray shows an extensive airspace disease in the left lower lobe. Hemodynamically stable. White cell 5.3, normal coagulation profile, BUN is 18 with a creatinine of 0.7. Initial lactic acid level was at 5.2 dropped down to 2.6. The viral screen has been negative. Troponins are negative. LFTs are normal. Electrolytes show a component of non-anion gap metabolic acidosis with a serum bicarb of 19, BUN of 18 with a creatinine of 0.77. The patient is currently on Zosyn and Zithromax. She is currently on oxygen at 5 L with a pulse ox of 95%. She is lethargic and she is able to communicate. Family is at the bedside. Patient was evaluated today on 10/07/2023, feeling much better since admission, breathing a lot easier, chest x-ray is actually showing improvement in her left lower lobe infiltrate continues to have leukocytosis with WBC count of 14.9 hemoglobin is 8.8 electrolytes are normal renal profile is normal, clinically however the patient is feeling better, O2 saturation is 100% on 2 L nasal cannula it was 93% on room air sputum cultures and blood cultures remain negative so far Patient was evaluated today on 10/08/2023, I saw this patient yesterday, and she was doing quite well. She was on 2 L nasal cannula, was not in any distress. However couple of hours after I saw the patient, I was notified by the nurse that her primary care physician is concerned about the patient and she was looking pale she was short of breath, and he recommended immediate transfer to the ICU. I did not get a chance to go and evaluate the patient on the floor again, however based on the insistence of her primary care, I recommended tra nsfer to the ICU, check ABG, and to monitor the patient in the ICU overnight. Shortly after she arrived to the ICU, her pO2 did not seem quite bad, she was relatively hypoxic which is expected considering her pneumonia this was done on 2 L nasal cannula and her ABG showed a pO2 of 43 pCO2 of 3 0 pH of 7.46, remind you patient had extensive pneumonia. In the ICU she was placed on 6 L nasal cannula, she looked very comfortable, she was hemodynamically stable, and in no distress. Hence I kept the patient in the ICU overnight, saw the patient today, she is doing much better, not in any distress, patient had an episode of atrial fibrillation, seen by cardiology, placed on Cardizem, and plan to transition Cardizem to oral instead of IV. Patient did not seem to be in any distress to me, hence I plan to transfer the patient back to the medical floor/3 S. Labs today show WBC of 13.8 hemoglobin of 9, Basic metabolic profile is relatively normal bicarb is 17 BUN is 15 creatinine 0.49 chest x-ray today continues to show extensive left-sided pneumonia involving the left lower lobe, lingula, and to some extent the left upper lobe Patient was evaluated today on 10/09/2023, patient remains in the ICU, patient just came back from EGD which showed mostly erosive gastritis and hiatal hernia. She is on 4 L nasal cannula, hemoglobin today is 8.8, patient remains on vancomycin and cefepime for left lower lobe extensive pneumonia, chest x-ray today is showing evidence of worsening interstitial edema, hence I cut down her IV fluid to KVO, and will give the patient a trial of diuretics/Lasix 40 mg IV push x 1. Clinically the patient seems to feel and to look better than what is noted on the chest x-ray. Echocardiogram on this admission showed good LV function 55 to 60% ejection fraction. Nonetheless the chest x-ray is concerning to me, could be a worsening aspiration pneumonia could also be some interstitial edema, patient does have history of moderate mitral regurgitation which could be a contributing factor to her interstitial edema as noted on the chest x-ray today. Patient was evaluated today on 10/10/2023, remains in the ICU as an overflow. Patient is feeling much better, breathing a lot easier, she is actually now on room air, and her O2 saturation is 93%. Patient responded well to Lasix yesterday, and diuresed over 3 L hardly any pulmonary symptoms, however her est x-ray continues to show bilateral infiltrates/interstitial edema. Her chest x-ray findings do not correlate with her clinical findings hence I am suggesting cutting down the Lasix to once a day instead of twice a day, and continue antibiotics for her pneumonia. In the meantime the patient could be considered to transfer to the cardiac floor instead of being in the ICU her WBC count is 9.9 hemoglobin 8.5, Basic metabolic profile is normal and renal profile is normal Patient was reevaluated today on 10/11/2023, remains in the ICU, remains on antibiotics and on diuretics, clinically the patient is feeling great, her chest x-ray yesterday has not shown dramatic improvement. Patient is on room air, does not seem to be in any distress. Awaiting to be transferred to a medical floor/3 S. Her sputum has been positive for E. coli. And the patient remains on antibiotics. WBC count is 10.2 hemoglobin is 9 basic metabolic profile is normal and renal profile is normal. Patient remains in sinus rhythm, no further episodes of atrial fibrillation. Patient was kept on anticoagulation therapy, urine output has been excellent, patient remains on Lasix 40 mg IV push daily Patient was reevaluated today on 10/12/2023, presently on 3 S., patient is doing well, on room air, relatively asymptomatic hardly any pulmonary symptoms no cough no wheezing no shortness of breath patient is afebrile, blood pressure is stable 135/66, she is saturating 93% on room air. No fever over the last couple of days WBC count is 8.6 hemoglobin 9.5 basic metabolic profile is normal renal profile is normal, her sputum cultures came back positive for E. coli and Kanchan albicans. Blood cultures have been negativeChest x-ray from 10/09 showed patchy perihilar and basilar infiltrates left greater than right Objective - Vital Signs Vital signs: Vital Signs Temp 98.4 F 10/12/23 11:19 Pulse 91 10/12/23 11:19 Resp 16 10/12/23 11:19 BP 135/66 10/12/23 11:19 Pulse Ox 93 L 10/12/23 11:19 FiO2 99 10/10/23 16:00 Intake & Output 10/11/23 10/12/23 10/12/23 18:59 06:59 18:59 Intake Total 658 358 Output Total 1600 300 350 Balance -942 -300 8 Weight 79.7 kg Intake: IV 130 120 0.9 30 Ampicillin-Sulbactam 3 gm 100 100 In Sodium Chloride 0.9% 100 ml @ 200 mls/hr IVPB Q6HR [facility] Rx#:[id number] Invasive Line 4 20 Intake, IV Titration 50 120 Amount Sodium Chloride 0.9% 1, 50 120 000 ml @ 10 mls/hr IV . Q24H [facility] Rx#:[id number] Oral [id number] Output: Urine 1600 300 350 Other: Voiding Method External Catheter Bedside Commode Bedside Commode # Voids 1 1 1 # Bowel Movements 1 1 1 - Exam General: Revealed 78-year-old female in no distress, on room air Skin: Skin is warm and dry and no rashes or lesions are noted. Eye: Pupils are equal, round and reactive to light, extra-ocular movements are intact; there is normal conjunctiva bilaterally. Ears, nose, mouth and throat: There are moist mucous membranes and no oral lesions. Neck: The neck is supple, there is no tenderness or JVD. Cardiovascular: There is a regular rate and rhythm. 2/6 systolic murmur at the left lower sternal border Respiratory: Minimal crackles at the bases Gastrointestinal: Soft, non-distended, non-tender abdomen without masses or organomegaly noted. There is no rebound or guarding present. Bowel sounds are unremarkable. Back: There is no tenderness to palpation in the midline. There is no obvious deformity. Musculoskeletal: Normal ROM, no tenderness, There is no pedal edema. There is no calf tenderness or swelling. No cords were appreciated. Neurological: CN II-XII intact, Cranial nerves III through XII are intact. There are no obvious motor or sensory deficits. Coordination appears grossly intact. Speech is normal. Psychiatric: Cooperative, appropriate mood & affect, normal judgment. - Labs CBC & Chem 7: 10/12/23 07:11 10/12/23 07:11 Labs: Abnormal Lab Results - Last 24 Hours (Table) 10/12/23 10/12/23 Range/Units 07:11 07:11 RBC 3.74 L (3.80-5.40) m/uL Hgb 9.5 L (11.4-16.0) gm/dL Hct 30.5 L (34.0-46.0) % RDW 15.7 H (11.5-15.5) % Lymphocytes # 0.7 L (1.0-4.8) k/uL Potassium 3.3 L (3.5-5.1) mmol/L Calcium 8.3 L (8.4-10.2) mg/dL AST 43 H (14-36) U/L ALT 41 H (4-34) U/L Total Protein 5.0 L (6.3-8.2) g/dL Albumin 2.7 L (3.5-5.0) g/dL Microbiology - Last 24 Hours (Table) 10/06/23 05:16 Blood Culture - Final Blood 10/06/23 05:01 Blood Culture - Final Blood Assessment and Plan Assessment: Impression: Acute left lower lobe pneumonia, sputum is positive for E. coli, sensitive to all antibiotics.. Acute hypoxic respiratory failure secondary to above History of hiatal hernia Dyslipidemia Degenerative joint disease Chronic neuropathic pain Coffee-ground emesis, secondary to erosive gastritis as noted on EGD New onset atrial fibrillation Moderate mitral regurgitation as noted on echocardiogram Possible acute congestive heart failure, with preserved ejection fraction, Recommendation: Continue antibiotics Continue Lasix 40 mg IV push daily, continue to monitor electrolytes and renal profile on a daily basis Keep IV fluids at KVO Continue bronchodilators continue GI and DVT prophylaxis Plan to repeat chest x-ray in a.m., Could be considered for discharge in the next 2 days assuming chest x-ray is not showing any worsening of infiltrates Will continue to follow Time with Patient: Less than 30
--- NOTE | 2023-10-12 13:47 | P.PN ---
Subjective HISTORY OF PRESENT ILLNESS: The patient is an 78-year-old female with no prior documented history of CAD who presented with symptoms of cough, aspiration pneumonia and weakness. She was transferred to the ICU and had atrial fibrillation with episodes of rapid ventricular response. She is not aware of the arrhythmia. She has no prior cardiac history. She has fractured her hip about a year ago but prior to that has been active without any symptoms of chest discomfort or dyspnea. She denies any history of dizziness, palpitations or syncope. Her breathing is better. She denies any significant peripheral edema, no PND or orthopnea. She was started on IV Cardizem. On admission she was lethargic but appears to be awake and alert today with no complaints. She is a non-smoker, she has a history of hyperlipidemia. October 08: The patient is feeling well this morning, she feels tired but otherwise has no chest discomfort. She continues to be in sinus mechanism. She continues to have dyspnea and some cough. She had upper GI bleeding and she is scheduled to undergo endoscopy. She had no further episodes of atrial fibrillation. Her echocardiogram revealed a preserved systolic function with moderate mitral regurgitation. Her urinary output has been good. October 09: The patient is feeling better today. She underwent upper endoscopy yesterday and was found to have a hiatal hernia but no active bleeding. She has not had any further episodes of GI bleeding. Hemodynamically she is stable. She is in sinus mechanism with no further atrial fibrillation. Her urinary output has been good. She is on no vasopressors. She is afebrile. She is laying supine. October 10: The patient feels better today, sitting up, she feels that her breathing and cough are better. She denies any chest discomfort, dizziness or palpitations. She continues to be in normal sinus rhythm with no further atrial fibrillation. She was reinitiated on anticoagulation yesterday. Urine output has been stable. Hemodynamically she is stable. 10/12/2023 Patient examined this morning at the bedside. Patient currently denies chest pain or pressure. She denies shortness of breath. She remains on IV diuretics. Patient is maintaining sinus mechanism. She has been resumed on her Eliquis. Hemoglobin today 9.5. PHYSICAL EXAM: VITAL SIGNS: Reviewed. GENERAL: Well-developed in no acute distress. NECK: Supple. No JVD or thyromegaly LUNGS: Respirations even and unlabored. Lungs essentially clear to auscultation bilaterally. HEART: Regular rate and rhythm. S1 and S2 heard. EXTREMITIES: Normal range of motion. No clubbing or cyanosis. Peripheral pulses intact. No lower extremity edema ASSESSMENT: Acute left lower lobe pneumonia Acute hypoxic respiratory failure, secondary to above Paroxysmal atrial fibrillation, currently maintaining sinus mechanism Hyperlipidemia Acute upper GI bleed with anemia and 1 episode of coffee-ground emesis status post EGD revealing antral gastritis, large paraesophageal hiatal hernia and mild esophagitis Possible mild acute CHF with preserved EF, currently euvolemic PLAN: Continue IV Lasix. Begin oral Lasix Continue additional cardiac medications Continue telemetry monitoring Possible discharge within the next 24 to 48 hours Further recommendations pending patient course Nurse practitioner note has been reviewed by physician. Signing provider agrees with the documented findings, assessment, and plan of care documented by [employer] as a scribe. Objective - Vital Signs Vital signs: Vital Signs Temp 98.4 F 10/12/23 09:31 Pulse 88 10/12/23 09:31 Resp 18 10/12/23 09:31 BP 128/67 10/12/23 09:31 Pulse Ox 93 L 10/12/23 09:31 FiO2 99 10/10/23 16:00 Intake & Output 10/11/23 10/12/23 10/12/23 18:59 06:59 18:59 Intake Total 658 138 Output Total 1600 300 Balance -942 -300 138 Weight 79.7 kg Intake: IV 130 20 0.9 30 Ampicillin-Sulbactam 3 gm 100 In Sodium Chloride 0.9% 100 ml @ 200 mls/hr IVPB Q6HR [facility] Rx#:[id number] Invasive Line 4 20 Intake, IV Titration 50 Amount Sodium Chloride 0.9% 1, 50 000 ml @ 10 mls/hr IV . Q24H [facility] Rx#:[id number] Oral [id number] Output: Urine 1600 300 Other: Voiding Method External Catheter Bedside Commode Bedside Commode # Voids 1 1 1 # Bowel Movements 1 1 1 - Labs CBC & Chem 7: 10/12/23 07:11 10/12/23 07:11 Labs: Abnormal Lab Results - Last 24 Hours (Table) 10/12/23 10/12/23 Range/Units 07:11 07:11 RBC 3.74 L (3.80-5.40) m/uL Hgb 9.5 L (11.4-16.0) gm/dL Hct 30.5 L (34.0-46.0) % RDW 15.7 H (11.5-15.5) % Lymphocytes # 0.7 L (1.0-4.8) k/uL Potassium 3.3 L (3.5-5.1) mmol/L Calcium 8.3 L (8.4-10.2) mg/dL AST 43 H (14-36) U/L ALT 41 H (4-34) U/L Total Protein 5.0 L (6.3-8.2) g/dL Albumin 2.7 L (3.5-5.0) g/dL Microbiology - Last 24 Hours (Table) 10/06/23 05:16 Blood Culture - Final Blood 10/06/23 05:01 Blood Culture - Final Blood
--- NOTE | 2023-10-12 14:39 | P.PN ---
Subjective Progress Note Date: 10/12/23 HISTORY OF PRESENT ILLNESS: This is an 78 -year-old female with a previous medical history sign ificant for hyperlipidemia, GERD with esophagitis, osteoarthritis, patient was in her usual state of health till about 2 days ago when she had a coughing episode while she was eating, according to her she probably choked on her food, and she was complaining of some indigestion at that time, patient felt better after few hours, and last night she was having fever and chills and she was coughing quite a bit of phlegm associated with increased sore throat, so she was brought into the emergency department at [facility] today because of shortness of breath, and because is not feeling good, she appeared to be quite drowsy, she denies any sick contact, she denies any diarrhea, she did have 1 episode of vomiting, she does cough up some black stuff, she did receive Pepto- Bismol from her earlier yesterday, patient was seen and evaluated in the emergency department, she was in respiratory distress, she did have lactic acidosis with a lactic acid of 5.6, she was given IV fluid resuscitation, her chest x-ray showed significant pneumonia in the left side involving the upper lobe and lower lobe, patient was started on oxygen at 4 L nasal cannula, her oxygen saturation was around 95%, patient appears to be breathing shallower, pulmonary consultation was obtained from Dr. Peng, patient did receive Zithromax as well as Zosyn in the ER, she will need to be admitted to the hospital for further evaluation recommendation she will be started nebulized treatment in the form of Albuterol 3ml nebulization 4 times every day, also she will be started on Mucinex 600 mg orally twice every day, she will have sputum culture, we will check urine Legionella antigen, mycoplasma antibody IgG and IgM, I will broaden the antibiotic to rule out any MRSA pneumonia started on vancomycin 1000 mg x 1 and pharmacy to dose its peak and trough, and as stated earlier pulmonary consultation for further evaluation and recommendation for possible ICU care, I will consult infectious disease as well Dr. Mo. 10/06: Patient continues to be somewhat short of breath, she continues to be on o xygen support, she appears to be pale, she appears to be confused, she appears in severe sepsis, I have asked the nursing staff to order blood gases, and lactic acid, she will be transferred to the intensive care unit for further evaluation and recommendation, continue IV fluid resuscitation, continue patient on IV antibiotic in the form of vancomycin as well as cefepime per infectious disease recommendation, we will continue to monitor the patient very closely, I believe the patient will end up on the ventilator due to her altered level of consciousness. 10/07: Patient is laying down in bed in no apparent distress, yesterday she went into atrial fibrillation with rapid ventricular response, she initially was started on a Cardizem drip, and after that she was converted back to sinus rhythm, she was seen in consultation by cardiology, she will be started on Eliquis 5 mg orally twice every day for stroke prevention, patient is at 3 L nasal cannula, her oxygen saturation 98%, she is doing better, chest x-ray appears worse, community nurse recommended for the patient to be transferred to the telemetry unit at this time, patient appears in better spirits today, will continue current treatment plan, continue the patient on IV antibiotic in the form of vancomycin as well as cefepime, infectious and pulmonary medicine are following. 10/08: Patient underwent EGD today by Dr. Nelson showed mild gastritis, no evidence of any active gastric bleed at this time, her hemoglobin is stable at t his time, will continue to hold Eliquis for another 24 hours, restarted back tomorrow morning, patient has been in sinus rhythm at this point in time, she denies any chest pain, she continues to have some coughing minimal from production, sputum cultures positive for E. coli, she was switched to Unasyn per infectious disease she was taken on vancomycin as well as cefepime, will continue to monitor the patient very closely, she will be kept in the ICU for another 24 hours, patient has been on 2 L nasal cannula, will continue with that continue with aggressive pulmonary toileting as well 10/09: Patient is laying down in bed in no apparent distress, she denies any chest pain, she continues to have minimal coughing, she continues to use his incentive spirometer, she has no abdominal pain, nausea vomiting or diarrhea, she had a good bowel movement, she is awaiting to go to a telemetry note in the next 24 hours, she has not been using the oxygen today, appears to be a lot better, her x-ray continues to show pneumonia on the left side, we will continue to monitor the patient very closely, continue IV antibiotic in the form of Unasyn 3 g IV piggyback every 6 hours, sputum culture showed E. coli likely aspiration pneumonia. 10/10: Patient is being moved to a telemetry unit today, she denies any headache at this time, she appears to be somewhat upset, because she wants to go home, she went into atrial fibrillation with rapid ventricular response, she did receive an extra dose of Cardizem 60 mg by cardiology, continue Eliquis 5 mg orally twice every day for stroke prevention, monitor the patient very closely, patient continues on IV antibiotic in the form of Unasyn 3 g IV piggyback every 6 hours, patient is not requiring any oxygen, patient has been followed by pulmonary medicine and cardiology along with infectious disease, there is no new changes at this time, she did have a good bowel movement, no diarrhea, no soreness in her mouth, her thrush is much better, she has no edema in both lower extremities, her Lasix is down to 40 mg IV push every 24 hours, repeat the patient labs including CBC CMP and magnesium level tomorrow morning. 10/11: Patient remains on 3 S. She is currently laying in bed in no acute distress. Patient denies chest pain or shortness of breath. Lung sounds relatively clear diminished bilateral bases. Continues Cardizem 3 times daily, continue Eliquis 5 mg twice daily, and Unasyn 3 g IV piggyback every 6 hours. Patient is satting well on room air. We will repeat labs tomorrow morning. Patient likely to be discharged home within the next 24 to 48 hours. REVIEW OF SYSTEMS: Constitutional: Awake alert and oriented no acute distress. Gastrointestinal no abdominal pain, nausea vomiting or diarrhea she appears to be a lot stronger she is visiting with her friend.ve for fever, positive for chills, no night sweats. No weight change. positive for weakness, positive for fatigue and lethargy lethargy. No daytime sleepiness. HEENT: No headache. No blurred vision or double vision, no loss of vision. No loss of Hearing, no ringing in the ears, no dizziness. No nasal drainage or congestion. No epistaxis. No sore throat. Lungs: no shortness of breath, positive for coughing , positive for sputum production. No wheezing. Reports dyspnea with activity. Cardiovascular: No chest pain, no lower extremity edema. No palpitations. No paroxysmal nocturnal dyspnea. No orthopnea. No lightheadedness or dizziness. No syncopal episodes. Abdominal: Reports no abdominal pain. No nausea, vomiting. No diarrhea. No constipation. No bloody or tarry stools reports loss of appetite. Genitourinary: No dysuria, increased frequency, urgency. No urinary retention. Musculoskeletal: No myalgias. No muscle weakness, no gait dysfunction, no frequent falls. positive for back pain. No neck pain, positive for left hip pain Integumentary: No wounds, no lesions. No rash or pruritus. No unusual bruising. No change in hair or nails. Neurologic: No aphasia. No facial droop. positive for change in mentation. No head injury. No headache. No paralysis. No paresthesia. Psychiatric: No depression. No anxiety. No mood swings. Endocrine: No abnormal blood sugars. No weight change. PHYSICAL EXAMINATION: General: 78-year-old female laying down in bed in no respiratory distress. HEENT: Head is atraumatic, normocephalic, pupils were equal round reactive to light and recommendation, extraocular muscle movement were intact, sclera nonicteric, conjunctivae were pale, mucous membranes of the mouth are somewhat dry. Neck: Supple, no JVP, normal carotid upstroke bilaterally, no lymphadenopathy. Chest: Decreased breath sounds at the bases, no rhonchi, no expiratory wheezes, no chest wall tenderness, no intercostal retractions. Heart: First heart sound is normal, second heart sounds normal there is DARREN 2/6 located at the left sternal border Abdomen: Soft, nontender, nondistended, positive bowel sounds. Extremities: There is no edema no calf tenderness DP +2 bilaterally Neurologic examination: Patient is awake alert and oriented x 3, cranial nerves II to XII appear gross intact, muscle power 5 out of 5 in upper and lower extremities bilaterally. ASSESSMENT AND PLAN: 1. Acute hypoxemic respiratory failure due to multilobar left sided pneumonia with E. coli, likely aspiration pneumonia. Continue patient on Unasyn 3 g IV piggyback every 6 hours, patient is currently off oxygen, continue spirometer, increase activity. 2. Lactic acidosis likely due to pneumonia with severe sepsis. Lactic acid is back to normal. 3. Metabolic encephalopathy due to severe sepsis due to underlying pneumonia. She is back to normal patient was started back on her gabapentin 300 mg orally 3 times every day. 4. Atrial fibrillation with rapid ventricle response continue with Cardizem 30 mg orally 3 times every day, start the patient on Eliquis 5 mg orally twice every day. 5. Coffee-ground emesis with acute symptomatic anemia. Status post EGD that showed mild gastritis, post biopsies. No evidence of active bleeding. Continue Protonix restart Eliquis tomorrow morning. 6. Hyperlipidemia. Continue patient on atorvastatin 40 mg once every day, monitor the patient with a panel keep the patient LDL 55-70. 7. Anxiety/depressive disorder. Continue patient on Lexapro 5 mg orally once every day. 8. Vitamin D deficiency. Continue vitamin D supplement. 9. Osteoarthritis. Continue current pain management. 10. GERD with hiatal hernia. Continue patient on Protonix 40 mg IV push every 12 hours, discontinue famotidine. 11. Spondylosis of the lumbar spine. Patient was started back on her gabap entin 300 mg orally 3 times every day. 12. Acute on chronic diastolic heart failure. Continue Lasix 40 mg IV push every 24 hours, monitor the patient labs tomorrow morning, continue with Cardizem 30 mg orally 3 times every day. 13. DVT prophylaxis. Continue Lovenox for now 40 mg subcutaneous every 24 hours. 14. GI prophylaxis. Continue Protonix 40 mg IV push every 12 hours. 15. Thrush. Continue nystatin swish and swallow 4 times every day. 16. Likely discharge within the next 24 to 48 hours. Impression and plan of care have been directed as dictated by the signing physician. Nellie Saenz, nurse practitioner acting as scribe for signing physician. Objective - Vital Signs Vital signs: Vital Signs Temp 98.4 F 10/12/23 11:19 Pulse 91 10/12/23 11:19 Resp 16 10/12/23 11:19 BP 135/66 10/12/23 11:19 Pulse Ox 93 L 10/12/23 11:19 FiO2 99 10/10/23 16:00 Intake & Output 10/11/23 10/12/23 10/12/23 18:59 06:59 18:59 Intake Total 658 358 Output Total 1600 300 350 Balance -942 -300 8 Weight 79.7 kg Intake: IV 130 120 0.9 30 Ampicillin-Sulbactam 3 gm 100 100 In Sodium Chloride 0.9% 100 ml @ 200 mls/hr IVPB Q6HR [facility] Rx#:[id number] Invasive Line 4 20 Intake, IV Titration 50 120 Amount Sodium Chloride 0.9% 1, 50 120 000 ml @ 10 mls/hr IV . Q24H [facility] Rx#:[id number] Oral [id number] Output: Urine 1600 300 350 Other: Voiding Method External Catheter Bedside Commode Bedside Commode # Voids 1 1 1 # Bowel Movements 1 1 1 - Labs CBC & Chem 7: 10/12/23 07:11 10/12/23 07:11 Labs: Abnormal Lab Results - Last 24 Hours (Table) 10/12/23 10/12/23 Range/Units 07:11 07:11 RBC 3.74 L (3.80-5.40) m/uL Hgb 9.5 L (11.4-16.0) gm/dL Hct 30.5 L (34.0-46.0) % RDW 15.7 H (11.5-15.5) % Lymphocytes # 0.7 L (1.0-4.8) k/uL Potassium 3.3 L (3.5-5.1) mmol/L Calcium 8.3 L (8.4-10.2) mg/dL AST 43 H (14-36) U/L ALT 41 H (4-34) U/L Total Protein 5.0 L (6.3-8.2) g/dL Albumin 2.7 L (3.5-5.0) g/dL Microbiology - Last 24 Hours (Table) 10/06/23 05:16 Blood Culture - Final Blood 10/06/23 05:01 Blood Culture - Final Blood
[2023-10-12 15:20] VITALS: RESP 18
--- NOTE | 2023-10-12 16:38 | P.PN ---
Subjective Progress Note Date: 10/12/23 Principal diagnosis: Reason for follow-up is pneumonia and Patient is a 78-year-old female with a past medical history significant for hyperlipidemia chronic back pain abdomen hernia presenting to the hospital for evaluation of increasing shortness of breath and cough patient has been diagnosed with sepsis secondary pneumonia and admitted to hospital. On today's evaluation that is 10/12/2023,the patient remains to be afebrile, patient is on room air not requiring supplemental oxygen and denies any shortness of breath no chest pain and the cough has decreased in i ntensity.Patient denies having any nausea or vomiting, no abdominal pain and no diarrhea has been reported, patient mention feeling better. Patient white count is 8.6, creatinine 0.50 Objective - Vital Signs Vital signs: Vital Signs Temp 98.1 F 10/12/23 15:19 Pulse 90 10/12/23 15:19 Resp 18 10/12/23 15:19 BP 128/68 10/12/23 15:19 Pulse Ox 93 L 10/12/23 15:19 FiO2 99 10/10/23 16:00 Intake & Output 10/11/23 10/12/23 10/12/23 18:59 06:59 18:59 Intake Total 658 468 Output Total 1600 300 750 Balance -942 300 -584 Weight 79.7 kg Intake: IV 130 230 0.9 30 Ampicillin-Sulbactam 3 gm 100 200 In Sodium Chloride 0.9% 100 ml @ 200 mls/hr IVPB Q6HR [facility] Rx#:[id number] Invasive Line 4 30 Intake, IV Titration 50 120 Amount Sodium Chloride 0.9% 1, 50 120 000 ml @ 10 mls/hr IV . Q24H [facility] Rx#:[id number] Oral [id number] Output: Urine 1600 300 750 Other: Voiding Method External Catheter Bedside Commode Bedside Commode # Voids 1 1 1 # Bowel Movements 1 1 1 - Exam GENERAL DESCRIPTION: An elderly female lying in bed in no distress RESPIRATORY SYSTEM: Unlabored breathing , decreased breath sounds at bases HEART: S1 S2 regular rate and rhythm , ABDOMEN: Soft , no tenderness EXTREMITIES: No edema feet - Labs CBC & Chem 7: 10/12/23 07:11 10/12/23 07:11 Labs: Abnormal Lab Results - Last 24 Hours (Table) 10/12/23 10/12/23 Range/Units 07:11 07:11 RBC 3.74 L (3.80-5.40) m/uL Hgb 9.5 L (11.4-16.0) gm/dL Hct 30.5 L (34.0-46.0) % RDW 15.7 H (11.5-15.5) % Lymphocytes # 0.7 L (1.0-4.8) k/uL Potassium 3.3 L (3.5-5.1) mmol/L Calcium 8.3 L (8.4-10.2) mg/dL AST 43 H (14-36) U/L ALT 41 H (4-34) U/L Total Protein 5.0 L (6.3-8.2) g/dL Albumin 2.7 L (3.5-5.0) g/dL Microbiology - Last 24 Hours (Table) 10/06/23 05:16 Blood Culture - Final Blood 10/06/23 05:01 Blood Culture - Final Blood Assessment and Plan (1) Leukocytosis Current Visit: Yes Status: Acute Code(s): D72.829 - ELEVATED WHITE BLOOD CELL COUNT, UNSPECIFIED SNOMED Code(s): 681683481 (2) Pneumonia Current Visit: Yes Status: Acute Code(s): J18.9 - PNEUMONIA, UNSPECIFIED ORGANISM SNOMED Code(s): 776608259 Plan: 1patient presented to hospital with sepsis in this patient who did have a fever tachycardia elevated lactic acid source likely pneumonia with a question of community-acquired versus resistant gram-negative/gram-positive pathogen 2-did have elevated procalcitonin of 22 blood and sputum cultures currently growing E. coli it is a sensitive pathogen 3-patient remains to be afebrile and white count normalized, patient also showing clinical improvement continue with Unasyn while inpatient Dictation was produced using [employer] dictation software. please excuse any grammatical, word or spelling errors. Time with Patient: Less than 30
[2023-10-13 07:13] LABS: Basophils # (A) 0.1 k/uL (0-0.2); Basophils % (A) 1 %; Eosinophils # (A) 0.5 k/uL (0-0.7); Eosinophils % (A) 5 %; HCT 31.7 % (34.0-46.0); HGB 9.8 gm/dL (11.4-16.0); Hypochromasia Moderate; Lymphocytes # (A) 1.2 k/uL (1.0-4.8); Lymphocytes % (A) 13 %; MCH 25.3 pg (25.0-35.0); MCHC 30.8 g/dL (31.0-37.0); MCV 82.2 fL (80.0-100.0); Mean Platelet Volume 8.7; Monocytes # (A) 0.6 k/uL (0-1.0); Monocytes % (A) 7 %; Neutrophils # (A) 6.3 k/uL (1.3-7.7); Neutrophils % (A) 71 %; Platelet Count 346 k/uL (150-450); RBC 3.86 m/uL (3.80-5.40); RDW 15.4 % (11.5-15.5); WBC 8.9 k/uL (3.8-10.6)
[2023-10-13 07:15] LABS: ALT 58 U/L (4-34); AST 54 U/L (14-36); African American GFR (CKD) >90 (>60 ml/min/1.73 sqM); Albumin 2.9 g/dL (3.5-5.0); Alkaline Phosphatase 88 U/L (38-126); Anion Gap 6 mmol/L; Blood Urea Nitrogen 11 mg/dL (7-17); Calcium 8.5 mg/dL (8.4-10.2); Carbon Dioxide 28 mmol/L (22-30); Chloride 104 mmol/L (98-107); Glucose 88 mg/dL (74-99); Non-African American GFR(CKD) >90 (>60 ml/min/1.73 sqM); Potassium 3.8 mmol/L (3.5-5.1); Sodium 138 mmol/L (137-145); Total Bilirubin 0.8 mg/dL (0.2-1.3); Total Protein 5.3 g/dL (6.3-8.2)
--- NOTE | 2023-10-13 07:46 | XR ---
EXAMINATION TYPE: XR chest 1V portable DATE OF EXAM: 10/13/2023 COMPARISON: 10/10/2023 INDICATION: Pneumonia TECHNIQUE: Single frontal view of the chest is obtained. FINDINGS: The heart size is normal. The pulmonary vasculature is normal. Left lower lobe infiltrate is present. Finding is improving from comparison. Continued follow-up is r ecommended IMPRESSION: 1. Improving left lower lobe infiltrate. Correlate for pneumonia. Continued follow-up is recommended.
[2023-10-13] MEDS: FUROSEMIDE 40 MG TAB PO SCH (08:09)
--- NOTE | 2023-10-13 10:37 | P.PN ---
Subjective Progress Note Date: 10/13/23 This is a 78-year-old female patient who got sick within the past 24 hours. According to the , the patient had an episode of choking on food material at home few days back. Over the past 24 hours, she felt weak, lethargic and she was also having increased congested cough. No history of lung disease. No previous episodes of pneumonia. No previous history of aspiration. Chest x-ray shows an extensive airspace disease in the left lower lobe. Hemodynamically stable. White cell 5.3, normal coagulation profile, BUN is 18 with a creatinine of 0.7. Initial lactic acid level was at 5.2 dropped down to 2.6. The viral screen has been negative. Troponins are negative. LFTs are normal. Elec trolytes show a component of non-anion gap metabolic acidosis with a serum bicarb of 19, BUN of 18 with a creatinine of 0.77. The patient is currently on Zosyn and Zithromax. She is currently on oxygen at 5 L with a pulse ox of 95%. She is lethargic and she is able to communicate. Family is at the bedside. Patient was evaluated today on 10/07/2023, feeling much better since admission, breathing a lot easier, chest x-ray is actually showing improvement in her left lower lobe infiltrate continues to have leukocytosis with WBC count of 14.9 hemoglobin is 8.8 electrolytes are normal renal profile is normal, clinically however the patient is feeling better, O2 saturation is 100% on 2 L nasal cannula it was 93% on room air sputum cultures and blood cultures remain negative so far Patient was evaluated today on 10/08/2023, I saw this patient yesterday, and she was doing quite well. She was on 2 L nasal cannula, was not in any distress. However couple of hours after I saw the patient, I was notified by the nurse that her primary care physician is concerned about the patient and she was looking pale she was short of breath, and he recommended immediate transfer to the ICU. I did not get a chance to go and evaluate the patient on the floor again, however based on the insistence of her primary care, I recommended transfer to the ICU, check ABG, and to monitor the patient in the ICU overnight. Shortly after she arrived to the ICU, her pO2 did not seem quite bad, she was relatively hypoxic which is expected considering her pneumonia this was done on 2 L nasal cannula and her ABG showed a pO2 of 43 pCO2 of 3 0 pH of 7.46, remind you patient had extensive pneumonia. In the ICU she was placed on 6 L nasal cannula, she looked very comfortable, she was hemodynamically stable, and in no distress. Hence I kept the patient in the ICU overnight, saw the patient today, she is doing much better, not in any distress, patient had an episode of atrial fibrillation, seen by cardiology, placed on Cardizem, and plan to transition Cardizem to oral instead of IV. Patient did not seem to be in any distress to me, hence I plan to transfer the patient back to the medical floor/3 S. Labs today show WBC of 13.8 hemoglobin of 9, Basic metabolic profile is relatively normal bicarb is 17 BUN is 15 creatinine 0.49 chest x-ray today continues to show extensive left-sided pneumonia involving the left lower lobe, lingula, and to some extent the left upper lobe Patient was evaluated today on 10/09/2023, patient remains in the ICU, patient just came back from EGD which showed mostly erosive gastritis and hiatal hernia. She is on 4 L nasal cannula, hemoglobin today is 8.8, patient remains on vancomycin and cefepime for left lower lobe extensive pneumonia, chest x-ray today is showing evidence of worsening interstitial edema, hence I cut down her IV fluid to KVO, and will give the patient a trial of diuretics/Lasix 40 mg IV push x 1. Clinically the patient seems to feel and to look better than what is noted on the chest x-ray. Echocardiogram on this admission showed good LV f unction 55 to 60% ejection fraction. Nonetheless the chest x-ray is concerning to me, could be a worsening aspiration pneumonia could also be some interstitial edema, patient does have history of moderate mitral regurgitation which could be a contributing factor to her interstitial edema as noted on the chest x-ray today. Patient was evaluated today on 10/10/2023, remains in the ICU as an overflow. Patient is feeling much better, breathing a lot easier, she is actually now on room air, and her O2 saturation is 93%. Patient responded well to Lasix yesterday, and diuresed over 3 L hardly any pulmonary symptoms, however her chest x-ray continues to show bilateral infiltrates/interstitial edema. Her chest x-ray findings do not correlate with her clinical findings hence I am suggesting cutting down the Lasix to once a day instead of twice a day, and continue antibiotics for her pneumonia. In the meantime the patient could be considered to transfer to the cardiac floor instead of being in the ICU her WBC count is 9.9 hemoglobin 8.5, Basic metabolic profile is normal and renal profile is normal Patient was reevaluated today on 10/11/2023, remains in the ICU, remains on antibiotics and on diuretics, clinically the patient is feeling great, her chest x-ray yesterday has not shown dramatic improvement. Patient is on room air, does not seem to be in any distress. Awaiting to be transferred to a medical floor/3 S. Her sputum has been positive for E. coli. And the patient remains on antibiotics. WBC count is 10.2 hemoglobin is 9 basic metabolic profile is normal and renal profile is normal. Patient remains in sinus rhythm, no further episodes of atrial fibrillation. Patient was kept on anticoagulation therapy, urine output has been excellent, patient remains on Lasix 40 mg IV push daily Patient was reevaluated today on 10/12/2023, presently on 3 S., patient is doing well, on room air, relatively asymptomatic hardly any pulmonary symptoms no cough no wheezing no shortness of breath patient is afebrile, blood pressure is stable 135/66, she is saturating 93% on room air. No fever over the last couple of days WBC count is 8.6 hemoglobin 9.5 basic metabolic profile is normal renal profile is normal, her sputum cultures came back positive for E. coli and Kanchan albicans. Blood cultures have been negativeChest x-ray from 10/09 showed patchy perihilar and basilar infiltrates left greater than right The patient was seen today October 13, 2023 in follow-up on the selective care unit. She is currently sitting up in bed. Awake and alert in no acute distress. She is maintaining good O2 saturations in the 90s on room air. X-ray showing significant improvement in the left lower lobe infiltrate. Sputum culture was positive for E. coli and Kanchan. Blood cultures revealed no growth. White count 8.9. Hemoglobin 9.8. Platelets 346. Sodium 138. Potassium 3.8. Bicarb 28. BUN 11. Creatinine 0.53. Glucose 88. She remains on Unasyn. Continued on bronchodilators. Anticoagulated with Eliquis. Remains on oral diuretics. She has been up with assistant paralegal and her walker. Objective - Vital Signs Vital signs: Vital Signs Temp 98.6 F 10/13/23 08:03 Pulse 80 10/13/23 08:15 Resp 18 10/13/23 08:03 BP 147/76 10/13/23 08:03 Pulse Ox 92 L 10/13/23 08:03 FiO2 99 10/10/23 16:00 Intake & Output 10/12/23 10/13/23 10/13/23 18:59 06:59 18:59 Intake Total 808 20 130 Output Total 750 Balance 58 20 130 Intake: IV 230 20 10 Ampicillin-Sulbactam 3 gm 200 In Sodium Chloride 0.9% 100 ml @ 200 mls/hr IVPB Q6HR [facility] Rx#:[id number] Invasive Line 4 30 20 10 Intake, IV Titration 120 Amount Sodium Chloride 0.9% 1, 120 000 ml @ 10 mls/hr IV . Q24H [facility] Rx#:[id number] Oral 458 120 Output: Urine 750 Other: Voiding Method Bedside Commode Bedside Commode Bedside Commode # Voids 1 2 # Bowel Movements 1 1 - Exam GENERAL EXAM: Alert, pleasant 78-year-old female, resting in bed, on room air, comfortable in no apparent distress. HEAD: Normocephalic. EYES: Normal reaction of pupils, equal size. NOSE: Clear with pink turbinates. THROAT: No erythema or exudates. NECK: No masses, no JVD. CHEST: No chest wall deformity. LUNGS: Equal air entry with few crackles in the left lung base. CVS: S1 and S2 normal with no audible murmur, regular rhythm. ABDOMEN: No hepatosplenomegaly, normal bowel sounds, no guarding or rigidity. SPINE: No scoliosis or deformity SKIN: No rashes CENTRAL NERVOUS SYSTEM: No focal deficits, tone is normal in all 4 extremities. EXTREMITIES: There is no peripheral edema. No clubbing, no cyanosis. Peripheral pulses are intact. - Labs CBC & Chem 7: 10/13/23 05:50 10/13/23 05:50 Labs: Abnormal Lab Results - Last 24 Hours (Table) 10/13/23 10/13/23 Range/Units 05:50 05:50 Hgb 9.8 L (11.4-16.0) gm/dL Hct 31.7 L (34.0-46.0) % MCHC 30.8 L (31.0-37.0) g/dL AST 54 H (14-36) U/L ALT 58 H (4-34) U/L Total Protein 5.3 L (6.3-8.2) g/dL Albumin 2.9 L (3.5-5.0) g/dL Microbiology - Last 24 Hours (Table) 10/07/23 17:58 Blood Culture - Final Blood Assessment and Plan Assessment: Acute left lower lobe pneumonia, sputum is positive for E. coli, treated with Unasyn, chest x-ray showing much improvement Acute hypoxic respiratory failure secondary to above, recovered and on room air History of hiatal hernia Dyslipidemia Degenerative joint disease Chronic neuropathic pain Coffee-ground emesis, secondary to erosive gastritis as noted on EGD New onset atrial fibrillation, anticoagulated with Eliquis Moderate mitral regurgitation as noted on echocardiogram Possible acute congestive heart failure, with preserved ejection fraction Plan: The patient was seen and evaluated Chest x-ray, labs and medications reviewed Currently on Unasyn Continued on bronchodilators Continued on oral diuretics Anticoagulated with Eliquis Stable and on room air Chest x-ray showing improvement Cleared for discharge from the pulmonary standpoint This patient was seen independently by the pulmonary nurse practitioner addressing pulmonary issues I have personally seen and examined the patient, performed the documentation and the assessment and plan as written. Number of minutes spent on the visit: 24.
--- NOTE | 2023-10-13 10:39 | P.PN ---
Subjective HISTORY OF PRESENT ILLNESS: The patient is an 78-year-old female with no prior documented history of CAD who presented with symptoms of cough, aspiration pneumonia and weakness. She was transferred to the ICU and had atrial fibrillation with episodes of rapid ventricular response. She is not aware of the arrhythmia. She has no prior cardiac history. She has fractured her hip about a year ago but prior to that has been active without any symptoms of chest discomfort or dyspnea. She denies any history of dizziness, palpitations or syncope. Her breathing is better. She denies any significant peripheral edema, no PND or orthopnea. She was started on IV Cardizem. On admission she was lethargic but appears to be awake and alert today with no complaints. She is a non-smoker, she has a history of hyperlipidemia. October 08: The patient is feeling well this morning, she feels tired but otherwise has no chest discomfort. She continues to be in sinus mechanism. She continues to have dyspnea and some cough. She had upper GI bleeding and she is scheduled to undergo endoscopy. She had no further episodes of atrial fibrillation. Her echocardiogram revealed a preserved systolic function with moderate mitral regurgitation. Her urinary output has been good. October 09: The patient is feeling better today. She underwent upper endoscopy yesterday and was found to have a hiatal hernia but no active bleeding. She has not had any further episodes of GI bleeding. Hemodynamically she is stable. She is in sinus mechanism with no further atrial fibrillation. Her urinary output has been good. She is on no vasopressors. She is afebrile. She is laying supine. October 10: The patient feels better today, sitting up, she feels that her breathing and cough are better. She denies any chest discomfort, dizziness or palpitations. She continues to be in normal sinus rhythm with no further atrial fibrillation. She was reinitiated on anticoagulation yesterday. Urine output has been stable. Hemodynamically she is stable. 10/12/2023 Patient examined this morning at the bedside. Patient currently denies chest pain or pressure. She denies shortness of breath. She remains on IV diuretics. Patient is maintaining sinus mechanism. She has been resumed on her Eliquis. Hemoglobin today 9.5. 10/13/2023 Patient examined this morning the bedside. Patient currently denies chest pain or pressure. She denies any shortness of breath. Vital signs are stable. Patient is hoping to be discharged home today. Hemoglobin 9.8. Creatinine 0.53. PHYSICAL EXAM: VITAL SIGNS: Reviewed. GENERAL: Well-developed in no acute distress. NECK: Supple. No JVD or thyromegaly LUNGS: Respirations even and unlabored. Lungs essentially clear to auscultation bilaterally. HEART: Regular rate and rhythm. S1 and S2 heard. EXTREMITIES: Normal range of motion. No clubbing or cyanosis. Peripheral pulses intact. No lower extremity edema ASSESSMENT: Acute left lower lobe pneumonia Acute hypoxic respiratory failure, secondary to above Paroxysmal atrial fibrillation, currently maintaining sinus mechanism Hyperlipidemia Acute upper GI bleed with anemia and 1 episode of coffee-ground emesis status post EGD revealing antral gastritis, large paraesophageal hiatal hernia and mild esophagitis Possible mild acute CHF with preserved EF, currently euvolemic PLAN: Continue current cardiac medications Patient is stable for discharge home today from a cardiac standpoint Further recommendations pending patient course Nurse practitioner note has been reviewed by physician. Signing provider agrees with the documented findings, assessment, and plan of care documented by TRAVELING PASSENGER AGENT as a scribe. Objective - Vital Signs Vital signs: Vital Signs Temp 98.6 F 10/13/23 08:03 Pulse 80 10/13/23 08:15 Resp 18 10/13/23 08:03 BP 147/76 10/13/23 08:03 Pulse Ox 92 L 10/13/23 08:03 FiO2 99 10/10/23 16:00 Intake & Output 10/12/23 10/13/23 10/13/23 18:59 06:59 18:59 Intake Total 808 20 130 Output Total 750 Balance 58 20 130 Intake: IV 230 20 10 Ampicillin-Sulbactam 3 gm 200 In Sodium Chloride 0.9% 100 ml @ 200 mls/hr IVPB Q6HR [facility] Rx#:[id number] Invasive Line 4 30 20 10 Intake, IV Titration 120 Amount Sodium Chloride 0.9% 1, 120 000 ml @ 10 mls/hr IV . Q24H [facility] Rx#:[id number] Oral 458 120 Output: Urine 750 Other: Voiding Method Bedside Commode Bedside Commode Bedside Commode # Voids 1 2 # Bowel Movements 1 1 - Labs CBC & Chem 7: 10/13/23 05:50 10/13/23 05:50 Labs: Abnormal Lab Results - Last 24 Hours (Table) 10/13/23 10/13/23 Range/Units 05:50 05:50 Hgb 9.8 L (11.4-16.0) gm/dL Hct 31.7 L (34.0-46.0) % MCHC 30.8 L (31.0-37.0) g/dL AST 54 H (14-36) U/L ALT 58 H (4-34) U/L Total Protein 5.3 L (6.3-8.2) g/dL Albumin 2.9 L (3.5-5.0) g/dL Microbiology - Last 24 Hours (Table) 10/07/23 17:58 Blood Culture - Final Blood
[2023-10-13 15:36] VITALS: BP 112/56; PULSE 88; TEMP 98.1
--- NOTE | 2023-10-13 17:22 | P.DS ---
Providers Date of admission: 10/06/23 06:56 Attending physician: Milagro Huerta Consults: 10/06/23 06:53 Consult Physician Stat Consulting Provider: Alessandro Mo Consult Reason/Comments: Sepsis, pneumonia Do you want consulting provider notified?: Yes 10/06/23 08:19 Consult Physician Urgent Consulting Provider: Kareem Bradley Consult Reason/Comments: Pneumonia with sepsis Do you want consulting provider notified?: Yes 10/08/23 04:53 Consult Physician Stat Consulting Provider: Valerio Savage Consult Reason/Comments: atrial fibrillation with rapid ventricular response Do you want consulting provider notified?: Yes Primary care physician: Milagro Huerta [facility] Course: HISTORY OF PRESENT ILLNESS: This is an 78 -year-old female with a previous medical history significant for hyperlipidemia, GERD with esophagitis, osteoarthritis, patient was in her usual state of health till about 2 days ago when she had a coughing episode while she was eating, according to her she probably choked on her food, and she was complaining of some indigestion at that time, patient felt better after few hours, and last night she was having fever and chills and she was coughing quite a bit of phlegm associated with increased sore throat, so she was brought into the emergency department at [facility] today because of shortness of breath, and because is not feeling good, she appeared to be quite drowsy, she denies any sick contact, she denies any diarrhea, she did have 1 episode of vomiting, she does cough up some black stuff, she did receive Pepto- Bismol from her earlier yesterday, patient was seen and evaluated in the emergency department, she was in respiratory distress, she did have lactic acidosis with a lactic acid of 5.6, she was given IV fluid resuscitation, her chest x-ray showed significant pneumonia in the left side involving the upper lobe and lower lobe, patient was started on oxygen at 4 L nasal cannula, her oxygen saturation was around 95%, patient appears to be breathing shallower, pulmonary consultation was obtained from Dr. Peng, patient did receive Zithromax as well as Zosyn in the ER, she will need to be admitted to the hospital for further evaluation recommendation she will be started nebulized treatment in the form of Albuterol 3ml nebulization 4 times every day, also she will be started on Mucinex 600 mg orally twice every day, she will have sputum culture, we will check urine Legionella antigen, mycoplasma antibody IgG and IgM, I will broaden the antibiotic to rule out any MRSA pneumonia started on vancomycin 1000 mg x 1 and pharmacy to dose its peak and trough, and as stated earlier pulmonary consultation for further evaluation and recommendation for possible ICU care, I will consult infectious disease as well Dr. Mo. 10/06: Patient continues to be somewhat short of breath, she continues to be on oxygen support, she appears to be pale, she appears to be confused, she appears in severe sepsis, I have asked the nursing staff to order blood gases, and lactic acid, she will be transferred to the intensive care unit for further evaluation and recommendation, continue IV fluid resuscitation, continue patient on IV antibiotic in the form of vancomycin as well as cefepime per infectious disease recommendation, we will continue to monitor the patient very closely, I believe the patient will end up on the ventilator due to her altered level of consciousness. 10/07: Patient is laying down in bed in no apparent distress, yesterday she went into atrial fibrillation with rapid ventricular response, she initially was st arted on a Cardizem drip, and after that she was converted back to sinus rhythm, she was seen in consultation by cardiology, she will be started on Eliquis 5 mg orally twice every day for stroke prevention, patient is at 3 L nasal cannula, her oxygen saturation 98%, she is doing better, chest x-ray appears worse, hazmat technician recommended for the patient to be transferred to the telemetry unit at this time, patient appears in better spirits today, will continue current treatment plan, continue the patient on IV antibiotic in the form of vancomycin as well as cefepime, infectious and pulmonary medicine are following. 10/08: Patient underwent EGD today by Dr. Nelson showed mild gastritis, no evidence of any active gastric bleed at this time, her hemoglobin is stable at this time, will continue to hold Eliquis for another 24 hours, restarted back tomorrow morning, patient has been in sinus rhythm at this point in time, she denies any chest pain, she continues to have some coughing minimal from production, sputum cultures positive for E. coli, she was switched to Unasyn per infectious disease she was taken on vancomycin as well as cefepime, will continue to monitor the patient very closely, she will be kept in the ICU for another 24 hours, patient has been on 2 L nasal cannula, will continue with that continue with aggressive pulmonary toileting as well 10/09: Patient is laying down in bed in no apparent distress, she denies any chest pain, she continues to have minimal coughing, she continues to use his incentive spirometer, she has no abdominal pain, nausea vomiting or diarrhea, she had a good bowel movement, she is awaiting to go to a telemetry note in the next 24 hours, she has not been using the oxygen today, appears to be a lot better, her x-ray continues to show pneumonia on the left side, we will continue to monitor the patient very closely, continue IV antibiotic in the form of Unasyn 3 g IV piggyback every 6 hours, sputum culture showed E. coli likely aspiration pneumonia. 10/10: Patient is being moved to a telemetry unit today, she denies any headache at this time, she appears to be somewhat upset, because she wants to go home, she went into atrial fibrillation with rapid ventricular response, she did receive an extra dose of Cardizem 60 mg by cardiology, continue Eliquis 5 mg orally twice every day for stroke prevention, monitor the patient very closely, patient continues on IV antibiotic in the form of Unasyn 3 g IV piggyback every 6 hours, patient is not requiring any oxygen, patient has been followed by pulmonary medicine and cardiology along with infectious disease, there is no new changes at this time, she did have a good bowel movement, no diarrhea, no soreness in her mouth, her thrush is much better, she has no edema in both lower extremities, her Lasix is down to 40 mg IV push every 24 hours, repeat the patient labs including CBC CMP and magnesium level tomorrow morning. 10/11: Patient remains on 3 S. She is currently laying in bed in no acute distress. Patient denies chest pain or shortness of breath. Lung sounds relatively clear diminished bilateral bases. Continues Cardizem 3 times daily, continue Eliquis 5 mg twice daily, and Unasyn 3 g IV piggyback every 6 hours. Patient is satting well on room air. We will repeat labs tomorrow morning. Patient likely to be discharged home within the next 24 to 48 hours. 10/12: Patient lying in bed with at bedside. Patient remains on room air and is satting well. Will switch to oral Augmentin 875-125 mg twice daily for 7 days. Lung sounds clear, patient denies chest pain or shortness of breath. We will continue on Eliquis 5 mg twice daily, Cardizem 3 times daily, and 40 mg p.o. Lasix once daily. Patient was able to ambulate in the hallways with 2 wheeled walker without difficulty. Patient stable for discharge and we will see her in the office this coming week. DISCHARGE DIAGNOSES: 1. Acute hypoxemic respiratory failure due to multilobar left sided pneumonia with E. coli. 2. Lactic acidosis likely due to pneumonia with severe sepsis. 3. Metabolic encephalopathy due to severe sepsis due to underlying pneumonia. 4. Atrial fibrillation with rapid ventricle response. 5. Coffee-ground emesis with acute symptomatic anemia. 6. Hyperlipidemia. 7. Anxiety/depressive disorder. 8. Vitamin D deficiency. 9. Osteoarthritis. 10. GERD with hiatal hernia. 11. Spondylosis of the lumbar spine. 12. Acute on chronic diastolic heart failure. 13. Thrush. Impression and plan of care have been directed as dictated by the signing physician. Nellie Saenz, nurse practitioner acting as scribe for signing physician. Patient Condition at Discharge: Stable Plan - Discharge Summary Discharge Rx Participant: No New Discharge Prescriptions: New Furosemide [Lasix] 40 mg PO DAILY #30 tab Aspirin 81 mg PO HS tab Amoxic-Pot Clav 875-125Mg [Augmentin 875-125] 1 tab PO Q12HR 7 Days #14 tab Diltiazem Oral [Cardizem*] 30 mg PO TID 30 Days #90 tab Apixaban [Eliquis] 5 mg PO BID #60 tab Nystatin 100,000 Unit/ml Susp [Mycostatin Oral Susp] 500,000 unit PO QID 7 Days #473 ml Continue Cholecalciferol [Vitamin D3 (25 Mcg = 1000 Iu)] 25 mcg PO DAILY Bimatoprost [Lumigan 0.01% Ophth Soln] 1 drop BOTH EYES HS Atorvastatin [Lipitor] 40 mg PO DAILY Ezetimibe [Zetia] 10 mg PO DAILY Lansoprazole [Prevacid] 30 mg PO DAILY Gabapentin 300 mg PO TID Escitalopram [Lexapro] 5 mg PO HS Calcium Carbonate [Calcium] 600 mg PO HS Cranberry 4200 Mg 4,200 mg PO DAILY HYDROcodone/APAP 5-325MG [[place] 5-325] 1 tab PO BID PRN PRN Reason: Pain Zoledronic Acid 5Mg/100Ml Pmx [Reclast] 1 dose IVPB Q365D Discharge Medication List Atorvastatin [Lipitor] 40 mg PO DAILY 11/06/22 [History] Bimatoprost [Lumigan 0.01% Ophth Soln] 1 drop BOTH EYES HS 11/06/22 [History] Calcium Carbonate [Calcium] 600 mg PO HS 11/06/22 [History] Cholecalciferol [Vitamin D3 (25 Mcg = 1000 Iu)] 25 mcg PO DAILY 11/06/22 [History] Cranberry 4200 Mg 4,200 mg PO DAILY 11/06/22 [History] Escitalopram [Lexapro] 5 mg PO HS 11/06/22 [History] Gabapentin 300 mg PO TID 11/06/22 [History] Ezetimibe [Zetia] 10 mg PO DAILY 10/06/23 [History] HYDROcodone/APAP 5-325MG [[place] 5-325] 1 tab PO BID PRN 10/06/23 [History] Lansoprazole [Prevacid] 30 mg PO DAILY 10/06/23 [History] Zoledronic Acid 5Mg/100Ml Pmx [Reclast] 1 dose IVPB Q365D 10/06/23 [History] Amoxic-Pot Clav 875-125Mg [Augmentin 875-125] 1 tab PO Q12HR 7 Days #14 tab 10/13/23 [Rx] Apixaban [Eliquis] 5 mg PO BID #60 tab 10/13/23 [Rx] Aspirin 81 mg PO HS tab 10/13/23 [Rx] Diltiazem Oral [Cardizem*] 30 mg PO TID 30 Days #90 tab 10/13/23 [Rx] Furosemide [Lasix] 40 mg PO DAILY #30 tab 10/13/23 [Rx] Nystatin 100,000 Unit/ml Susp [Mycostatin Oral Susp] 500,000 unit PO QID 7 Days #473 ml 10/13/23 [Rx] Follow up Appointment(s)/Referral(s): Milagro Huerta MD [Primary Care Provider] - 1 Week
--- NOTE | 2023-10-13 22:19 | P.PN ---
Subjective Progress Note Date: 10/13/23 Principal diagnosis: Reason for follow-up is pneumonia and Patient is a 78-year-old female with a past medical history significant for hyperlipidemia chronic back pain abdomen hernia presenting to the hospital for evaluation of increasing shortness of breath and cough patient has been diagnosed with sepsis secondary pneumonia and admitted to hospital. On today's evaluation that is 10/13/2023, the patient continues to be afebrile, the patient is on room air and breathing comfortably, the Pt denies having any chest pain patient cough is decreased in intensity and mostly dry in nature the patient denies having any abdominal pain no vomiting or any diarrhea, patient mention feeling better. Patient white count is 8.9 creatinine 0.53 blood culture negative Objective - Vital Signs Vital signs: Vital Signs Temp 98.6 F 10/13/23 08:03 Pulse 80 10/13/23 08:15 Resp 18 10/13/23 08:03 BP 147/76 10/13/23 08:03 Pulse Ox 92 L 10/13/23 08:03 FiO2 99 10/10/23 16:00 Intake & Output 10/12/23 10/13/23 10/13/23 18:59 06:59 18:59 Intake Total 808 20 130 Output Total 750 Balance 58 20 130 Intake: IV 230 20 10 Ampicillin-Sulbactam 3 gm 200 In Sodium Chloride 0.9% 100 ml @ 200 mls/hr IVPB Q6HR [facility] Rx#:[id number] Invasive Line 4 30 20 10 Intake, IV Titration 120 Amount Sodium Chloride 0.9% 1, 120 000 ml @ 10 mls/hr IV . Q24H [facility] Rx#:[id number] Oral 458 120 Output: Urine 750 Other: Voiding Method Bedside Commode Bedside Commode Bedside Commode # Voids 1 2 # Bowel Movements 1 1 - Exam GENERAL DESCRIPTION: An elderly female lying in bed in no distress RESPIRATORY SYSTEM: Unlabored breathing , decreased breath sounds at bases HEART: S1 S2 regular rate and rhythm , ABDOMEN: Soft , no tenderness EXTREMITIES: No edema feet - Labs CBC & Chem 7: 10/13/23 05:50 10/13/23 05:50 Labs: Abnormal Lab Results - Last 24 Hours (Table) 10/13/23 10/13/23 Range/Units 05:50 05:50 Hgb 9.8 L (11.4-16.0) gm/dL Hct 31.7 L (34.0-46.0) % MCHC 30.8 L (31.0-37.0) g/dL AST 54 H (14-36) U/L ALT 58 H (4-34) U/L Total Protein 5.3 L (6.3-8.2) g/dL Albumin 2.9 L (3.5-5.0) g/dL Microbiology - Last 24 Hours (Table) 10/07/23 17:58 Blood Culture - Final Blood Assessment and Plan (1) Leukocytosis Status: Acute Code(s): D72.829 - ELEVATED WHITE BLOOD CELL COUNT, UNSPECIFIED SNOMED Code(s): 607444694 (2) Pneumonia Status: Acute Code(s): J18.9 - PNEUMONIA, UNSPECIFIED ORGANISM SNOMED Code(s): 221570151 Plan: 1patient presented to hospital with sepsis in this patient who did have a fever tachycardia elevated lactic acid source likely pneumonia with a question of community-acquired versus resistant gram-negative/gram-positive pathogen 2-did have elevated procalcitonin of 22 blood and sputum cultures currently growing E. coli it is a sensitive pathogen 3-patient has shown overall clinical improvement patient be able to finish therapy with oral Augmentin and close outpatient follow-up Dictation was produced using [employer] dictation software. please excuse any grammatical, word or spelling errors. Time with Patient: Less than 30
== END 2023-10-13 17:59 | disposition home or self-care (01) | DRG 871 ==
LOC: EC 04:57 → 3SCARD 06:56 → 2SICU 10-07 17:14 → 3SCARD 10-11 16:03
PROVIDERS: ADMIT Internal Medicine; ATTEND Internal Medicine
PROC: 5A09357 Assistance with Respiratory Ventilation, Less than 24 Consecutive Hours, Continuous Positive Airway Pressure (ICD-10-PCS; 2023-10-06)
PROC: 0DB78ZX Excision of Stomach, Pylorus, Via Natural or Artificial Opening Endoscopic, Diagnostic (ICD-10-PCS; principal; 2023-10-09 08:15)
DX: A41.51 Sepsis due to Escherichia coli [E. coli] (principal); G93.41 Metabolic encephalopathy; J96.01 Acute respiratory failure with hypoxia; J69.0 Pneumonitis due to inhalation of food and vomit; I50.33 Acute on chronic diastolic (congestive) heart failure; J15.5 Pneumonia due to Escherichia coli; K29.71 Gastritis, unspecified, with bleeding; E87.20 Acidosis, unspecified; D62 Acute posthemorrhagic anemia; B37.0 Candidal stomatitis; I11.0 Hypertensive heart disease with heart failure; R65.20 Severe sepsis without septic shock; I48.0 Paroxysmal atrial fibrillation; F32.A Depression, unspecified; I34.0 Nonrheumatic mitral (valve) insufficiency; T17.928A Food in respiratory tract, part unspecified causing other injury, initial encounter; K21.00 Gastro-esophageal reflux disease with esophagitis, without bleeding; G62.9 Polyneuropathy, unspecified; E78.5 Hyperlipidemia, unspecified; F41.9 Anxiety disorder, unspecified; E55.9 Vitamin D deficiency, unspecified; K44.9 Diaphragmatic hernia without obstruction or gangrene; M47.816 Spondylosis without myelopathy or radiculopathy, lumbar region; G89.29 Other chronic pain; K46.9 Unspecified abdominal hernia without obstruction or gangrene; M54.9 Dorsalgia, unspecified; Z79.899 Other long term (current) drug therapy; Z87.891 Personal history of nicotine dependence; Z96.651 Presence of right artificial knee joint; W44.F3XA Food entering into or through a natural orifice, initial encounter
CPT/HCPCS: 36415; 36600; 43239; 51798; 71045; 80048; 80053; 80202; 81001; 82805; 83605; 83735; 83880; 84132; 84145; 84443; 84484; 85025; 85610; 85730; 86738; 87040; 87070; 87077; 87186; 87205; 87449; 87636; 88305; 93005; 93306; 94640; 94660; 94760; 96361; 96365; 96366; 96367; 99291

== ENCOUNTER → 2023-10-17 | Outpatient (CLI) | payer MEDICARE ==
--- NOTE | 2023-10-20 22:02 | XR ---
EXAMINATION TYPE: XR chest 2V DATE OF EXAM: 10/17/2023 COMPARISON: 10/13/2023 HISTORY: 78-year-old female recent pneumonia, J6 9.0 TECHNIQUE: Frontal and lateral views FINDINGS: Heart normal size. Aorta and pulmonary vasculature within normal limits. Patchy opacity remains throu ghout the left mid and lower lung with improving aeration compared to prior study. Residual density r emains. No pleural effusion. IMPRESSION: Residual patchy infiltrate left mid and lower lung but with improving aeration compared to 10/13/2023.
== END | disposition home or self-care (01) ==
LOC: RADXRMAIN 15:38
PROVIDERS: ATTEND Internal Medicine
DX: J69.0 Pneumonitis due to inhalation of food and vomit (principal); R91.8 Other nonspecific abnormal finding of lung field
CPT/HCPCS: 71046

== ENCOUNTER → 2023-11-29 | Outpatient (CLI) | payer MEDICARE | END | disposition home or self-care (01) | LOC: LABPRL 11:00 | PROVIDERS: ATTEND Internal Medicine | DX: N39.0 Urinary tract infection, site not specified (principal) | CPT/HCPCS: 87086 ==

== ENCOUNTER → 2024-01-16 | Outpatient (CLI) | payer MEDICARE ==
[~2024-01-16] MED LIST changes: +IODINE/POTASSIUM IODIDE 14 ML BOTTLE ONE; -SODIUM CHLORIDE 0.9% 500 ML 500 ML in EMPTY BAG 1 BAG IV PRN; -ZOLEDRONIC ACID 5 MG in SODIUM CHLORIDE 0.9% 100 ML IV NR
--- NOTE | 2024-01-16 16:19 | NM ---
EXAMINATION TYPE: NM DatScan Brain SPECT DATE OF EXAM: 01/16/2024 COMPARISON: NONE CLINICAL INDICATION: Female, 78 years old with history of R25.1 tremor; TECHNIQUE: 10 drops of Lugol's solution was administered 1 hour prior to injection as a thyroid bloc annalisa agent. After the administration of 4.14 mCi I-123 Ioflupane DaTscan. Images obtained 3 hours p ost injection. SPECT images of the brain were acquired with axial and coronal reconstructions. FINDINGS: The uptake of radiotracer within the patient's caudate nuclei and putamina is symmetric and crescent- shaped. IMPRESSION: There is no scintigraphic evidence of a neurodegenerative disorder (Parkinson's disease, Multisystem atrophy or Progressive supranuclear palsy), as there is symmetric uptake of I-123 Ioflupan (DaTscan) within the caudate nuclei and putamina. [facility], , 01/16/2024 4:16 PM
== END | disposition home or self-care (01) ==
LOC: RADNMMAIN 10:45
PROVIDERS: ATTEND Internal Medicine
DX: R25.1 Tremor, unspecified (principal)
CPT/HCPCS: 78803

== ENCOUNTER → 2024-01-31 | Day surgery (SDC) | payer MEDICARE ==
[~2024-01-31] MED LIST changes: +ALPRAZolam 0.25 MG TAB PO PRN; +ALPRAZolam 0.5 MG TAB PO PRN; +ATORVASTATIN 40 MG TAB PO SCH; +DILTIAZEM ORAL 30 MG TAB PO SCH; +ESCITALOPRAM 5 MG TAB PO SCH; +EZETIMIBE 10 MG TAB PO SCH; -IODINE/POTASSIUM IODIDE 14 ML BOTTLE ONE; +NITROGLYCERIN SL TABS 0.4 MG TAB SUBLINGUAL PRN; +RX INFO: IV CONTRAST WAS GIVEN 1 EACH MISC MISCELLANE PRN; +SODIUM CHLORIDE 0.9% 1,000 ML IV SCH
[2024-01-31] MEDS: IV FLUID CONTINUATION 1,000 ML IV ONE (07:30)
[2024-01-31] MEDS: ASPIRIN 325 MG TAB PO ONE (07:32)
[2024-01-31] MEDS: SODIUM CHLORIDE 0.9% 1,000 ML in EMPTY BAG 1 BAG IV SCH (07:33)
[2024-01-31 07:39] VITALS: TEMP 98.1
[2024-01-31 07:47] LABS: Anisocytosis Slight; Basophils % (A) 1 %; Eosinophils # (A) 0.2 k/uL (0-0.7); Eosinophils % (A) 4 %; HCT 38.5 % (34.0-46.0); HGB 12.7 gm/dL (11.4-16.0); Lymphocytes # (A) 1.3 k/uL (1.0-4.8); Lymphocytes % (A) 23 %; MCH 26.3 pg (25.0-35.0); MCHC 32.9 g/dL (31.0-37.0); MCV 80.1 fL (80.0-100.0); Mean Platelet Volume 8.2; Microcytosis Slight; Monocytes # (A) 0.4 k/uL (0-1.0); Monocytes % (A) 7 %; Neutrophils # (A) 3.6 k/uL (1.3-7.7); Neutrophils % (A) 63 %; Platelet Count 198 k/uL (150-450); RBC 4.81 m/uL (3.80-5.40); RDW 18.7 % (11.5-15.5); WBC 5.6 k/uL (3.8-10.6)
[2024-01-31 07:53] LABS: African American GFR (CKD) >90 (>60 ml/min/1.73 sqM); Anion Gap 5 mmol/L; Blood Urea Nitrogen 13 mg/dL (7-17); Calcium 9.5 mg/dL (8.4-10.2); Carbon Dioxide 25 mmol/L (22-30); Chloride 110 mmol/L (98-107); Glucose 89 mg/dL (74-99); Non-African American GFR(CKD) 83 (>60 ml/min/1.73 sqM); Potassium 3.9 mmol/L (3.5-5.1); Sodium 140 mmol/L (137-145)
[2024-01-31] MEDS: HEPARIN SODIUM,PORCINE (1 ML) 2,500 UNIT in SODIUM CHLORIDE 0.9% 250 ML IRRIGATION PRN (08:58)
[2024-01-31] MEDS: HEPARIN SODIUM,PORCINE 10,000 UNIT in SODIUM CHLORIDE 0.9% 1,000 ML IRRIGATION PRN (08:58)
[2024-01-31] MEDS: fentaNYL (PF) 50 MCG/1 ML VIAL IVP ONE (09:08)
[2024-01-31] MEDS: LIDOCAINE 1% INJ 10MG/ML (20 ML MDV) SQ ONE (09:11)
[2024-01-31] MEDS: VERAPAMIL SYRINGE (5 MG/10 ML) INTRAARTER ONE (09:12)
[2024-01-31] MEDS: MIDAZOLAM 2 MG/2 ML VIAL IVP ONE (09:14)
[2024-01-31] MEDS: HEPARIN SODIUM 1,000 UN/ML (10ML VL) IVP ONE (09:17)
[2024-01-31] MEDS: IOPAMIDOL-370 100ML BTL INJ ONE (09:22)
--- NOTE | 2024-01-31 09:48 | P.CARDCATH ---
Date of Procedure: 01/31/24 Description of Procedure: Cardiac Catheterization: The patient is an 78-year-old female with known history of hyperlipidemia, paroxysmal A-fib patient, symptoms of dyspnea who had an abnormal MPI with lateral wall ischemia. Recommendations were made regarding cardiac catheterization, the risks and the complications were discussed with the patient who is in full understanding and agreement. Procedure Description: Patient was brought to sanitation laborer in fasting semi-sedated state after receiving Fentanyl and Benadryl achieiving moderate conscious sedated state. Using Xylocaine Anesthesia and modified Seldinger technique, a 6-Comoran sheath was introduced in the right radial artery . Subsequently, selective coronary angiography was performed using a 5-Comoran 3.5 bend Ravindra catheter. Multiple views of the coronary artery including hemiaxial views were obtained. The pigtail catheter was used to cross the aortic valve and LVEDP was calculated. Following that, catheter and sheath were removed. Hemostasis was obtained with deployment of vascular band . There was no immediate complication. Patient was returned to room in stable condition. Of note, the patient received a total of 4000 units of intravenous heparin as well as intra-arterial verapamil. Findings: Left main: This is a large size vessel, bifurcating into LAD and left circumflex, left main has no obstructive disease LAD: This is a large size vessel, reaching to the apex, giving rise to 3 diagonal branch of moderate caliber. The LAD and its branches have no obstructive disease Left circumflex: This is a large nondominant vessel giving rise to a large obtuse marginal branch that has no obstructive disease RCA: This is a large dominant vessel, bifurcating distally to PDA and PLV, the right coronary artery and its branches have no obstructive disease Left Ventriculogram: Not performed Hemodynamics: There was no gradient across aortic valve, LVEDP was 20-24 mmHg Conclusion: 1. Normal coronary arteries 2. Right dominance 3. Elevated LVEDP Recommendations: I have recommended to continue medical therapy with the aggressive coronary risks modifications been initiated and reinitiate treatment with anticoagulation because of the paroxysmal atrial fibrillation. The findings and the recommendations were discussed with the patient and the family and they were in full understanding and agreement. Duration of sedation is 17 minutes.
[2024-01-31 10:17] VITALS: RESP 16
[2024-01-31 12:34] VITALS: BP 138/63; PULSE 75
== END | disposition home or self-care (01) ==
LOC: CATHCVL 07:02
PROVIDERS: ATTEND Internal Medicine Interventional Cardiology
CPT/HCPCS: 80048; 85025; 93458

== ENCOUNTER → 2024-07-08 | Outpatient (CLI) | payer MEDICARE ==
[2024-07-08 13:06] LABS: African American GFR (CKD) 82 (>60 ml/min/1.73 sqM); Blood Urea Nitrogen 14 mg/dL (7-17); Non-African American GFR(CKD) 71 (>60 ml/min/1.73 sqM)
--- NOTE | 2024-07-08 13:50 | CT ---
EXAMINATION TYPE: CT chest w con CT DLP: 193.80 mGycm, Automated exposure control for dose reduction was used. DATE OF EXAM: 07/08/2024 1:37 PM COMPARISON: CT chest 07/17/2023, CTA chest 07/25/2022. CLINICAL INDICATION:Female, 79 years old with history of R91.1 Right upper lobe pulmonary nodule; PHH , Right upper lobe pulmonary nodule TECHNIQUE: Multiple axial images were obtained through the chest following the administration of 100 cc of Isovue 300. . Coronal and sagittal reformats reviewed. FINDINGS: LUNGS/ PLEURA: No pleural effusion, pneumothorax, focal consolidation. Right lower lobe linear scarri ng and/or atelectasis. Stable right lower lobe calcified granuloma. Stable 4.3 mm right mid lung pul monary nodule (series 4, image 30). Stable anterior right upper lobe 4.8 mm solid pulmonary nodule (s eries 4, image 24). Additional few stable scattered pulmonary micronodules. No new or enlarging pulmo nary nodules. AIRWAY: Patent and unremarkable.. HEART: Size within normal limits.No pericardial effusion. No significant coronary artery calcificatio ns. MEDIASTINUM: No gross evidence of adenopathy. VASCULATURE: No aortic aneurysm. Mild atherosclerotic calcification of the aorta and its branches. MUSCULOSKELETAL: Moderate disc degeneration changes are present throughout the thoracolumbar spine. N o acute osseous abnormality. SOFT TISSUES/LYMPH NODES: Unremarkable. LOWER NECK: No significant findings. UPPER ABDOMEN: Several scattered calcified granulomas within the spleen. Moderate to large size hiata l hernia redemonstrated with approximately 50% of the stomach intrathoracic. IMPRESSION: 1. Several stable scattered pulmonary nodules measuring less than 5 mm dating back to 2022 and consid ered benign. No new or enlarging pulmonary nodules. No further follow-up required per guidelines. 2. Moderate to large size hiatal hernia redemonstrated with approximately 50% of the stomach intratho racic. [facility], , 07/08/2024 1:47 PM
== END | disposition home or self-care (01) ==
LOC: RADCTMAIN 12:17
PROVIDERS: ATTEND Internal Medicine
DX: K44.9 Diaphragmatic hernia without obstruction or gangrene (principal); R91.8 Other nonspecific abnormal finding of lung field
CPT/HCPCS: 82565; 84520; 71260; 36415; Q9967

== ENCOUNTER → 2024-07-08 | Outpatient (CLI) | payer MEDICARE ==
--- NOTE | 2024-07-08 23:10 | US ---
EXAMINATION TYPE: US arterial LE single level DATE OF EXAM: 07/08/2024 3:10 PM COMPARISONS: None. CLINICAL INDICATION: Female, 79 years old with history of I73.9 PERIPHERAL VASCULAR DISEASE, UNSPECIF IED; TECHNIQUE: Systolic pressures were taken of the upper and lower extremity arteries with ankle-brachia l indices and toe brachial indices calculated bilaterally. History of: Smoker: Previous Hypertension: no Diabetic: no Hyperlipidemia: yes TIA/CVA: no Previous Vascular Surgery: no CAD: no IA: no Vascular Ulcers: no Claudication: yes, left Gangrene: no Varicose veins in rt leg FINDINGS: Doppler Waveforms: Right: Multiphasic Left: Multiphasic Brachial Artery systolic pressure: Right: 123 Left: 124 Posterior Tibial artery systolic pressure: Right: 140 Left: 143 Dorsalis Pedis artery systolic pressure: Right: 147 Left: 150 Ankle-Brachial Indices: Right: 1.2 Left: 1.2 (Normal > 0.6; Mild 0.35 - 0.59, Moderate 0.12 - 0.34, Severe <0.12) IMPRESSION: DARRELL: Right: Normal 0.9 - 1.4, Recommendation: None Left: Normal 0.9 - 1.4, Recommendation: None [facility], , 07/08/2024 11:08 PM
== END | disposition home or self-care (01) ==
LOC: RADUSWWP 13:45
PROVIDERS: ATTEND Internal Medicine
DX: I73.9 Peripheral vascular disease, unspecified (principal)
CPT/HCPCS: 93922